=== PATIENT | female | born 1945 | race Caucasian/White ===

== ENCOUNTER 2017-02-27 13:48 | Inpatient (IN) | payer MEDICARE ==
[~2017-02-27] VITALS: Ht 167.6 cm; Wt 76.1 kg
--- NOTE | ~2017-02-27 | HEMODYNAMI ---
PATIENT:PAULINA CHARLES MEDICAL RECORD: [id number] : 41 LOCATION:D.MS [facility]2201 ADMISSION DATE: 02/28/17 Generatedon:03/11/201712:35 Patient name: PAULINA CHARLES Patient #: [id number] SSN: DO B: 1945 Date of study: 03/11/2017 Page: Of Hemodynamic Procedure Report Patient Data Patient Demographics Procedure consent was obtained First Name: PAULINA Gender: Female Last Name: RAACELI : 1945 Middle Initial: M Age: 71 year(s) Patient #: [id number] Race: Unknown Additional ID: [id number] Contact details Address: [address] [place] [address] ROAD State: [place] City: [place] Zip code: [address] Admission Admission Data Admission Date: 02/28/2017 Admission Time: 14:51 Room #: D.2201 Procedure Procedure Types Cath Procedure Peripheral Cath Diagnostic Procedure Miscellaneous Procedure Description Procedure Date Procedure Date: 03/11/2017 Procedure Start Time: 12:16 Procedure Staff Name Function Scar Nunez MD Performing Physician Shazia Moulton RN Nurse Susan Amos RT Scrub Cosme Rea RT Monitor Procedure Data Cath Procedure Fluoroscopy Diagnostic fluoroscopy Total fluoroscopy Time: 1.8 time: 1.8 min min Diagnostic fluoroscopy Total fluoroscopy dose: 48 dose: 48 mGy mGy Contrast Material Contrast Material Type Amount (ml) Isovue 300 25 Hemodynamics Rest Heart Rate: 85 (bpm) Snapshots Pre Cath Intra NCS Post Cath Vital Signs Time Heart Resp SPO2 NIBP (mmHg) Rhythm Pain Sedation Rate (ipm) (%) Status Level (bpm) 11:55:54 84 5 154/84(115) NSR 0 (11) 10(A) , No pain 12:00:12 83 149/82(122) NSR 0 (11) 10(A) , No pain 12:04:28 82 24 143/76(109) NSR 0 (11) 10(A) , No pain 12:08:38 85 2 141/95(124) NSR 0 (11) 10(A) , No pain 12:12:50 85 3 98 142/86(117) NSR 0 (11) 10(A) , No pain 12:17:04 82 30 98 142/81(125) NSR 0 (11) 10(A) , No pain 12:21:20 84 98 149/79(122) NSR 0 (11) 10(A) , No pain 12:26:13 81 26 97 152/83(120) NSR 0 (11) 10(A) , No pain 12:30:33 84 5 97 146/75(122) NSR 0 (11) 10(A) , No pain 12:34:47 81 23 97 148/86(126) NSR 0 (11) 10(A) , No pain Procedure Log Time Note 11:48:02 Cosme Rea RT (R) (CV) sent for patient. Start room use. 11:48:12 Time tracking: Regular hours 11:48:17 Plan of Care:Hemodynamics will remain stable., Cardiac rhythm will remain stable., Comfort level will be maintained., Respiratory function will remain adequate., Patient/ family verbilizes understanding of procedure., Procedure tolerated without complication., Recovers from procedure without complications.. 11:48:26 Patient received from Med/Surg to IR Alert and oriented. Tansferred to table in Supine position. 11:48:30 Correct patient and procedure confirmed by team. 11:48:32 Signed procedure consent form obtained from patient. 11:48:34 ECG and BP/O2 sat monitors applied to patient. 11:48:35 Full Disclosure recording started 11:48:36 - 11:48:39 H&P Date Dictated: 03/11/2017 Within 30 days and on chart.. 11:48:43 Pre-procedure instructions explained to patient. 11:48:45 Family unavailable. 11:48:47 Patient NPO since Midnight. 11:48:49 Is the patient allergic to Iodine/contrast media? No. 11:48:50 Is patient on blood thinner?No 11:48:55 Use device set IR Diagnostic 11:48:56 Bag Decanter opened to sterile field. 11:48:57 Sterile Angiographic Pack opened to sterile field. 11:49:12 Patient pain scale 0/10 no pain\. 11:49:26 Pre-op teaching completed and patient verbalized understanding. 11:49:47 Unable to provide pre-op teaching due to educational barrier. pt deaf wrote and communicated with note pad 11:54:48 Vital chart was started 11:54:49 Baseline sample Acquired. 11:55:00 Alarms reviewed by R. N. 11:55:01 Sharps counted by scrub and verified by R.N. 11:55:07 Right abdomen area was prepped with chlora-prep and draped in sterile fashion 12:14:16 Physician arrived 12:14:16 --------ALL STOP TIME OUT------ 12:14:17 Final Timeout: patient, procedure, and site verified with staff and physician. All members of the team are in agreement. 12:14:20 Right abdomen site verified by team. 12:14:29 Sedation plan: Local Anesthetic Lidocaine 12:16:01 Procedure started. 12:22:47 STOPCOCK 3-WAY LARGE BORE opened to sterile field. 12:25:04 STOPCOCK 3-WAY LARGE BORE opened to sterile field. 12:25:05 Cook DOC .035 guide wire opened to sterile field. 12:25:07 Abscession 8Fr drainage catheter opened to sterile field. 12:32:55 Procedure ended.(Physican Out) 12:33:40 Fluoroscopy time 01.80 minutes. 12:33:45 Fluoroscopy dose: 48 mGy 12:33:45 Flurop Dose total: 48 12:33:54 Contrast amount:Isovue 300 25ml. 12:33:56 Sharps counted by scrub and verified by R.N. 12:33:58 Insertion/operative site no bleeding no hematoma. 12:34:06 Post Abdominal area:stable 12:34:12 Post procedure instruction explained to patient.Patient verbalizes understanding. 12:34:13 Procedure and supply charges have been captured, reviewed, submitted an d are correct. 12:34:19 Report given to Med/Surg. 12:34:23 Patient transfered to Med/Surg with Bed. 12:35:27 Vital chart was stopped Device Usage Item Name Manufacture Quantity Catalog Hospital Part Current Minima l Lot# / Number Charge Number Stock Stock Serial# Code Bag Decanter Microtek 1 [id number] [id number] 5 Medical Inc. Sterile Cardinal 1 [id number] [id number] 5 Angiographic [facility] [id number] 220795 0399 [id number] 5 [id number] 3-WAY LARGE [id number] BORE Cook [facility] Cook Medical 1 [id number] 970675 834063 5 [id number] .035 guide wire Abscession Angiodynamics 1 [id number] 706080 392111 864083 5 8Fr drainage catheter Signature Audit [place] Stage Time Signature Unsigned Intra-Procedure 03/11/2017 Cosme 12:35:24 PM Rona RT (R) (CV) Signatures Monitor : Cosme Signature : Rona RT Date : Time : [place] [id number] [place] [address]
--- NOTE | ~2017-02-27 | HEMODYNAMI ---
PATIENT:PAULINA CHARLES MEDICAL RECORD: [id number] : 41 LOCATION:D.MS [facility]2201 ADMISSION DATE: 02/28/17 Generatedon:03/06/201715:02 Patient name: PAULINA CHARLES Patient #: [id number] SSN: DO B: 1945 Date of study: 03/06/2017 Page: Of Hemodynamic Procedure Report Patient Data Patient Demographics Procedure consent was obtained First Name: PAULINA Gender: Female Last Name: ARACELI : 1945 Middle Initial: M Age: 71 year(s) Patient #: [id number] Race: Unknown Additional ID: [id number] Contact details Address: [address] [place] [address] ROAD State: [place] City: [place] Zip code: [address] Admission Admission Data Admission Date: 02/28/2017 Admission Time: 14:51 Room #: D.2201 Procedure Procedure Types Cath Procedure Peripheral Cath Diagnostic Procedure Miscellaneous Procedure Description Procedure Date Procedure Date: 03/06/2017 Procedure Start Time: 13:54 Procedure Staff Name Function Judd Walker MD Performing Physician Susan Amos RT Scrub Shazia Moulton RN Nurse Cosme Rea RT Monitor Procedure Data Cath Procedure Fluoroscopy Diagnostic fluoroscopy Total fluoroscopy Time: time: 11.5 min 11.5 min Diagnostic fluoroscopy Total fluoroscopy dose: 301 dose: 301 mGy mGy Contrast Material Contrast Material Type Amount (ml) Isovue 300 42 Diagnostic catheters Device Type Used For End Catheter Placement Merit Impress KA 2 5Fr 40CM catheter Hemodynamics Rest Heart Rate: 85 (bpm) Snapshots Pre Cath Intra NCS Post Cath Vital Signs Time Heart Resp SPO2 NIBP (mmHg) Rhythm Pain Sedation Rate (ipm) (%) Status Level (bpm) 13:29:51 94 0 100 Measuring NSR 0 (11) 10(A) , No pain 13:30:09 84 6 100 153/75(107) NSR 0 (11) 10(A) , No pain 13:34:24 71 98 108/52(79) NSR 0 (11) 10(A) , No pain 13:38:35 72 20 98 113/54(76) NSR 0 (11) 10(A) , No pain 13:42:43 70 2 98 91/47(68) NSR 0 (11) 10(A) , No pain 13:46:51 69 18 98 93/48(78) NSR 0 (11) 10(A) , No pain 13:50:59 68 27 98 91/48(74) NSR 0 (11) 10(A) , No pain 13:55:11 76 22 98 99/52(78) NSR 0 (11) 10(A) , No pain 13:59:19 68 28 98 82/47(66) NSR 0 (11) 10(A) , No pain 14:03:26 67 16 98 82/43(64) NSR 0 (11) 10(A) , No pain 14:07:32 67 18 98 92/47(69) NSR 0 (11) 10(A) , No pain 14:11:40 69 18 98 99/54(75) NSR 0 (11) 10(A) , No pain 14:15:52 65 98 84/39(66) NSR 0 (11) 10(A) , No pain 14:20:02 63 25 98 78/37(66) NSR 0 (11) 10(A) , No pain 14:24:08 62 98 85/40(64) NSR 0 (11) 10(A) , No pain 14:28:15 62 9 98 82/42(61) NSR 0 (11) 10(A) , No pain 14:32:23 62 25 98 84/39(67) NSR 0 (11) 10(A) , No pain 14:36:31 61 16 98 86/43(72) NSR 0 (11) 10(A) , No pain 14:40:41 61 13 98 85/37(66) NSR 0 (11) 10(A) , No pain 14:44:49 62 23 98 83/44(61) NSR 0 (11) 10(A) , No pain 14:48:57 60 34 98 82/40(65) NSR 0 (11) 10(A) , No pain 14:52:56 98 No Cuff NSR 0 (11) 10(A) , No pain 14:56:56 No Cuff NSR 0 (11) 10(A) , No pain 15:00:56 No Cuff NSR 0 (11) 10(A) , No pain Procedure Log Time Note 12:57:14 Cosme Rea RT (R) (CV) sent for patient. Start room use. 12:57:25 Time tracking: Regular hours 12:57:30 Plan of Care:Hemodynamics will remain stable., Cardiac rhythm will remain stable., Comfort level will be maintained., Respiratory function will remain adequate., Patient/ family verbilizes understanding of procedure., Procedure tolerated without complication., Recovers from procedure without complications.. 12:57:43 Patient received from Med/Surg to IR Alert and oriented. Tansferred to table in Supine position. 12:57:52 Correct patient and procedure confirmed by team. 12:57:54 Signed procedure consent form obtained from patient. 12:57:55 ECG and BP/O2 sat monitors applied to patient. 12:57:58 - 12:58:23 SEE ANESTHESIA NOTE FOR PRE PROCEDURE TIVA 13:27:40 Use device set IR Diagnostic 13:27:41 Sterile Angiographic Pack opened to sterile field. 13:27:44 Bag Decanter opened to sterile field. 13:28:01 Vital chart was started 13:28:02 Baseline sample Acquired. 13:28:04 Full Disclosure recording started 13:36:45 Right abdomen area was prepped with betadine and draped in sterile fashion 13:36:53 Left abdomen area was prepped with betadine and draped in sterile fashion 13:36:55 Alarms reviewed by R. N. 13:36:55 Sharps counted by scrub and verified by R.N. 13:45:20 Physician arrived 13:45:23 --------ALL STOP TIME OUT------ 13:45:23 Final Timeout: patient, procedure, and site verified with staff and physician. All members of the team are in agreement. 13:45:32 Right abdomen site verified by team. 13:45:36 Left abdomen site verified by team. 13:45:40 Physical assessment completed. ASA score P 4 - A patient with severe systemic disease that is a constant threat to life as per Judd Walker MD. 13:45:44 Sedation plan: TIVA Propofol 13:54:04 Procedure started. 13:54:10 Local anesthetic to Abdominal area with Lidocaine 1% by Judd Walker MD.INITIAL ACCESS ONLY 13:56:50 CHIBA 20 X 15 needle opened to sterile field. 13:56:52 KIT, INTRODUCER ACCUSTICK II W/C opened to sterile field. 14:12:[address]NER .035 145 glide wire opened to sterile field. 14:13:31 A [place] KA 2 5Fr 40CM catheter was advanced over the wire and used for . 14:19:49 Cook MITCHELL 180 guide wire opened to sterile field. 14:19:50 PEEL-A-WAY INTRODUCER 9FR. opened to sterile field. 14:19:51 Terumo 6Fr Sweet Briar Destination Sheath opened to sterile field. 14:20:06 BasixTOUCH Inflation Syringe opened to sterile field. 14:20:21 Terumo 6Fr Sweet Briar Destination Sheath opened to sterile field. 14:20:48 Inflation number: 1 A Cordis Powerflex Pro 6.0 x 40 x 80cm balloon was prepped and advanced across the Undefined1, then inflated 14:30:57 [place] Sci All Purpose 8Fr drainage catheter opened to sterile field. 14:30:58 DILATOR, VESSEL 10/20 opened to sterile field. 14:41:56 SUTURE ETHILON 2-0 BLK MONO FS opened to sterile field. 14:42:17 BAG, DRAINAGE EMPTY 600ML W/ZULEIKA opened to sterile field. 14:44:44 Procedure ended.(Physican Out) 14:45:08 Fluoroscopy time 11.50 minutes. 14:45:19 Fluoroscopy dose: 301 mGy 14:45:19 Flurop Dose total: 301 14:45:23 Contrast amount:Isovue 300 42ml. 14:45:25 Sharps counted by scrub and verified by R.N. 14:45:30 Post Abdominal area:stable 14:45:44 SEE ANESTHESIA NOTE FOR POST PROCEDURE TIVA 15:00:24 Report given to Med/Surg. 15:00:27 Patient transfered to Med/Surg with Bed. 15:02:04 Vital chart was stopped Intervention Summary Intervention Notes Time ActionType Lesion and Equipment Action# Pressure Duration Attributes Used 14:20:48 Inflate Undefined1 Cordis 1 0 00:00 balloon Powerflex Pro 6.0 x 40 x 80cm balloon Device Usage Item Name Manufacture Quantity Catalog Hospital Part Current Minimal Lot# / Number Charge Number Stock Stock Serial# Code Sterile Cardinal 1 [id number] 5 Angiographic Health Pack Bag Decanter Microtek 1 2001S [id number] 69101 935814 5 Medical Inc. CHIBA 20 X [facility] 1 [id number] 097882 849219 5 15 needle KIT, [place] 1 [id number] 308918 375702 483359 5 INTRODUCER Scientific ACCUSTICK II W/C [facility] 1 [id number] 356877 396128 5 [id number] ROADRUNNER .035 145 glide wire Merit Merit 1 [id number] 583314 886853 5 Impress KA 2 Medical 5Fr 40CM catheter [facility] 1 [id number] 504257 489264 5 [id number] 180 guide wire PEEL-A-WAY [facility] 1 I48340 079035 846876 380674 5 [id number] INTRODUCER 9FR. Terumo 6Fr Terumo 2 RSR01 230004 58668 160764 5 Sweet Briar Destination Sheath BasixTOUCH Merit 1 WO2730 772896 712253 123827 5 Inflation Medical Syringe Cordis Cardinal 1 [id number] 092055 678366 357357 5 Powerflex Health Pro 6.0 x 40 x 80cm balloon [place] Sci [place] 1 [id number] 542460 367999 247724 5 All Purpose Scientific 8Fr drainage catheter DILATOR, Cook [facility] 1 K56230 751313 30312 353927 5 [id number] VESSEL 10/20 SUTURE Ethicon 1 664H 575580 132805 5 ETHILON 2-0 BLK MONO FS BAG, Merit 1 RHW728 692542 040046 535052 5 DRAINAGE Medical EMPTY 600ML W/ZULEIKA Signature Audit [place] Stage Time Signature Unsigned Intra-Procedure 03/06/2017 Cosme 3:02:01 PM [place] RT (R) (CV) Signatures Monitor : Cosme Signature : Rona RT Date : Time : [facility] [address] [place] [address]
[2017-02-27 14:37] LABS: BASOPHILS 0.2 % (0-2); EOSINOPHILS 2.5 % (0-7); HEMATOCRIT 35.8 % (36.0-48.0); HEMOGLOBIN 11.9 g/dL (12-16); IMMATURE GRANULOCYTES 0.2 % (0-5); MCH 30.3 pg (26.0-34.0); MCHC 33.2 g/dL (31.0-37.0); MCV 91.1 fL (80.0-100.0); MEAN PLATELET VOLUME 9.3 fL (7.4-10.4); MONOCYTES 8.2 % (2-11); NEUTROPHILS 60.9 % (40-80); PLATELET COUNT 165 10x3/uL (130-400); RBC 3.93 10x6/uL (4.00-5.40); RDW 13.2 % (11.5-14.5); WBC 6.3 10x3/uL (4.8-10.8)
[2017-02-27 14:50] LABS: ALBUMIN 3.6 g/dL (3.4-5.0); ANION GAP 15.6 mmol/L (8-16); BILIRUBIN - TOTAL 0.6 mg/dL (0.2-1.3); CARBON DIOXIDE 23.1 mmol/L (21.0-32.0); CREATININE - SERUM 2.2 mg/dL (0.6-1.3); POTASSIUM - SERUM 4.7 mmol/L (3.5-5.1); PROTEIN - SERUM 8.3 g/dL (6.4-8.2)
[2017-02-27 16:59] LABS: APPEARANCE HAZY (CLEAR); BILIRUBIN NEGATIVE (NEGATIVE); COLOR YELLOW (YELLOW); GLUCOSE NEGATIVE (NEGATIVE); KETONE NEGATIVE (NEGATIVE); LEUKOCYTE ESTERASE 2+ (NEGATIVE); NITRITE NEGATIVE (NEGATIVE); PROTEIN TRACE mg/dL (NEGATIVE); UROBILINOGEN NORMAL (NORMAL)
[2017-02-27 17:01] LABS: BACTERIA MODERATE /hpf (NONE SEEN); EPITHELIAL CELLS 0-5 /hpf (0-5); RED CELLS - URINE 0-5 /hpf (0-5); WHITE CELLS - URINE >50 /hpf (0-5)
[2017-02-27 20:00] VITALS: BP 144/85
[2017-02-28] VITALS (7 sets, daily range): BP systolic 105–144; BP diastolic 49–85; Ht 167.6 cm; Wt 76.1 kg
[2017-02-28 05:44] LABS: BASOPHILS 0.1 % (0-2); EOSINOPHILS 0.9 % (0-7); HEMATOCRIT 33.7 % (36.0-48.0); IMMATURE GRANULOCYTES 0.1 % (0-5); LYMPHOCYTES 21.9 % (15-50); MCH 29.9 pg (26.0-34.0); MCHC 32.6 g/dL (31.0-37.0); MCV 91.6 fL (80.0-100.0); MEAN PLATELET VOLUME 9.6 fL (7.4-10.4); MONOCYTES 9.6 % (2-11); NEUTROPHILS 67.4 % (40-80); PLATELET COUNT 159 10x3/uL (130-400); RBC 3.68 10x6/uL (4.00-5.40); RDW 13.2 % (11.5-14.5); WBC 6.9 10x3/uL (4.8-10.8)
[2017-02-28 05:55] LABS: ANION GAP 12.1 mmol/L (8-16); CALCIUM 8.4 mg/dL (8.5-10.1); CARBON DIOXIDE 24.9 mmol/L (21.0-32.0); CREATININE - SERUM 2.2 mg/dL (0.6-1.3)
--- NOTE | 2017-02-28 07:28 | NUR ---
RECIEVED REPORT, ASSUMED CARE OF PT. PT RESTING IN ROOM, FAMILY AT BEDSIDE. DEAF AND MUTE. NAME WRITTEN ON WHITEBOARD. NO ACUTE DISTRESS NOTED. BED IN LOWEST POSITION, SIDE RAILS UP X 2, CALL LIGHT WITHIN REACH.
[2017-02-28] MEDS ORDERED: LASIX40 MG PO (09:52)
[2017-02-28] MEDS ORDERED: GLIPIZIDE10 MG PO (09:52)
[2017-02-28] MEDS ORDERED: NORVASC5 MG PO (09:53)
[2017-02-28] MEDS ORDERED: LOTENSIN20 MG PO (09:53)
--- NOTE | 2017-02-28 10:00 | NUR ---
PT RESTING IN BED. SON AT BEDSIDE. NO NEEDS EXPRESSED. BED IN LOWEST POSITION, SIDE RAILS UP X 2, CALL LIGHT WITHIN REACH.
--- NOTE | 2017-02-28 10:32 | NUR ---
SPOKE WITH PRAKASH MARTINEZ DRAPERY HEAD FORMER REGARDING PATIENT DEAF AND MUTE. HE WILL ARRANGE FOR AN ADA INTERPERTER AND PROVIDE PATIENT WITH DRY ERASE BOARD PATIENT ALSO COMMUNICATE VIA READING AND WRITING.
--- NOTE | 2017-02-28 12:19 | NUR ---
PT WITH NO SIGNS OF ACUTE DISTRESS. RESTING WITH EYES SHUT. IV SALINE LOCKED. BED IN LOWEST POSITION, SIDE RAILS UP X 2, CALL LIGHT WITHIN REACH.
--- NOTE | 2017-02-28 16:37 | NUR ---
Rehab Note- Acute Rehab Prescreen order received. The patient has [facility] insurance and will require a PreAuth prior to an acute rehab stay. Will need the PT and OT eval completed for PreAuth. Will begin PreAuth process. Thank you fot his referral! Beulah Pat RN Clinical Liaison, [facility] Rehab
[2017-03-01] VITALS (7 sets, daily range): BP systolic 104–157; BP diastolic 43–92
--- NOTE | 2017-03-01 01:10 | NUR ---
RESTING WITHOUT DISTRESS.CALL LIGHT IN REACH
[2017-03-01 06:10] LABS: BASOPHILS 0.2 % (0-2); EOSINOPHILS 0.8 % (0-7); HEMOGLOBIN 10.3 g/dL (12-16); IMMATURE GRANULOCYTES 0.4 % (0-5); LYMPHOCYTES 16.5 % (15-50); MCHC 32.2 g/dL (31.0-37.0); MCV 93.3 fL (80.0-100.0); MEAN PLATELET VOLUME 9.3 fL (7.4-10.4); MONOCYTES 8.4 % (2-11); NEUTROPHILS 73.7 % (40-80); PLATELET COUNT 150 10x3/uL (130-400); RBC 3.43 10x6/uL (4.00-5.40); RDW 13.1 % (11.5-14.5); WBC 8.3 10x3/uL (4.8-10.8)
[2017-03-01 06:21] LABS: ANION GAP 13.6 mmol/L (8-16); CALCIUM 8.1 mg/dL (8.5-10.1); CARBON DIOXIDE 22.8 mmol/L (21.0-32.0); CREATININE - SERUM 2.5 mg/dL (0.6-1.3); POTASSIUM - SERUM 4.4 mmol/L (3.5-5.1)
--- NOTE | 2017-03-01 07:10 | NUR ---
RECIEVED REPORT, ASSUMED CARE OF PATIENT. NO ACUTE DISTRESS NOTED. FAMILY AT BEDSIDE. R HAND IV SALINE LOCKED, DRSG CLEAN, DRY AND INTACT. BED IN LOWEST POSITION, SIDE RAILS UP X 2, CALL LIGHT WITHIN REACH.
--- NOTE | 2017-03-01 14:57 | NUR ---
IN AND OUT CATHETER PERFORMED ORDERED. STERILE TECHNIQUE USED, ALL CONTENTS OF PACKAGE USED. PT TOLERATED WITH MINIMAL DISCOMFORT. RITA CARE PERFORMED. BED IN LOWEST POSITION, SIDE RAILS UP X 2, CALL LIGHT WITHIN REACH.
--- NOTE | 2017-03-01 14:58 | NUR ---
URINE SPECIMEN VIA IN AND OUT CATH COLLECTED. SENT TO LAB.
--- NOTE | 2017-03-01 15:44 | NUR ---
Patient Name: PAULINA CHARLES Admission Status: ER Accout number: [id number] Admission Date: 02-28-2017 : 1945 Admission Diagnosis:URINARY TRACT INFECTION, SITE NOT SPECIFIED Attending: GINETTE Current LOS: 1 Anticipated DC Date: 03-04-2017 Planned Disposition: Home Primary Insurance: [facility] Discharge Planning Comments: CM MET WITH PATIENTS DAUGHTER IN LAW WHO CONTACTED SON ON PHONE TO SPEAK WITH CM. SON STATED SHE LIVES ALONE AND REALLY NEEDS REHAB AT DISCHARGE. SON HAD SIGN MARY FORM FOR HIM FOR [facility]. PATIENT HAS BEEN INDEPENDENT WITH HER CARE AND HAS A WALKER, WHEELCHAIR, GLUCOMETER, AND SHOWER CHAIR AT HOME. PATIENTS CHECKS HER SUGAR 2X DAILY. PATIENT HAS NO STEPS OR STAIRS AT HER HOME PER SON. PATIENTS PCP IS DR. WIGGINS AND PHARMACY IS [facility]. CM WILL CONTINUE TO FOLLOW PATIENT WITH D/C NEEDS AND PLANS. PCP DR. FELICIANO FLEMING ON [facility]- [phone] BHARGAVI CHARLES (SON) [phone] [place] [phone] Lead Simulation Modeling Engineer: Monica Falcon How many steps to enter\exit or inside your home? 0 0 * PCP DR. WIGGINS 0 * Pharmacy [facility] 0 * Preadmission Environment Home with Family 0 * ADLs Independent 0 * Equipment Glucometer Shower Chair Walker Wheelchair 0 * List name and contact numbers for known caregivers / representatives who currently or will assist patient after discharge: BHARGAVI CHARLES (SON) [phone] * Community resources currently utilized None 0 * Additional services required to return to the preadmission environment? Yes 0 * Can the patient safely return to the preadmission environment? No 0 * Has this patient been hospitalized within the prior 30 days at any hospital? No 0 Grand Total: 0
--- NOTE | 2017-03-01 16:02 | NUR ---
Rehab Note- Prescreen started with [facility], reference #[id number]. Will continue to follow the patient at this time. Thank you for this referral! Beulah Pat RN Clinical Liaison, [facility] Rehab
--- NOTE | 2017-03-01 18:29 | NUR ---
OT NOTE: PT COMPLETED SIMPLE GROOMING TASK WITH SET UP. PT COMPLETED BUE AROM EXS FOR INCREASED ENDURANCE WITH BED MOB. THANK YOU, VESNA ORTIZ/Husam
--- NOTE | 2017-03-01 19:05 | NUR ---
PT RESTING IN ROOM, EYES SHUT, EASILY AWAKE. WHITE BOARD USED, NO COMPLAINTS OR NEEDS AT THIS TIME. FAMILY AT BEDSIDE. IV INFUSING ORDERED, PATENT, DRSG CLEAN, DRY AND INTACT. BED IN LOWEST POSITION, SIDE RAILS UP X 2, CALL LIGHT WITHIN REACH.
--- NOTE | 2017-03-01 19:07 | NUR ---
PT IS LYING IN BED WITH EYES CLOSED. EVEN RISE AND FALL OF CHEST, NO SIGNS OF DISTRESS, BED IN LOW POSITION, CALL LIGHT IN REACH
--- NOTE | 2017-03-02 02:00 | NUR ---
PT SLEEPING. RESP EVEN, UNLABORED. NO DISTRESS NOTED. CONTINUE YARD DRIVER'S PLAN OF CARE.
[2017-03-02 03:58] VITALS: BP 136/74
[2017-03-02 06:19] LABS: BASOPHILS 0.1 % (0-2); EOSINOPHILS 1.1 % (0-7); HEMATOCRIT 31.6 % (36.0-48.0); HEMOGLOBIN 10.1 g/dL (12-16); IMMATURE GRANULOCYTES 0.4 % (0-5); LYMPHOCYTES 19.1 % (15-50); MCV 93.8 fL (80.0-100.0); MEAN PLATELET VOLUME 9.4 fL (7.4-10.4); MONOCYTES 12.3 % (2-11); PLATELET COUNT 157 10x3/uL (130-400); RBC 3.37 10x6/uL (4.00-5.40); RDW 13.4 % (11.5-14.5); WBC 8.6 10x3/uL (4.8-10.8)
[2017-03-02 06:29] LABS: ANION GAP 11.6 mmol/L (8-16); CALCIUM 8.2 mg/dL (8.5-10.1); CARBON DIOXIDE 24.4 mmol/L (21.0-32.0); CREATININE - SERUM 2.7 mg/dL (0.6-1.3)
--- NOTE | 2017-03-02 07:56 | NUR ---
SLEEPING, NO DISTRESS NOTED, BREATHING EVEN UNLABORED, FAMILY AT BEDSIDE, CALL LIGHT IN REACH, BED LOWEST POSITION, WILL CONTINUE TO MONITOR
[2017-03-02 09:02] VITALS: BP 118/49
[2017-03-02 12:44] VITALS: BP 126/66
--- NOTE | 2017-03-02 13:00 | NUR ---
PATIENT ALERT IN BED WITH PHYSICIAN AT BEDSIDE. NO SIGNS OF DISTRESS NOTED. SIDE RAILS UP X2. BED IN LOW POSITION. CALL LIGHT IN REACH.
[2017-03-02 15:36] VITALS: BP 129/70
[2017-03-02 18:28] LABS: CREATININE - URINE 112.9 mg/dL (30-125); PROTEIN - URINE 93.8 mg/dL (0.0-11.9)
[2017-03-02 19:00] VITALS: BP 125/55
[2017-03-03] VITALS: BP 112/54
[2017-03-03 04:00] VITALS: BP 99/47
--- NOTE | 2017-03-03 05:08 | NUR ---
RIGHT HAND IV CAME OUT. RESITED 22 G TO RIGHT FOREARM BY DARWIN WOODS.
[2017-03-03 07:31] LABS: BASOPHILS 0.2 % (0-2); EOSINOPHILS 0.9 % (0-7); HEMATOCRIT 29.3 % (36.0-48.0); HEMOGLOBIN 9.6 g/dL (12-16); IMMATURE GRANULOCYTES 0.5 % (0-5); LYMPHOCYTES 12.8 % (15-50); MCH 30.3 pg (26.0-34.0); MCHC 32.8 g/dL (31.0-37.0); MCV 92.4 fL (80.0-100.0); MEAN PLATELET VOLUME 9.4 fL (7.4-10.4); MONOCYTES 12.9 % (2-11); NEUTROPHILS 72.7 % (40-80); PLATELET COUNT 145 10x3/uL (130-400); RBC 3.17 10x6/uL (4.00-5.40); RDW 13.3 % (11.5-14.5); WBC 8.5 10x3/uL (4.8-10.8)
--- NOTE | 2017-03-03 07:45 | NUR ---
SLEEPING, FAMILY AT BEDSIDE, NO DISTRESS NOTED, BREATHING EVEN UNLABORED, BED LOWEST POSITION, CALL LIGHT IN REACH, WILL CONTINUE TO MONITOR
[2017-03-03 08:01] LABS: CALCIUM 8.1 mg/dL (8.5-10.1); CARBON DIOXIDE 21.4 mmol/L (21.0-32.0); CREATININE - SERUM 2.6 mg/dL (0.6-1.3); POTASSIUM - SERUM 4.4 mmol/L (3.5-5.1)
--- NOTE | 2017-03-03 11:45 | NUR ---
RESTING QUIETLY WITH EYES CLOSED. FAMILY AT BEDSIDE. DENIES NEEDS. NO CHANGES NOTED.
[2017-03-03 12:33] VITALS: BP 100/47
--- NOTE | 2017-03-03 19:35 | NUR ---
PATIENT RESTING IN BED WITH EYES CLOSED AND NO VISIBLE SIGNS OF DISTRESS. BED IN LOWEST POSITION AND CALL LIGHT WITHIN REACH.
[2017-03-03 20:00] VITALS: BP 121/62
[2017-03-04] VITALS: BP 120/60
[2017-03-04 04:00] VITALS: BP 126/69
[2017-03-04 06:34] LABS: BASOPHILS 0.1 % (0-2); EOSINOPHILS 2.7 % (0-7); HEMATOCRIT 28.9 % (36.0-48.0); HEMOGLOBIN 9.3 g/dL (12-16); IMMATURE GRANULOCYTES 0.1 % (0-5); LYMPHOCYTES 15.9 % (15-50); MCH 29.7 pg (26.0-34.0); MCHC 32.2 g/dL (31.0-37.0); MCV 92.3 fL (80.0-100.0); MEAN PLATELET VOLUME 9.3 fL (7.4-10.4); MONOCYTES 11.4 % (2-11); NEUTROPHILS 69.8 % (40-80); PLATELET COUNT 169 10x3/uL (130-400); RBC 3.13 10x6/uL (4.00-5.40); RDW 13.3 % (11.5-14.5)
[2017-03-04 06:45] LABS: ANION GAP 13.4 mmol/L (8-16); CALCIUM 8.2 mg/dL (8.5-10.1); CARBON DIOXIDE 21.9 mmol/L (21.0-32.0); CREATININE - SERUM 2.6 mg/dL (0.6-1.3); POTASSIUM - SERUM 4.3 mmol/L (3.5-5.1)
--- NOTE | 2017-03-04 07:30 | NUR ---
RECIEVED PT DURING WALKING ROUNDS, PT RESTING IN BED WITH NO COMPLAINTS OF PAIN OR DISCOMFORT AT THIS TIME, PAIN PRESENT TO RIGHT ARM WHEN TOUCHED. ASSESSMENT DONE PER FLOWSHEET. BED IN LOW POSITION AND CALL LIGHT WITHIN REACH. WILL CONTINUE TO MONITOR.
[2017-03-04 08:17] VITALS: BP 113/58
--- NOTE | 2017-03-04 11:50 | NUR ---
URINE COLLECTION BAG CHANGED AT THIS TIME, 24-HR URINE STARTED.
--- NOTE | 2017-03-04 11:52 | NUR ---
Rehab Note- contacted from Ilene with [facility], requesting clnicals to be faxed. Faxed at this time to [phone]. [facility]. Will continue to follow the patient at this time. Beulah Pat RN Clinical Liaison, [facility] Rehab
[2017-03-04 12:03] VITALS: BP 117/60
[2017-03-04 16:14] VITALS: BP 116/62
--- NOTE | 2017-03-04 19:06 | NUR ---
PT IS SITTING UP IN BED, LT ARM SHOWS NO SIGNS OF SWELLING, PT IS STILL PROPPED UP IN BED, RASH ON BACK RED W/ SOME BLISTERS, NO SIGNS OF DISTRESS, BED IN LOW POSITION, VALLES BAG IN ICE FOR 24 HOUR URINE CATCH, NO OTHER NEEDS AT THIS TIME
[2017-03-04 20:00] VITALS: BP 123/60
--- NOTE | 2017-03-04 22:52 | NUR ---
PATIENT ON AIRBORNE ISOLATION. ISOLATION PRECAUTIONS MAINTAINED. PATIENT IS DEAF, SHE POINTED AT THE LIGHT AND MOTIONED A DOWN SIGNAL I TURNED OFF THE LIGHT, SHE SMILED AND MOTIONED HER HAND IN THE YES MOTION. BED IN LOWEST POSITION, CALL LIGHT IN REACH, BED RAILS UP X'S 2.NASAL CANNULA ON. NO SIGNS OF DISTRESS NOTED.
[2017-03-05] VITALS: BP 117/89
[2017-03-05 04:00] VITALS: BP 118/60
[2017-03-05 05:48] LABS: BASOPHILS 0.1 % (0-2); EOSINOPHILS 3.1 % (0-7); HEMATOCRIT 29.3 % (36.0-48.0); HEMOGLOBIN 9.5 g/dL (12-16); IMMATURE GRANULOCYTES 0.3 % (0-5); LYMPHOCYTES 19.4 % (15-50); MCH 29.4 pg (26.0-34.0); MCHC 32.4 g/dL (31.0-37.0); MCV 90.7 fL (80.0-100.0); MEAN PLATELET VOLUME 9.8 fL (7.4-10.4); MONOCYTES 12.3 % (2-11); NEUTROPHILS 64.8 % (40-80); PLATELET COUNT 189 10x3/uL (130-400); RBC 3.23 10x6/uL (4.00-5.40); RDW 13.2 % (11.5-14.5); WBC 6.7 10x3/uL (4.8-10.8)
[2017-03-05 06:04] LABS: ANION GAP 14.5 mmol/L (8-16); CALCIUM 8.3 mg/dL (8.5-10.1); CARBON DIOXIDE 21.1 mmol/L (21.0-32.0); CREATININE - SERUM 2.7 mg/dL (0.6-1.3); PHOSPHOROUS 4.2 mg/dL (2.5-4.9)
[2017-03-05 06:05] LABS: POTASSIUM - SERUM 3.6 mmol/L (3.5-5.1)
--- NOTE | 2017-03-05 07:35 | NUR ---
TAKEN TO IMAGING DEPARTMENT VIA BED AT THIS TIME.
[2017-03-05 09:29] VITALS: BP 138/78
--- NOTE | 2017-03-05 09:30 | NUR ---
SCHEDULED MEDICATIONS TAKEN WITHOUT DIFFICULTY AT THIS TIME. SON AT BEDSIDE. URINE REMAINS ON ICE IN VALLES BAG AND IN ORANGE 24HR COLLECTION CANISTER. ASSESSMENT PERFORMED PER FLOWSHEET. CALL LIGHT IN REACH, REMAINS IN AIRBORN ISOLATION. WILL CONTINUE WITH PLAN OF CARE.
--- NOTE | 2017-03-05 10:54 | NUR ---
Rehab Note- received call from [facility] requesting updated PT notes. Spoke with Yasir with PT to get an updated note for patient's progress. Will fax updated note when avaliable. Will continue to follow at this time. Beulah Pat RN Clinical Liaison, [facility] Rehab
--- NOTE | 2017-03-05 11:14 | NUR ---
IV OUT BY ACCIDENT WITH CATH TIP INTACT. BED BATH PERFORMED AT THIS TIME. PT REPOSITIONED FOR COMFORT.
--- NOTE | 2017-03-05 12:00 | NUR ---
VALLES CARE PROVIDED WITH VALLES CARE WIPES AT THIS TIME.
[2017-03-05 12:24] VITALS: BP 131/66
--- NOTE | 2017-03-05 12:59 | NUR ---
NUTRITION MONITORING & EVAL CHART REVIEWED. PT CURRENTLY IN ISOLATION. PRESCRIPTION CLERK REPORTS PT EATING ~ 75% OF MEALS. WILL CONTINUE TO PROVIDE ADA DIET, MONITOR INTAKE. RD FOLLOWING
[2017-03-05 13:51] LABS: PROTEIN - URINE 43.8 mg/dL (0.0-11.9)
[2017-03-05 16:14] VITALS: BP 117/69
--- NOTE | 2017-03-05 18:10 | NUR ---
SCHEDULED LASIX ADMINISTERED AT THIS TIME. DISCUSSED PT'S PROCEDURE WITH HER USING DISCUSSION BOARD AND SHE SHAKES HER HEAD YES IN UNDERSTANDING.
[2017-03-05 20:00] VITALS: BP 108/67
[2017-03-06] VITALS (10 sets, daily range): BP systolic 95–135; BP diastolic 49–71
[2017-03-06 06:21] LABS: BASOPHILS 0.3 % (0-2); HEMATOCRIT 30.7 % (36.0-48.0); HEMOGLOBIN 9.9 g/dL (12-16); IMMATURE GRANULOCYTES 0.2 % (0-5); MCH 29.5 pg (26.0-34.0); MCHC 32.2 g/dL (31.0-37.0); MCV 91.4 fL (80.0-100.0); MEAN PLATELET VOLUME 9.6 fL (7.4-10.4); NEUTROPHILS 58.5 % (40-80); PLATELET COUNT 208 10x3/uL (130-400); RBC 3.36 10x6/uL (4.00-5.40); RDW 13.2 % (11.5-14.5); WBC 6.3 10x3/uL (4.8-10.8)
[2017-03-06 06:38] LABS: APTT 33.2 SECONDS (22.8-39.4); INR 1.17 (0.85-1.17); PROTIME 14.8 SECONDS (11.6-15.0)
[2017-03-06 06:41] LABS: ANION GAP 15.7 mmol/L (8-16); BILIRUBIN - TOTAL 0.3 mg/dL (0.2-1.3); CALCIUM 8.3 mg/dL (8.5-10.1); CARBON DIOXIDE 22.9 mmol/L (21.0-32.0); CREATININE - SERUM 2.6 mg/dL (0.6-1.3); POTASSIUM - SERUM 3.6 mmol/L (3.5-5.1); PROTEIN - SERUM 6.7 g/dL (6.4-8.2)
--- NOTE | 2017-03-06 07:05 | NUR ---
ASSISTED PATIENT OFF OF BEDPAN AT THIS TIME. PT REMAINS NPO WITH IV TO RIGHT WRIST. REMAINS IN AIRBORNE ISOLATION FOR SHINGLES. CALL LIGHT IN REACH, WILL CONTINUE WITH PLAN OF CARE.
--- NOTE | 2017-03-06 10:15 | NUR ---
SCHEDULED EPOGEN ADMINISTERED PER ORDER. EXPLAINED TO PT THROUGH COMMUNICATION BOARD THAT HER PROCEDURE WOULD BE AROUND 1PM TODAY. PT NODDED IN UNDERSTANDING. REMAINS NPO AND IN ISOLATION. CALL LIGHT IN REACH, WILL CONTINUE WITH PLAN OF CARE.
--- NOTE | 2017-03-06 12:50 | NUR ---
TAKEN FOR PROCEDURE AT THIS TIME. WILL MONITOR PT WHEN SHE RETURNS.
--- NOTE | 2017-03-06 14:28 | NUR ---
Rehab Note- Received call from Gurvinder with [facility], stated that their pediatric medical assistant had denied the patient an acute rehab stay due to unable to tolerate the required 3hrs/day of therapy and could receive care at a lower level. Called & notified LU Gao of this. Reference #[id number], a peer to peer can be set up prior to Mar 07 at 1500 by calling the peer to peer hot line [phone]. Thank you for this referral! Beulah Pat RN Clinical Liaison, [facility] Rehab
--- NOTE | 2017-03-06 15:06 | NUR ---
REPORT RECEIVED FROM DARWIN COLLADO IN SPECIALS AT THIS TIME. WILL MONITOR PT WHEN SHE RETURNS TO ROOM 2201.
--- NOTE | 2017-03-06 15:17 | NUR ---
BACK FROM SURGERY AT THIS TIME. VITAL SIGNS STABLE. WILL MONITOR.
--- NOTE | 2017-03-06 15:19 | NUR ---
NOTIFIED PT'S SON, BHARGAVI THAT PROCEDURE WAS DONE AND PT WAS BACK TO HER ROOM IN STABLE CONDITION.
--- NOTE | 2017-03-06 23:20 | NUR ---
PATIENT IS RESTING QUIETLY WITH EYES CLOSED. NO SIGNS OF DISTRESS NOTED. AIRBORNE PRECAUTIONS MAINTAINED. BED IN LOWEST POSITION, CALL LIGHT IN REACH. BED RAILS UP X'S 2.
[2017-03-07 04:00] VITALS: BP 127/73
[2017-03-07 04:56] LABS: BASOPHILS 0.1 % (0-2); EOSINOPHILS 3.4 % (0-7); HEMOGLOBIN 9.8 g/dL (12-16); IMMATURE GRANULOCYTES 0.3 % (0-5); LYMPHOCYTES 17.3 % (15-50); MCH 29.9 pg (26.0-34.0); MCHC 32.7 g/dL (31.0-37.0); MCV 91.5 fL (80.0-100.0); MEAN PLATELET VOLUME 9.4 fL (7.4-10.4); MONOCYTES 9.2 % (2-11); NEUTROPHILS 69.7 % (40-80); PLATELET COUNT 206 10x3/uL (130-400); RBC 3.28 10x6/uL (4.00-5.40); RDW 13.1 % (11.5-14.5); WBC 6.8 10x3/uL (4.8-10.8)
[2017-03-07 05:11] LABS: ANION GAP 14.9 mmol/L (8-16); BILIRUBIN - TOTAL 0.3 mg/dL (0.2-1.3); CALCIUM 8.4 mg/dL (8.5-10.1); CARBON DIOXIDE 23.9 mmol/L (21.0-32.0); CREATININE - SERUM 2.3 mg/dL (0.6-1.3); PHOSPHOROUS 3.9 mg/dL (2.5-4.9); POTASSIUM - SERUM 3.8 mmol/L (3.5-5.1); PROTEIN - SERUM 6.7 g/dL (6.4-8.2)
--- NOTE | 2017-03-07 07:30 | NUR ---
AWAKE AND ALERT. ORIENTED X3. RESPONDS APPROPRIATELY TO YES/NO QUESTIONS. LUNGS ARE CLEAR BILATERALLY, NO COUGH NOTED. SKIN IS INTACT WITHOUT REDNESS EXCEPT TO RIGHT MID TO OUTER BACK WHICH HAS A OPEN AREA AND A ROUGH AREA NOTED. NEPHROSTOMY TUBE FOUND TO BE LEAKING. REATTACHED PER NURSE AND FLOWING WELL NOW. WILL MONITOR. IV TO RIGHT WRIST IS PATENT WITHOUT REDNESS AT INSERTION SITE. DENIES NEEDS AT THIS TIME.
--- NOTE | 2017-03-07 10:00 | NUR ---
ATE ALMOST ALL OF BREAKFAST. TOOK AM MEDS WITHUT DIFFICULTY.
[2017-03-07 10:19] VITALS: BP 133/68
[2017-03-07 13:28] VITALS: BP 134/64
--- NOTE | 2017-03-07 16:35 | NUR ---
OT NOTE: PT COMPLETED SIMPLE HYGIENE TASK WITH MIN A. PT COMPLETED BUE AROM EXS FOR INCREASED AX TOLERANCE. THANK YOU, VESNA ORTIZ/Husam
[2017-03-07 18:10] VITALS: BP 125/65
--- NOTE | 2017-03-07 18:54 | NUR ---
ATE ONLY A FEW BITES OF SUPPER. NO CHANGES NOTED.
--- NOTE | 2017-03-07 19:06 | NUR ---
PT IS LYING IN BED VISITING WITH SP, STATED FOOT IS DOING VERY WELL AND HAS STOPPED BLEEDING WHEN DRESSING WAS CHANGED THIS MORNING. NO COMPLAINTS OF PAIN, STILL UNHAPPY IN REGARDS TO BEING BEDRIDDEN, REINFORCED TEACHING OF STAYING OFF FOOT TO REDUCE SWELLING. BED IS IN LOW POSITION, CALL LIGHT IN REACH, WILL CONTINUE WITH PLAN OF CARE FOR PT
[2017-03-07 20:00] VITALS: BP 129/69
[2017-03-07 23:37] VITALS: BP 124/69
--- NOTE | 2017-03-08 02:00 | NUR ---
PATIENT RESTING WITH EYES CLOSED AND NO VISIBLE SIGNS OF DISTRESS. BED IN LOWEST POSITION AND CALL LIGHT WITHIN REACH.
[2017-03-08 04:00] VITALS: BP 125/65
[2017-03-08 05:02] LABS: BASOPHILS 0.4 % (0-2); EOSINOPHILS 2.5 % (0-7); HEMATOCRIT 30.3 % (36.0-48.0); HEMOGLOBIN 9.6 g/dL (12-16); IMMATURE GRANULOCYTES 0.3 % (0-5); LYMPHOCYTES 18.4 % (15-50); MCH 29.3 pg (26.0-34.0); MCHC 31.7 g/dL (31.0-37.0); MCV 92.4 fL (80.0-100.0); MEAN PLATELET VOLUME 9.6 fL (7.4-10.4); MONOCYTES 10.3 % (2-11); NEUTROPHILS 68.1 % (40-80); PLATELET COUNT 228 10x3/uL (130-400); RBC 3.28 10x6/uL (4.00-5.40); RDW 13.2 % (11.5-14.5); WBC 7.6 10x3/uL (4.8-10.8)
[2017-03-08 05:15] LABS: ALBUMIN 2.1 g/dL (3.4-5.0); ANION GAP 17.1 mmol/L (8-16); BILIRUBIN - TOTAL 0.29 mg/dL (0.2-1.3); CALCIUM 8.4 mg/dL (8.5-10.1); CARBON DIOXIDE 21.6 mmol/L (21.0-32.0); PHOSPHOROUS 3.5 mg/dL (2.5-4.9); POTASSIUM - SERUM 3.7 mmol/L (3.5-5.1); PROTEIN - SERUM 6.9 g/dL (6.4-8.2)
--- NOTE | 2017-03-08 07:52 | NUR ---
PATIENT IN BED WITH EYES CLOSED RESTING QUIETLY AT THIS TIME. NO SIGNS OF DISTRESS. CALL LIGHT WITHIN REACH.
[2017-03-08 09:23] VITALS: BP 151/92
--- NOTE | 2017-03-08 09:40 | NUR ---
REFERRAL SENT TO [facility]
[2017-03-08 13:23] VITALS: BP 129/67
--- NOTE | 2017-03-08 14:10 | NUR ---
PATIENT NEPHROSTOMY CLAMP TURNED BACK ON. REGGIE STATED HE DIDNT WANT IT CLAMPED ANYMORE. FLUSHED WITH 10 ML OF SALINE. DRAIN STILL LEAKING. PATIENT CHANGED AND REPOSITIONED. IV INTACT. NO COMPLAINTS. DENIES NEEDS AT THIS TIME. CALL LIGHT WITHIN REACH.
[2017-03-08 17:27] VITALS: BP 137/68
--- NOTE | 2017-03-08 18:45 | NUR ---
PATIENT IN BED WITH IV INTACT. NO COMPLAINTS AT THIS TIME. RESTING QUIETLY. CALL LIGHT WITHIN REACH.
[2017-03-08 20:00] VITALS: BP 145/73
--- NOTE | 2017-03-08 20:30 | NUR ---
ALERT,ORIENTED. PATENT IS MUTE AND DEAF. DENIES DISCCOMFORT. IV INFUSING TO RIGHT ARM WITOUT REDNESS OR EDEMA NOTED. NEPHROSTOMY TUBE PATENT AND DRAINING. VALLES PATENT AND DRAINING CLEAR YELLOW URINE. CL IN REACH.
[2017-03-09] VITALS: BP 140/72
--- NOTE | 2017-03-09 00:40 | NUR ---
RESTING QUIETLY. NO DISTRESS NOTED. CL IN REACH
--- NOTE | 2017-03-09 03:19 | NUR ---
AIRBORNE ISOLATION. PT RESTING QUIETLY, EYES CLOSED. RESP EASY, UNLABORED. NO DISTRESS NOTED. CONTINUE SUPERVISOR SULFURIC AC[employer] PLANT'S PLAN OF CARE.
[2017-03-09 04:00] VITALS: BP 139/77
--- NOTE | 2017-03-09 05:19 | NUR ---
AROUSES EASIY. NO DISTRESS NOTED. CL IN REACH
[2017-03-09 05:54] LABS: BASOPHILS 0.4 % (0-2); EOSINOPHILS 2.8 % (0-7); HEMATOCRIT 29.8 % (36.0-48.0); HEMOGLOBIN 9.5 g/dL (12-16); IMMATURE GRANULOCYTES 0.4 % (0-5); LYMPHOCYTES 24.5 % (15-50); MCH 29.5 pg (26.0-34.0); MCHC 31.9 g/dL (31.0-37.0); MCV 92.5 fL (80.0-100.0); MEAN PLATELET VOLUME 9.4 fL (7.4-10.4); MONOCYTES 10.3 % (2-11); NEUTROPHILS 61.6 % (40-80); PLATELET COUNT 225 10x3/uL (130-400); RBC 3.22 10x6/uL (4.00-5.40); RDW 13.3 % (11.5-14.5); WBC 7.2 10x3/uL (4.8-10.8)
[2017-03-09 06:02] LABS: ALBUMIN 2.1 g/dL (3.4-5.0); ANION GAP 13.3 mmol/L (8-16); BILIRUBIN - TOTAL 0.3 mg/dL (0.2-1.3); CALCIUM 8.5 mg/dL (8.5-10.1); CARBON DIOXIDE 23.2 mmol/L (21.0-32.0); CREATININE - SERUM 1.9 mg/dL (0.6-1.3); PHOSPHOROUS 3.7 mg/dL (2.5-4.9); POTASSIUM - SERUM 3.5 mmol/L (3.5-5.1); PROTEIN - SERUM 6.6 g/dL (6.4-8.2)
--- NOTE | 2017-03-09 07:20 | NUR ---
REPORT RECIEVED, ASSUMED CARE OF PT. AIRBORNE PRECAUTIONS IN PLACE, PT SLEEPING, EASILY AROUSED. NO SIGNS OF ACUTE DISTRESS AT THIS TIME. BED IN LOWEST POSITION, SIDE RAILS UP X 2, CALL LIGHT WITHIN REACH.
[2017-03-09 09:50] VITALS: BP 142/74
[2017-03-09 11:51] VITALS: BP 140/68
[2017-03-09 16:20] VITALS: BP 139/71
--- NOTE | 2017-03-09 18:45 | NUR ---
PT RESTING IN ROOM, EYES SHUT, EASILY AROUSED. NO SIGNS OF ACUTE DISTRESS. BED IN LOWEST POSITION, SIDE RAILS UP X 2, CALL LIGHT WITHIN REACH.
--- NOTE | 2017-03-09 19:56 | NUR ---
REC'D IN BED AWAKE AND ALERT. RESP EVEN AND UNLABORED WITH NO DISRESS NOTED. NO PAIN OR DISCOMFORT NOTED SUCH MOANING OR FACIAL GRIMACES. ASSESSMENT COMPLETED. C/L IN REACH AT BEDSIDE.
[2017-03-09 20:00] VITALS: BP 144/72
--- NOTE | 2017-03-09 20:10 | NUR ---
PATIENT IS AWAKE AND ALERT. WROTE TO PATIENT TO TELL HER I WAS CHECKING ON HER PATIENT SMILING AND HAND MOTIONED SHE'S OKAY. THEN SHE POINTED TO THE LIGHT AND OFF. HANDED HER HER CALL LIGHT THAT WAS IN HER LAP, SHOWED HER THE NURSE BUTTON SHE SMILED AND NODDED YES. TURNED OFF THE LIGHT. AIRBORNE ISOLATION PRECAUTIONS MAINTAINED.
[2017-03-10] VITALS: BP 141/74
[2017-03-10 04:00] VITALS: BP 141/74
[2017-03-10 04:39] LABS: BASOPHILS 0.3 % (0-2); EOSINOPHILS 2.8 % (0-7); HEMATOCRIT 30.9 % (36.0-48.0); HEMOGLOBIN 9.8 g/dL (12-16); IMMATURE GRANULOCYTES 0.4 % (0-5); LYMPHOCYTES 23.2 % (15-50); MCH 29.3 pg (26.0-34.0); MCHC 31.7 g/dL (31.0-37.0); MCV 92.5 fL (80.0-100.0); MEAN PLATELET VOLUME 9.2 fL (7.4-10.4); NEUTROPHILS 62.3 % (40-80); PLATELET COUNT 237 10x3/uL (130-400); RBC 3.34 10x6/uL (4.00-5.40); RDW 13.5 % (11.5-14.5); WBC 7.1 10x3/uL (4.8-10.8)
[2017-03-10 04:50] LABS: ALBUMIN 2.1 g/dL (3.4-5.0); ANION GAP 13.4 mmol/L (8-16); BILIRUBIN - TOTAL 0.4 mg/dL (0.2-1.3); CALCIUM 8.7 mg/dL (8.5-10.1); CARBON DIOXIDE 23.2 mmol/L (21.0-32.0); CREATININE - SERUM 1.8 mg/dL (0.6-1.3); POTASSIUM - SERUM 3.6 mmol/L (3.5-5.1); PROTEIN - SERUM 6.8 g/dL (6.4-8.2)
--- NOTE | 2017-03-10 07:05 | NUR ---
REPORT RECIEVED, ASSUMED CARE OF PT. NO COMPLAINTS AT THIS TIME. BED IN LOWEST POSITION, SIDE RAILS UP X 2, CALL LIGHT WITHIN REACH.
[2017-03-10 09:40] VITALS: BP 137/69
[2017-03-10 12:46] VITALS: BP 146/72
--- NOTE | 2017-03-10 16:03 | NUR ---
PATIENT HAS NEPHROSTOGRAM WITH POSSIBLE DRAIN REMOVAL PLANNED FOR SATURDAY PER IR 03/08 NOTE. LU SPOKE WITH WEEKEND TRUST MANAGER AT [facility]. SHE DOES NOT HAVE ANY INFORMATION REGARDING ACCEPTANCE. LU SPOKE WITH DR MACK.
[2017-03-10 16:26] VITALS: BP 132/68
--- NOTE | 2017-03-10 18:47 | NUR ---
PT RESTING IN BED, NO COMPLAINTS AT THIS TIME. NO SIGNS OF ACUTE DISTRESS, BED IN LOWEST POSITION, SIDE RAILS UP X 2, CALL LIGHT WITHIN REACH.
--- NOTE | 2017-03-10 19:53 | NUR ---
REC'D IN BED AWAKE WITH NO DISTRESS NOTED. RESP EVEN AND UNLABORED WITH NO DISTRESS NOTED. NO C/O NOTED AT THIS TIME. NO MOANING OR GROANING NOTED. ASSESSMENT COMPLETED. C/L IN REACH AT BEDSIDE.
[2017-03-10 20:00] VITALS: BP 144/68
--- NOTE | 2017-03-11 03:08 | NUR ---
CONTINUE TO REST WELL AT THIS TIME WITH NO DISTRESS NOTED. C/L IN REACH AT BEDSIDE.
--- NOTE | 2017-03-11 03:48 | NUR ---
RN NOTE: PT RESTING QUIETLY WITH EYES CLOSED. IV IN RIGHT WRIST SL. DROPLET ISOLATION IN PLACE. WILL CONTINUE TO MONITOR FOR NEEDS.
[2017-03-11 04:00] VITALS: BP 130/71
[2017-03-11 06:35] LABS: BASOPHILS 0.1 % (0-2); EOSINOPHILS 3.5 % (0-7); HEMOGLOBIN 10.4 g/dL (12-16); IMMATURE GRANULOCYTES 0.5 % (0-5); LYMPHOCYTES 22.5 % (15-50); MCH 29.3 pg (26.0-34.0); MCHC 31.5 g/dL (31.0-37.0); MEAN PLATELET VOLUME 9.4 fL (7.4-10.4); NEUTROPHILS 62.4 % (40-80); PLATELET COUNT 250 10x3/uL (130-400); RBC 3.55 10x6/uL (4.00-5.40); RDW 13.4 % (11.5-14.5); WBC 7.4 10x3/uL (4.8-10.8)
[2017-03-11 06:44] LABS: INR 1.13 (0.85-1.17); PROTIME 14.4 SECONDS (11.6-15.0)
[2017-03-11 07:05] LABS: CALCIUM 9.2 mg/dL (8.5-10.1); CREATININE - SERUM 1.8 mg/dL (0.6-1.3); URIC ACID 7.7 mg/dL (2.6-7.2)
[2017-03-11 08:09] VITALS: BP 136/69
--- NOTE | 2017-03-11 08:33 | NUR ---
AM MEDS GIVEN WITH NO COMPLICATIONS. BS 122 NO INSULIN GIVEN PER SLIDING SCALE. PT RESTING COMFORTABLY.
--- NOTE | 2017-03-11 11:30 | NUR ---
PT BEEN TRANSPORTED TO IR. CONSENT FORMS FOR NEPHROSTOGRAM WITH TOTAL INTRAVENOUS ANESTHESIA SIGNED. PRE-OP MEDS GIVEN PEPCID AND 500ML NS.
--- NOTE | 2017-03-11 12:50 | NUR ---
PT BACK FROM IR. NO SEDATION USED DURING PROCEDURE. NEPHROSTOMY TUBE CHANGED. PT ARRIVED IN BED FROM IR.
--- NOTE | 2017-03-11 13:00 | NUR ---
NUTRITION F/U CHART REVIEWED. PT REMAINS IN ISOLATION. ADA DIET WITH ~50% INTAKE RECENT MEALS. NPO THIS AM FOR PROCEDURE. WILL CONTINUE TO PROVIDE DIET, MONTIOR INTAKE. RD FOLLOWING
--- NOTE | 2017-03-11 13:12 | NUR ---
BS 148. NO INSULIN GIVEN PER SLIDING SCALE. SET UP LUNCH TRAY. CALL LIGHT IN REACH. BED IN LOW POSITION.
[2017-03-11 16:06] VITALS: BP 134/71
--- NOTE | 2017-03-11 18:00 | NUR ---
OT NOTE : PT COMPLETED ADL TASKS WITH SET UP. PT COMPLETED BUE GROSS MOTOR AXS FOR INCREASED AX TOLERANCE. THANK YOU, VESNA ORTIZ/Husam
[2017-03-11 19:00] VITALS: BP 133/70
--- NOTE | 2017-03-11 20:30 | NUR ---
PATIENT RESTING IN BED WITH GUESTS AT BEDSIDE. ADMINISTERED MEDS PER ORDERS. PATIENT DENIES OTHER NEEDS AT THIS TIME. BED IN LOWEST POSITION AND CALL LIGHT WITHIN REACH. ENCOURAGED THE PATIENT TO CALL IF SHE HAS NEEDS.
[2017-03-12] VITALS: BP 150/80
[2017-03-12 06:45] LABS: BASOPHILS 0.2 % (0-2); EOSINOPHILS 2.6 % (0-7); HEMATOCRIT 32.2 % (36.0-48.0); HEMOGLOBIN 10.3 g/dL (12-16); IMMATURE GRANULOCYTES 0.7 % (0-5); LYMPHOCYTES 17.9 % (15-50); MCH 29.9 pg (26.0-34.0); MCV 93.3 fL (80.0-100.0); MEAN PLATELET VOLUME 9.9 fL (7.4-10.4); MONOCYTES 11.1 % (2-11); NEUTROPHILS 67.5 % (40-80); PLATELET COUNT 268 10x3/uL (130-400); RBC 3.45 10x6/uL (4.00-5.40); RDW 13.6 % (11.5-14.5); WBC 8.9 10x3/uL (4.8-10.8)
[2017-03-12 07:26] LABS: ANION GAP 17.6 mmol/L (8-16); CALCIUM 8.8 mg/dL (8.5-10.1); CARBON DIOXIDE 22.2 mmol/L (21.0-32.0); CREATININE - SERUM 2.1 mg/dL (0.6-1.3); MAGNESIUM - SERUM 1.9 mg/dL (1.8-2.4); POTASSIUM - SERUM 3.8 mmol/L (3.5-5.1)
[2017-03-12 08:58] VITALS: BP 129/71
--- NOTE | 2017-03-12 09:00 | NUR ---
ASSESSMENT PER FLOW SHEET.PT WITHOUT DISTRESS AT PRESENT.VALLES TO GRAVITY WITH YELLOW URINE IN BAG.NEPHROSTOMY TUBE FLUSHED, SITE WITHOUT DRAINAGE.GOOD RETURN IN NEPHROSTOMY BAG.RASH NOTED TO RIGHT SIDE/BACK.ALSO REDNESS NOTED UNDER BREAST AND ABDOMINAL FOLDS.ISOLATION MAINTAINED.FALL PREVENTION IN PLACE.
--- NOTE | 2017-03-12 09:47 | NUR ---
REFERRAL SENT FOR THE 2ND TIME TO [facility], SPOKE WITH JORGE LUIS
[2017-03-12 13:07] VITALS: BP 127/65
[2017-03-12 15:41] VITALS: BP 129/68
--- NOTE | 2017-03-12 18:22 | NUR ---
OT NOTE: PT COMPLETED GROOMING WITH SET UP. PT COMPLETED BUE STRENGTH EXERCISES FOR INCREASE I WITH BED MOBILITY. THANK YOU, VESNA ORTIZ/Husam
--- NOTE | 2017-03-12 19:45 | NUR ---
ASSISTED PATIENT ON AND OFF OF BEDPAN. PATIENT HAD A SMALL BM. PATIENT HAS GUESTS AT BEDSIDE AND DENIES OTHER NEEDS AT THIS TIME. BED IN LOWEST POSITION AND CALL LIGHT WITHIN REACH. ENCOURAGED THE PATIENT TO CALL IF SHE HAS NEEDS.
[2017-03-13] VITALS: BP 135/71
[2017-03-13 05:57] LABS: BASOPHILS 0.1 % (0-2); EOSINOPHILS 3.8 % (0-7); HEMATOCRIT 31.7 % (36.0-48.0); IMMATURE GRANULOCYTES 0.4 % (0-5); LYMPHOCYTES 25.2 % (15-50); MCH 29.2 pg (26.0-34.0); MCHC 31.5 g/dL (31.0-37.0); MCV 92.7 fL (80.0-100.0); MEAN PLATELET VOLUME 9.7 fL (7.4-10.4); MONOCYTES 11.9 % (2-11); NEUTROPHILS 58.6 % (40-80); PLATELET COUNT 264 10x3/uL (130-400); RBC 3.42 10x6/uL (4.00-5.40); RDW 13.7 % (11.5-14.5); WBC 7.6 10x3/uL (4.8-10.8)
[2017-03-13 06:26] LABS: ANION GAP 15.2 mmol/L (8-16); CALCIUM 8.6 mg/dL (8.5-10.1); CARBON DIOXIDE 23.9 mmol/L (21.0-32.0); PHOSPHOROUS 4.2 mg/dL (2.5-4.9); POTASSIUM - SERUM 4.1 mmol/L (3.5-5.1)
--- NOTE | 2017-03-13 07:00 | NUR ---
PT REC'D FROM [facility]. RESTING IN BED WITH EYES CLOSED. NO SIGNS OF DISTRESS. RESP EVEN AND UNLABORED. VALLES CATHETER DRAINING TO GRAVITY. NO URINE IN BAG CURRENTLY. NEPHROSTOMY TUBE DRAINING URINE TO GRAVITY. CLEAR AND YELLOW WITH SOME SEDIMENT. PIV TO R WRIST FREE OF REDNESS AND SWELLING. BED LOW, LARRY LIGHT IN REACH, DENIES NEEDS. CPOC.
[2017-03-13 08:36] VITALS: BP 132/82
--- NOTE | 2017-03-13 08:45 | NUR ---
MORNING MEDS PASSED AT THIS TIME. SON AT BEDSIDE. ASSISTED WITH COMMUNICATION THROUGH SIGN LANGUAGE. AAOX4. NO COMPLAINTS OF PAIN. SON ASSISTED WITH REPOSITIONING AND WAS ABLE TO VIEW DRESSING TO NEPHROSTOMY AND DRESSING COVERING SHINGLES. DRESSING TO SHINGLES REMOVED TO ALLOW IT TO DRY. BED LOW, CALL LIGHT IN REACH, DENIES NEED. CPOC.
--- NOTE | 2017-03-13 12:10 | NUR ---
CURRENT FSBS 242. 4 UNITS OF INSULIN ADMINISTERED PER SS.
[2017-03-13 12:15] VITALS: BP 124/69
--- NOTE | 2017-03-13 13:57 | NUR ---
RECEIVED A CALL FROM JORGE LUIS FROM [facility] AND STATED THAT THEY WOULD ACCEPT THE PATIENT TODAY. SON BHARGAVI CHARLES NOTIFIED PATIENT WILL BE DISCHARGED VIA EMS TO A MEDICARE BED
--- NOTE | 2017-03-13 14:07 | NUR ---
RESTING QUIETLY IN BED. NO NEEDS NOTED.
[2017-03-13] MEDS ORDERED: PEPCID20 MG PO (14:50)
[2017-03-13] MEDS ORDERED: NEPHRO-VITE RX1 TAB PO (14:51)
[2017-03-13] MEDS ORDERED: ZYLOPRIM100 MG PO (14:51)
--- NOTE | 2017-03-13 15:54 | NUR ---
OT NOTE: PT COMPLETED SIMPLE GROOMING WITH SET UP. PT COMPLETED BUE EXS FOR INCREASED STRENGTH WITH BED MOB AND TRANSFERS. PT COMPLETED BED MOB WITH PALMA Malcolm THANK YOU, VESNA ORTIZ/Husam
[2017-03-13 15:57] VITALS: BP 142/76
--- NOTE | 2017-03-13 19:35 | NUR ---
ASSISTED WITH TRANSFER TO [facility]. DC INSTRUCTIONS DISCUSSED WITH SON EARLIER TODAY. PIV TO R WRIST DC'D WITH CATHETER INTACT. ESCORTED OUT VIA [facility] BY EMS.
== END 2017-03-13 19:36 | DRG 699 ==
LOC: D.ER 13:48 → D.MS 18:36 → D.SDCHOLD 18:36 → OBSVTIME 18:38 → D.MS 20:28
PROVIDERS: Emergency Medicine; Family Medicine; General Practice; Internal Medicine; Internal Medicine Nephrology; Radiology Diagnostic Radiology; ADMIT Emergency Medicine
PROC: 0T9B70Z Drainage of Bladder with Drainage Device, Via Natural or Artificial Opening (ICD-10-PCS; principal; 2017-03-03)
PROC: 0T9330Z Drainage of Right Kidney Pelvis with Drainage Device, Percutaneous Approach (ICD-10-PCS; 2017-03-06)
PROC: 0T763DZ Dilation of Right Ureter with Intraluminal Device, Percutaneous Approach (ICD-10-PCS; 2017-03-06)
PROC: BT1D1ZZ Fluoroscopy of Right Kidney, Ureter and Bladder using Low Osmolar Contrast (ICD-10-PCS; 2017-03-06)
PROC: 0T25X0Z Change Drainage Device in Kidney, External Approach (ICD-10-PCS; 2017-03-11)
DX: Q62.39 Other obstructive defects of renal pelvis and ureter (principal); N39.0 Urinary tract infection, site not specified; I13.0 Hypertensive heart and chronic kidney disease with heart failure and stage 1 through stage 4 chronic kidney disease, or unspecified chronic kidney disease; N13.1 Hydronephrosis with ureteral stricture, not elsewhere classified; N17.9 Acute kidney failure, unspecified; E11.22 Type 2 diabetes mellitus with diabetic chronic kidney disease; E11.65 Type 2 diabetes mellitus with hyperglycemia; N18.9 Chronic kidney disease, unspecified; I50.9 Heart failure, unspecified; Z79.84 Long term (current) use of oral hypoglycemic drugs; F32.9 Major depressive disorder, single episode, unspecified; H91.3 Deaf nonspeaking, not elsewhere classified; E11.42 Type 2 diabetes mellitus with diabetic polyneuropathy; Z66 Do not resuscitate; R33.9 Retention of urine, unspecified; B02.9 Zoster without complications

== ENCOUNTER 2017-03-22 06:00 | Outpatient (CLI) | payer MEDICARE ==
[~2017-03-22 06:00] MED LIST: FUROSEMIDE20 MG PO; GLIPIZIDE10 MG PO; LOTENSIN20 MG PO; NEPHRO-VITE RX1 TAB PO; NORVASC5 MG PO; PEPCID20 MG PO; ZYLOPRIM100 MG PO
[2017-03-22 13:44] LABS: HEMATOCRIT 33.6 % (36.0-48.0); HEMOGLOBIN 11.1 g/dL (12-16); MCH 29.7 pg (26.0-34.0); MCV 89.8 fL (80.0-100.0); MEAN PLATELET VOLUME 9.7 fL (7.4-10.4); RBC 3.74 10x6/uL (4.00-5.40); WBC 8.3 10x3/uL (4.8-10.8)
[2017-03-22 13:59] LABS: CALCIUM 8.4 mg/dL (8.5-10.1); CARBON DIOXIDE 23.6 mmol/L (21.0-32.0); CREATININE - SERUM 2.2 mg/dL (0.6-1.3); POTASSIUM - SERUM 3.6 mmol/L (3.5-5.1)
--- NOTE | 2017-03-29 09:12 | OP ---
PATIENT NAME: PAULINA CHARLES MEDICAL RECORD: [id number] :43 LOCATION:[facility] ADMISSION DATE: SURGEON: CYRUS ESTRADA MD DATE OF OPERATION: 03/28/2017 SURGEON: Cyrus Estrada MD ANESTHESIA: TIVA by Layo Durham CRNA PREOPERATIVE DIAGNOSIS: Infected right ureteral stent. PROCEDURES: Cystoscopy and right ureteral stent removal. FINDINGS: Right ureteral stent. SPECIMENS: Right ureteral stent. BLOOD LOSS: None. 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 She had an antegrade right ureteral stent placed by interventional radiology as well as placement of a right nephrostomy tube. In the interim, her urine grew Enterococcus. She had the nephrostomy tube changed after having been given IV antibiotics. She comes now to have the right ureteral stent removed as it is contaminated with the Enterococcus. She is deaf and mute. Consent was obtained through her son who communicates with her through sign language. She is already on IV antibiotics on the floor and we did not give any further antibiotics here. She is not allergic to any medications. DESCRIPTION OF PROCEDURE: The patient was given sedation. She was placed in the dorsal lithotomy position and prepped and draped. A 21-Irish cystoscope was used for visualization. The bladder was inflamed, but no bladder tumors were seen. The stent was seen. Grasping forceps were used and the stent was entirely removed. The stent was sent to pathology for identification. The scope was then removed. We inserted a new 16-Irish silver-coated silicone Souza catheter and filled the balloon with 10 cc of sterile water. The patient was awakened and brought to the recovery room. From there, she will return to the floor. Plan is to continue on with IV antibiotics and treat the infection. Next week, I will proceed with right percutaneous nephrolithotomy to get rid of the infected kidney stones on the right side and also perform balloon dilation and incision of the right UPJ obstruction using the Acucise device. TRANSINT:[id number] Voice Confirmation ID: [id number] DOCUMENT ID: [id number] OPERATIVE REPORT [id number] CHARLESPAULINA Orlando CYRUS ESTRADA MD at 0912 CC: [id number] DICTATION DATE: 03/28/17 1352 WEIGHT INSPECTOR: 03/28/171957 PRE [place] [id number] [place] [id number]
== END 2017-03-22 23:59 | disposition home or self-care (01) ==
LOC: D.OPS 06:00
PROVIDERS: Anesthesiology
DX: T83.592A Infection and inflammatory reaction due to indwelling ureteral stent, initial encounter (principal); R53.2 Functional quadriplegia; N10 Acute pyelonephritis; Z01.810 Encounter for preprocedural cardiovascular examination; Z01.811 Encounter for preprocedural respiratory examination; Z01.812 Encounter for preprocedural laboratory examination

== ENCOUNTER 2017-03-23 19:32 | Inpatient (IN) | payer MEDICARE ==
[~2017-03-23] VITALS: Ht 167.6 cm; Wt 93.2 kg
--- NOTE | ~2017-03-23 | HEMODYNAMI ---
PATIENT:PAULINA CHARLES MEDICAL RECORD: [id number] : 41 LOCATION:[facility] D.2225 ADMISSION DATE: 03/23/17 Generatedon:03/26/201710:51 Patient name: PAULINA CHARLES Patient #: [id number] SSN: DO B: 1945 Date of study: 03/26/2017 Page: Of Hemodynamic Procedure Report Patient Data Patient Demographics Procedure consent was obtained First Name: PAULINA Gender: Female Last Name: ARACELI : 1945 Middle Initial: M Age: 71 year(s) Patient #: [id number] Race: Unknown Additional ID: [id number] Contact details [address]: [address] [place] [address] ROAD State: [place] City: [place] Zip code: [address] Admission Admission Data Admission Date: 03/23/2017 Admission Time: 21:36 Room #: D.2225 Procedure Procedure Types Cath Procedure Peripheral Cath Diagnostic Procedure Nephro Nephrostogram Thru Existing Procedure Description Procedure Date Procedure Date: 03/26/2017 Procedure Start Time: 10:21 Procedure Staff Name Function Jamey Villegas MD Performing Physician Susan Amos RT Scrub Cosme Rea RT Monitor Forerst Subramanian MD Additional personnel Procedure Data Cath Procedure Fluoroscopy Diagnostic fluoroscopy Total fluoroscopy Time: 3.7 time: 3.7 min min Diagnostic fluoroscopy Total fluoroscopy dose: 76 dose: 76 mGy mGy Contrast Material Contrast Material Type Amount (ml) Isovue 300 13 Hemodynamics Rest Heart Rate: 71 (bpm) Snapshots Pre Cath Intra NCS Post Cath Vital Signs Time Heart Resp SPO2 NIBP (mmHg) Rhythm Pain Sedation Rate (ipm) (%) Status Level (bpm) 10:04:29 80 21 99 132/59(100) NSR 0 (11) 10(A) , No pain 10:08:45 71 0 100 151/76(111) NSR 0 (11) 10(A) , No pain 10:13:06 68 23 100 124/54(76) NSR 0 (11) 10(A) , No pain 10:18:05 68 18 100 Measuring NSR 0 (11) 10(A) , No pain 10:18:15 69 100 143/66(107) NSR 0 (11) 10(A) , No pain 10:22:33 71 23 100 139/74(96) NSR 0 (11) 10(A) , No pain 10:26:47 66 10 100 123/60(85) NSR 0 (11) 10(A) , No pain 10:31:46 66 20 100 118/56(77) NSR 0 (11) 10(A) , No pain 10:36:02 65 21 100 112/60(80) NSR 0 (11) 10(A) , No pain 10:40:59 70 15 100 138/72(98) NSR 0 (11) 10(A) , No pain 10:45:15 76 11 99 150/74(132) NSR 0 (11) 10(A) , No pain 10:49:31 77 4 100 159/83(125) NSR 0 (11) 10(A) , No pain Procedure Log Time Note 9:52:35 Cosme Rea RT (R) (CV) sent for patient. Start room use. 9:52:43 Time tracking: Regular hours 9:52:50 Plan of Care:Hemodynamics will remain stable., Cardiac rhythm will remain stable., Comfort level will be maintained., Respiratory function will remain adequate., Patient/ family verbilizes understanding of procedure., Procedure tolerated without complication., Recovers from procedure without complications.. 9:53:21 Patient received from Med/Surg to IR Alert and oriented. Tansferred to table in Prone position. 9:53:22 Correct patient and procedure confirmed by team. 9:53:24 Signed procedure consent form obtained from patient. 9:53:25 ECG and BP/O2 sat monitors applied to patient. 9:53:26 Full Disclosure recording started 9:53:27 - 9:53:30 H&P Date Dictated: 03/26/2017 Within 30 days and on chart.. 9:53:30 Pre-procedure instructions explained to patient. 9:53:31 Pre-op teaching completed and patient verbalized understanding. 9:53:33 Family unavailable. 9:53:35 Patient NPO since Midnight. 9:53:53 SEE ANESTHESIA NOTE FOR PRE PROCEDURE TIVA 9:54:09 AL VENKATESH FROM ANESTHESIA HERE FOR TIVA 10:03:26 Vital chart was started 10:10:18 Right abdomen area was prepped with betadine and draped in sterile fashion 10:10:25 Alarms reviewed by R. N. 10:10:25 Sharps counted by scrub and verified by R.N. 10:13:17 Use device set IR Diagnostic 10:13:18 Sterile Angiographic Pack opened to sterile field. 10:13:19 Bag Decanter opened to sterile field. 10:18:52 --------ALL STOP TIME OUT------ 10:18:53 Physician arrived 10:18:54 Final Timeout: patient, procedure, and site verified with staff and physician. All members of the team are in agreement. 10:19:00 Right abdomen site verified by team. 10:19:09 Physical assessment completed. ASA score P 4 - A patient with severe systemic disease that is a constant threat to life as per Forrest Subramanian MD. 10:19:13 Sedation plan: TIVA Propofol 10:19:42 Baseline sample Acquired. 10:21:29 Procedure started. 10:21:38 Local anesthetic to Abdominal area with Lidocaine 1% by Jamey Villegas MD.INITIAL ACCESS ONLY 10:25:13 [facility] .035 145 glide wire opened to sterile field. 10:31:47 Terumo 4FR Straight 65CM glide catheter opened to sterile field. 10:34:49 STOPCOCK 3-WAY LARGE BORE opened to sterile field. 10:34:53 Abscession 8Fr drainage catheter opened to sterile field. 10:36:11 BAG, DRAINAGE EMPTY 600ML W/ZULEIKA opened to sterile field. 10:40:05 Procedure ended.(Physican Out) 10:40:39 Fluoroscopy time 03.70 minutes. 10:40:43 Fluoroscopy dose: 76 mGy 10:40:43 Flurop Dose total: 76 10:40:55 Contrast amount:Isovue 300 13ml. 10:41:02 Sharps counted by scrub and verified by R.N. 10:41:25 SEE ANESTHESIA NOTE FOR POST PROCEDURE TIVA 10:41:29 Insertion/operative site no bleeding no hematoma. 10:42:06 Post Abdominal area:stable 10:42:20 Post procedure instruction explained to patient.Patient verbalizes understanding. 10:42:22 Procedure and supply charges have been captured, reviewed, submitted an d are correct. 10:49:00 Report given to Med/Surg. 10:49:02 Patient transfered to Med/Surg with Bed. 10:51:17 Vital chart was stopped Device Usage Item Name Manufacture Quantity Catalog Hospital Part Current Minima l Lot# / Number Charge Number Stock Stock Serial# Code Sterile Cardinal 1 [id number] 5 Angiographic Health Pack Bag Decanter Microtek 1 [id number] 26479 [id number] 5 Medical Inc[employer] 1 [id number] [id number] 156150 5 [id number] ROADRUNNER .035 145 glide wire Terumo 4FR Terumo 1 [id number] 325883 869562 5 Straight 65CM glide catheter [facility] 1 [id number] [id number] 4006 [id number] 5 [id number] 3-WAY LARGE BORE Abscession Angiodynamics 1 [id number] 792185 250341 739677 5 8Fr drainage catheter BAG, [facility] 1 [id number] 858622 541578 5 DRAINAGE EMPTY 600ML W/ZULEIKA Signature Audit [place] Stage Time Signature Unsigned Intra-Procedure 03/26/2017 Cosme 10:51:14 AM Rona RT (R) (CV) Signatures Monitor : Cosme Signature : Rona RT Date : Time : [address] [address]
--- NOTE | ~2017-03-23 | HEMODYNAMI ---
PATIENT:PAULINA CHARLES MEDICAL RECORD: [id number] : 41 LOCATION:D.MS Torres2225 ADMISSION DATE: 03/23/17 Generatedon:04/02/201711:48 Patient name: PAULINA CHARLES Patient #: [id number] SSN: DO B: 1945 Date of study: 04/02/2017 Page: Of Hemodynamic Procedure Report Patient Data Patient Demographics Procedure consent was obtained First Name: PAULINA Gender: Female Last Name: ARACELI : 1945 Middle Initial: M Age: 71 year(s) Patient #: [id number] Race: Unknown Additional ID: [id number] Contact details Address: [address] [place] [address] ROAD State: [place] City: [place] Zip code: [address] Past Medical History Allergies: No known allergies Admission Admission Data Admission Date: 03/23/2017 Admission Time: 21:36 Room #: D.2225 Weight (lbs.): 205 Weight (kg.): 92.99 Procedure Procedure Types Cath Procedure Peripheral Cath Diagnostic Procedure Cath Peripheral Nephro Nephrostomy Tube Exchange Procedure Description Procedure Date Procedure Date: 04/02/2017 Procedure Start Time: 11:21 Procedure Staff Name Function Judd Walker MD Performing Physician Cosme Rea RT Scrub Francie Goldberg RN Nurse Malgorzata Scott RT Technical Sales Representatives Malgorzata Scott RT Monitor Forrest Subramanian MD Additional personnel Procedure Data Cath Procedure Fluoroscopy Diagnostic fluoroscopy Total fluoroscopy Time: 6 time: 6 min min Diagnostic fluoroscopy Total fluoroscopy dose: 172 dose: 172 mGy mGy Contrast Material Contrast Material Type Amount (ml) Isovue 300 25 Diagnostic catheters Device Type Used For End Catheter Placement Merit Impress KA 2 5Fr 40CM catheter SLIME introducer Hemodynamics Rest Heart Rate: 46 (bpm) Snapshots Pre Cath Intra NCS Post Cath Vital Signs Time Heart Resp SPO2 NIBP (mmHg) Rhythm Pain Sedation Rate (ipm) (%) Status Level (bpm) 11:02:30 90 6 95 Measuring NSR 0 (11) 10(A) , No pain 11:03:54 89 95 Time NSR 0 (11) 10(A) Exceeded , No pain 11:07:25 84 98 Aborted NSR 0 (11) 10(A) , No pain 11:12:24 86 98 Measuring NSR 0 (11) 10(A) , No pain 11:13:24 85 30 97 133/81(110) NSR 0 (11) 10(A) , No pain 11:17:40 101 27 96 131/82(109) NSR 0 (11) 10(A) , No pain 11:21:56 86 7 93 125/70(97) NSR 0 (11) 10(A) , No pain 11:26:10 86 52 91 113/66(90) NSR 0 (11) 10(A) , No pain 11:30:24 83 31 92 114/66(92) NSR 0 (11) 10(A) , No pain 11:34:34 85 23 92 108/67(85) NSR 0 (11) 10(A) , No pain 11:38:48 96 22 85 108/62(84) NSR 0 (11) 10(A) , No pain 11:42:59 85 11 94 127/71(87) NSR 0 (11) 10(A) , No pain 11:47:15 87 24 95 109/68(94) NSR 0 (11) 10(A) , No pain Procedure Log Time Note 10:12:29 Patient Weight : 205 lbs 10:40:49 Use device set IR Diagnostic 10:40:51 Sterile Angiographic Pack opened to sterile field. 10:40:52 Bag Decanter opened to sterile field. 10:59:51 Time tracking: Regular hours 11:00:13 Plan of Care:Hemodynamics will remain stable., Cardiac rhythm will remain stable., Comfort level will be maintained., Respiratory function will remain adequate., Patient/ family verbilizes understanding of procedure., Procedure tolerated without complication., Recovers from procedure without complications.. 11:00:22 Patient received from Med/Surg to IR Alert and oriented. Tansferred to table in Prone position. 11:00:28 Correct patient and procedure confirmed by team. 11:00:37 Signed procedure consent form obtained from guardian. 11:00:40 ECG and BP/O2 sat monitors applied to patient. 11:00:42 Vital chart was started 11:00:43 Baseline sample Acquired. 11:01:11 Full Disclosure recording started 11:01:12 - 11:01:20 H&P Date Dictated: 04/02/2017 Within 30 days and on chart.. 11:01:29 Family in patients room. 11:01:32 Patient NPO since Midnight. 11:01:43 Patient allergic to No known allergies 11:01:49 Is the patient allergic to Iodine/contrast media? No. 11:02:21 see anesthesia notes for monitoring of patient during procedure 11:02:38 IV patent on arrival in left wrist with 0.9% NaCl at [facility]. 11:02:56 Right abdomen area was prepped with chlora-prep and draped in sterile fashion 11:17:55 Physician arrived 11:17:56 --------ALL STOP TIME OUT------ 11:17:57 Final Timeout: patient, procedure, and site verified with staff and physician. All members of the team are in agreement. 11:19:31 BAG, DRAINAGE EMPTY 600ML W/ZULEIKA opened to sterile field. 11:19:32 Terumo 4FR Straight 65CM glide catheter opened to sterile field. 11:19:34 Ifbyphone [facility] .035 145 glide wire opened to sterile field. 11:19:34 STOPCOCK 3-WAY LARGE BORE opened to sterile field. 11:19:41 Terumo 4FR Straight 65CM glide catheter opened to sterile field. 11:20:25 Abscession 8Fr drainage catheter opened to sterile field. 11:20:55 Sedation plan: TIVA Propofol 11:21:02 Procedure started. 11:21:12 Local anesthetic to Lumbar area with Lidocaine 1% by Judd Walker MD.INITIAL ACCESS ONLY 11:27:41 A [employer] KA 2 5Fr 40CM catheter was advanced over the wire and used for . 11:37:12 Ifbyphone STEPHEN 180 guide wire opened to sterile field. 11:37:15 A SLIME introducer was advanced over the wire and used for . 11:37:17 SUTURE ETHILON 2-0 BLK MONO FS opened to sterile field. 11:38:20 8fr abscession cath placed in rt kidney 11:38:59 STOPCOCK, 1-WAY MALE ROTATE LL C opened to sterile field. 11:43:19 Procedure ended.(Physican Out) 11:43:39 Fluoroscopy time 06.00 minutes. 11:43:44 Fluoroscopy dose: 172 mGy 11:43:44 Flurop Dose total: 172 11:43:56 Contrast amount:Isovue 300 25ml. 11:48:07 Procedure and supply charges have been captured, reviewed, submitted an d are correct. 11:48:29 Vital chart was stopped Device Usage Item Name Manufacture Quantity Catalog Hospital Part Current Minima l Lot# / Number Charge Number Stock Stock Serial# Code Sterile Cardinal 1 [id number] 5 Angiographic Health Pack Bag Decanter Microtek 1 [id number] 70648 542779 5 [employer] BAG, [employer] 1 [id number] [id number] 606492 887764 5 DRAINAGE EMPTY 600ML W/ZULEIKA Terumo 4FR Terumo 1 CG412 904272 210739 5 Straight 65CM glide catheter [facility] 1 [id number] 099268 789204 5 [id number] ROADRUNNER .035 145 glide wire [facility] 1 [id number] 104403 4037 233328 5 [id number] 3-WAY LARGE BORE Abscession Angiodynamics 1 [id number] 106040 896397 559151 5 8Fr drainage catheter [facility] 1 [id number] 714531 920029 5 Impress KA 2 5Fr 40CM catheter [facility] 1 [id number] 943618 218292 [id number] [facility] 1 [id number] 107484 006251 5 introducer SUTURE Ethicon 1 [id number] 259716 736536 5 ETHILON 2-0 BLK MONO FS STOPCOCK, Ifbyphone [facility] 1 [id number] 343909 54589 709576 5 [id number] 1-WAY MALE ROTATE LL C Signature Audit [place] Stage Time Signature Unsigned Intra-Procedure 04/02/2017 Malgorzata Scott 11:48:27 AM RT(R) Signatures Monitor : Malgorzata Scott RT Signature : Date : Time : [facility] [address] [place] [address]
[~2017-03-23 19:32] MED LIST changes: -FUROSEMIDE20 MG PO; +LASIX40 MG PO
[2017-03-23 19:58] LABS: BASOPHILS 0.5 % (0-2); EOSINOPHILS 4.1 % (0-7); HEMOGLOBIN 10.6 g/dL (12-16); IMMATURE GRANULOCYTES 0.2 % (0-5); LYMPHOCYTES 24.1 % (15-50); MCH 29.1 pg (26.0-34.0); MCHC 32.1 g/dL (31.0-37.0); MCV 90.7 fL (80.0-100.0); MEAN PLATELET VOLUME 9.4 fL (7.4-10.4); MONOCYTES 8.8 % (2-11); NEUTROPHILS 62.3 % (40-80); PLATELET COUNT 258 10x3/uL (130-400); RBC 3.64 10x6/uL (4.00-5.40); WBC 6.3 10x3/uL (4.8-10.8)
[2017-03-23 20:12] LABS: ALBUMIN 2.5 g/dL (3.4-5.0); ANION GAP 15.9 mmol/L (8-16); BILIRUBIN - TOTAL 0.25 mg/dL (0.2-1.3); CALCIUM 8.7 mg/dL (8.5-10.1); CARBON DIOXIDE 23.6 mmol/L (21.0-32.0); CREATININE - SERUM 2.2 mg/dL (0.6-1.3); POTASSIUM - SERUM 3.5 mmol/L (3.5-5.1); PROTEIN - SERUM 7.8 g/dL (6.4-8.2)
[2017-03-23 20:39] LABS: APPEARANCE HAZY (CLEAR); COLOR YELLOW (YELLOW); LEUKOCYTE ESTERASE 1+ (NEGATIVE); NITRITE NEGATIVE (NEGATIVE); SPECIFIC GRAVITY 1.015 (1.005-1.020)
[2017-03-23 20:40] LABS: BILIRUBIN NEGATIVE (NEGATIVE); GLUCOSE NEGATIVE (NEGATIVE); KETONE NEGATIVE (NEGATIVE); PROTEIN TRACE mg/dL (NEGATIVE); UROBILINOGEN NORMAL (NORMAL)
[2017-03-23 20:41] LABS: EPITHELIAL CELLS 0-5 /hpf (0-5); RED CELLS - URINE 0-5 /hpf (0-5)
[2017-03-23 20:42] LABS: BACTERIA MODERATE /hpf (NONE SEEN)
--- NOTE | 2017-03-23 22:25 | NUR ---
RECEIVED REPORT FROM DARWIN SCHROEDER IN ER.
--- NOTE | 2017-03-23 22:36 | NUR ---
PT ARRIVED ON UNIT VIA [facility] ESCORTED BY ER STAFF AND FAMILY MEMBERS. TRANSFERRED TO BED. PT CLEANED AND PADS CHANGED DUE TO INCONTINENCE OF STOOL. PT HAS STAGE 2 PRESSURE ULCERS ON BILATERAL BUTTOCK CHEEKS. CLEANSED AND APPLIED ARIC'S, AND COVERED WITH MEPILEX HEART. CHANGED DRESSING ON RIGHT SIDE WITH OLD SHINGLES SCABS / SORES. PT HAS RIGHT NEPHROSTOMY TUBE. REMOVED OLD DRESSING, CLEANSED INSERTION SITE AND PLACED NEW GAUZE AND OPSITE DRESSING. PT HAS REDDNESS IN GLUTEAL FOLDS...APPLIED ARIC'S AND POWDER FOR COMFORT. IV FLUIDS STARTED PER ORDER. CALL LIGHT WITHIN REACH. BED ALARM ACTIVATED FOR SAFETY. WILL MONITOR CLOSELY FOR NEEDS.
[2017-03-23 23:39] VITALS: BP 144/64; BMI 31.7; BMI 38.8
[2017-03-24] MEDS ORDERED: MIRALAX17 GM PO (03:54)
[2017-03-24 04:00] VITALS: BP 142/76
[2017-03-24 06:46] LABS: BASOPHILS 0.3 % (0-2); EOSINOPHILS 4.7 % (0-7); HEMATOCRIT 31.9 % (36.0-48.0); HEMOGLOBIN 10.1 g/dL (12-16); IMMATURE GRANULOCYTES 0.2 % (0-5); LYMPHOCYTES 27.4 % (15-50); MCH 28.8 pg (26.0-34.0); MCHC 31.7 g/dL (31.0-37.0); MCV 90.9 fL (80.0-100.0); MEAN PLATELET VOLUME 9.9 fL (7.4-10.4); MONOCYTES 7.2 % (2-11); NEUTROPHILS 60.2 % (40-80); PLATELET COUNT 254 10x3/uL (130-400); RBC 3.51 10x6/uL (4.00-5.40); RDW 14.1 % (11.5-14.5); WBC 5.7 10x3/uL (4.8-10.8)
[2017-03-24 06:58] LABS: ANION GAP 13.9 mmol/L (8-16); CALCIUM 8.5 mg/dL (8.5-10.1); CARBON DIOXIDE 21.1 mmol/L (21.0-32.0); CREATININE - SERUM 1.7 mg/dL (0.6-1.3)
--- NOTE | 2017-03-24 07:54 | NUR ---
REPORT RECEIVED FROM VOCAL MUSIC INSTRUCTOR NURSE. CALL LIGHT IN REACH.
[2017-03-24 08:15] VITALS: BP 155/72
--- NOTE | 2017-03-24 09:03 | NUR ---
ASSESSMENT COMPLETED. SCDs TO BLE. CALL LIGHT IN REACH. WILL CONTINUE WITH PLAN OF CARE.
--- NOTE | 2017-03-24 11:59 | NUR ---
AM MEDS ADMINISTERED. INCONTINENT OF STOOL WHICH HAD MUCUS IN IT. BED BATH GIVEN AND LINENS CHANGED. BED ALARM ON. [facility] ON. [facility]
[2017-03-24 13:04] VITALS: BP 115/76
--- NOTE | 2017-03-24 13:20 | NUR ---
FAMILY AT BEDSIDE. NO NEEDS VOICED AT THIS TIME. CALL LIGHT IN REACH.
--- NOTE | 2017-03-24 15:30 | NUR ---
NEW BAG OF IV FLUIDS INITIATED. FAMILY IN ROOM. NO NEEDS VOICED AT THIS TIME. CALL LIGHT IN REACH
[2017-03-24 15:58] VITALS: BP 170/78
--- NOTE | 2017-03-24 17:10 | NUR ---
NO NEEDS VOICED AT THIS TIME. CALL LIGHT IN REACH.
--- NOTE | 2017-03-24 18:06 | NUR ---
NO CHANGES IN INITIAL ASSESSMENT. CALL LIGHT IN REACH. SCDs TO BLE, BED ALARM ON. WILL CONTINUE WITH PLAN OF CARE.
[2017-03-24 19:00] VITALS: BP 146/75
--- NOTE | 2017-03-24 19:15 | NUR ---
PT IN BED. SIGNS NO NEEDS. IV INFUSING TO LEFT WRIST, PATENT. CALL LIGHT AT SIDE. BED LOW. RECEIVED CARE FROM DAY NURSE.
--- NOTE | 2017-03-25 02:02 | NUR ---
PT IN BED WITH EYES CLOSED. VALLES IN PLACE. CALL LIGHT AT SIDE. SCD'S IN PLACE. IV INFUSING TO LEFT WRIST.
--- NOTE | 2017-03-25 02:26 | NUR ---
RN NOTE: PT RESTING QUIETLY IN SEMI NOLAND'S POSITION WITH EYES CLOSED AND EASY RESPIRATIONS. IV IN LEFT WRIST PATENT WITH NS INFUSING AT 125 ML / HR. WILL CONTINUE TO MONITOR FOR NEEDS. CALL LIGHT WITHIN REACH.
[2017-03-25 04:00] VITALS: BP 148/58
[2017-03-25 05:40] LABS: BASOPHILS 0.2 % (0-2); EOSINOPHILS 5.5 % (0-7); HEMATOCRIT 29.6 % (36.0-48.0); HEMOGLOBIN 9.4 g/dL (12-16); IMMATURE GRANULOCYTES 0.2 % (0-5); LYMPHOCYTES 29.7 % (15-50); MCH 29.1 pg (26.0-34.0); MCHC 31.8 g/dL (31.0-37.0); MCV 91.6 fL (80.0-100.0); MEAN PLATELET VOLUME 9.8 fL (7.4-10.4); MONOCYTES 7.4 % (2-11); PLATELET COUNT 232 10x3/uL (130-400); RBC 3.23 10x6/uL (4.00-5.40); RDW 14.2 % (11.5-14.5); WBC 5.7 10x3/uL (4.8-10.8)
[2017-03-25 05:52] LABS: CALCIUM 8.2 mg/dL (8.5-10.1); CARBON DIOXIDE 19.2 mmol/L (21.0-32.0); CREATININE - SERUM 1.4 mg/dL (0.6-1.3)
[2017-03-25 05:55] LABS: ANION GAP 14.8 mmol/L (8-16)
--- NOTE | 2017-03-25 07:30 | NUR ---
RECIEVED PT DURING WALKING ROUNDS, PT RESTING IN BED WITH NO VISABLE SIGNS OF PAIN OR DISCOMFORT AT THIS TIME. ASSESSMENT DONE PER FLOWSHEET. BED IN LOW POSITON AND CALL LIGHT WITHIN REACH. WILL CONTINUE TO MONITOR.
--- NOTE | 2017-03-25 09:00 | NUR ---
CALLED DR. ESTRADA'S OFFICE AT THIS TIME DUE TO PTS SON STATING THE PT WAS HAVING PROCEDURE TODAY, THERE ARE NO ORDERS FOR PROCEDURE IN COMPUTER AT THIST TIME. SPOKE WITH NURSE AND MESSAGE WAS RELAYED TO DR. ESTRADA, AWAITING FURTHER ORDERS TO BE RECIEVED AT THIS TIME.
[2017-03-25 09:26] VITALS: BP 165/77
[2017-03-25 12:47] VITALS: BP 159/74
[2017-03-25 16:55] VITALS: BP 139/64
--- NOTE | 2017-03-25 17:21 | NUR ---
Patient Name: PAULINA CHARLES Admission Status: ER Accout number: [id number] Admission Date: 03-23-2017 : 1945 Admission Diagnosis:ACUTE PYELONEPHRITIS Attending: VALERI YOUNG Current LOS: 2 Anticipated DC Date: 03-29-2017 Planned Disposition: Snf Care Fac [facility]CR Primary Insurance: [facility] Discharge Planning Comments: CM CALLED PATIENTS SON (BHARGAVI) REGARDING D/C NEEDS AND PLANS. PATIENT IS A RESIDENT OF [facility]. PATIENT WILL RETURN THERE AT DISCHARGE PER SON. PATIENTS PCP IS DR. GARCIA AND PHARMACY IS IN HOUSE. PATIENT IS BED RIDDEN PER SON BUT SITS UP AT TIMES. PATIENT WAS IN HOSPITAL WITHIN PAST MONTH FOR SAME PROBLEM PER SON. CM WILL CONTINUE TO FOLLOW PATIENT WITH D/C NEEDS AND PLANS. PCP DR. GARCIA [facility] IN HOUSE PHARMACY BHARGAVI (SUSANA) [phone] Transfer Car Operator Drier: Monica Falcon How many steps to enter\exit or inside your home? 0 0 * PCP DR. GARCIA 0 * Pharmacy IN HOUSE AT [facility] 0 * Preadmission Environment [facility] 0 * Facility Name [facility] 0 * ADLs Partial Dependent 0 * Partial ADLs (Assistance needed) Bathing Dressing Medication Management Toileting Transfers 0 * Other Equipment FACILITY HAS NEEDED EQUIPMENT 0 * List name and contact numbers for known caregivers / representatives who currently or will assist patient after discharge: BHARGAVI (SUSANA) [phone] 0 * Community resources currently utilized None 0 * Additional services required to return to the preadmission environment? Yes 0 * Can the patient safely return to the preadmission environment? Yes 0 * Has this patient been hospitalized within the prior 30 days at any hospital? Yes 0 Grand Total: 0
[2017-03-25 20:00] VITALS: BP 141/56
[2017-03-25 23:44] VITALS: BP 154/67
--- NOTE | 2017-03-26 00:47 | NUR ---
TURNED PATIENT FROM HER RIGHT SIDE TO HER LEFT SIDE.
[2017-03-26 04:00] VITALS: BP 137/66
[2017-03-26 06:21] LABS: INR 1.15 (0.85-1.17); PROTIME 14.6 SECONDS (11.6-15.0)
[2017-03-26 06:28] LABS: ALBUMIN 2.1 g/dL (3.4-5.0); BILIRUBIN - TOTAL 0.2 mg/dL (0.2-1.3); CALCIUM 8.3 mg/dL (8.5-10.1); CARBON DIOXIDE 19.9 mmol/L (21.0-32.0); CREATININE - SERUM 1.2 mg/dL (0.6-1.3); PROTEIN - SERUM 6.4 g/dL (6.4-8.2)
[2017-03-26 06:29] LABS: ANION GAP 15.1 mmol/L (8-16); BASOPHILS 0.2 % (0-2); HEMATOCRIT 31.1 % (36.0-48.0); HEMOGLOBIN 9.6 g/dL (12-16); IMMATURE GRANULOCYTES 0.7 % (0-5); LYMPHOCYTES 30.1 % (15-50); MCH 28.8 pg (26.0-34.0); MCHC 30.9 g/dL (31.0-37.0); MCV 93.4 fL (80.0-100.0); MEAN PLATELET VOLUME 10.5 fL (7.4-10.4); MONOCYTES 7.5 % (2-11); NEUTROPHILS 56.5 % (40-80); PLATELET COUNT 196 10x3/uL (130-400); RBC 3.33 10x6/uL (4.00-5.40); RDW 14.6 % (11.5-14.5); WBC 6.1 10x3/uL (4.8-10.8)
--- NOTE | 2017-03-26 08:00 | NUR ---
PT ASSESSMENT COMPLETE PT AWAKE AND ALERT DEAF PT WITH VALLES CATHETER NPO FOR NEPHROSTOMY EXCHANGE TODAY.
--- NOTE | 2017-03-26 08:54 | NUR ---
PATIENT IN MID NOLAND POSITION ALERT AND RESTING QUIETLY. NO SIGNS OF DISTRESS NOTED. SIDE RAILS UP X2. BED IN LOW POSITION. CALL LIGHT IN REACH.
[2017-03-26 09:33] VITALS: BP 154/72
[2017-03-26 12:51] VITALS: BP 163/76
[2017-03-26 16:49] VITALS: BP 173/82
[2017-03-26 20:00] VITALS: BP 138/59
--- NOTE | 2017-03-26 23:00 | NUR ---
THERE IS NOT ANY URINE IN THE VALLES CATHETER COLLECTION BAG. BLADDER SCANNER SHOWED 334ML.
--- NOTE | 2017-03-26 23:01 | NUR ---
UA AND CULTURE COLLECTED FROM NEPHROSTOMY TUBE.
--- NOTE | 2017-03-26 23:15 | NUR ---
D/C VALLES CATHETER. ATTEMPTED TO PUT IN A 16FR VALLES CATHETER, UNSUCCESSFUL.
[2017-03-26 23:21] LABS: APPEARANCE HAZY (CLEAR); BACTERIA FEW /hpf (NONE SEEN); BILIRUBIN NEGATIVE (NEGATIVE); COLOR YELLOW (YELLOW); EPITHELIAL CELLS RARE /hpf (0-5); GLUCOSE NEGATIVE (NEGATIVE); KETONE NEGATIVE (NEGATIVE); LEUKOCYTE ESTERASE 1+ (NEGATIVE); NITRITE NEGATIVE (NEGATIVE); PROTEIN TRACE mg/dL (NEGATIVE); RED CELLS - URINE 0-5 /hpf (0-5); UROBILINOGEN NORMAL (NORMAL)
--- NOTE | 2017-03-26 23:30 | NUR ---
DARWIN FELIX INSERTED VALLES CATHETER, STERILE TECHNIQUE MAINTAINED.
[2017-03-27] VITALS: BP 143/68
[2017-03-27 04:00] VITALS: BP 162/63
[2017-03-27 05:19] LABS: BASOPHILS 0.4 % (0-2); EOSINOPHILS 5.2 % (0-7); HEMATOCRIT 30.6 % (36.0-48.0); HEMOGLOBIN 9.7 g/dL (12-16); LYMPHOCYTES 28.4 % (15-50); MCHC 31.7 g/dL (31.0-37.0); MCV 91.3 fL (80.0-100.0); MEAN PLATELET VOLUME 9.7 fL (7.4-10.4); MONOCYTES 6.5 % (2-11); NEUTROPHILS 59.5 % (40-80); PLATELET COUNT 197 10x3/uL (130-400); RBC 3.35 10x6/uL (4.00-5.40); RDW 14.5 % (11.5-14.5); WBC 5.5 10x3/uL (4.8-10.8)
[2017-03-27 05:35] LABS: ALBUMIN 2.1 g/dL (3.4-5.0); BILIRUBIN - TOTAL 0.2 mg/dL (0.2-1.3); CALCIUM 8.4 mg/dL (8.5-10.1); CARBON DIOXIDE 20.3 mmol/L (21.0-32.0); CREATININE - SERUM 1.2 mg/dL (0.6-1.3); PROTEIN - SERUM 6.2 g/dL (6.4-8.2)
[2017-03-27 05:38] LABS: ANION GAP 13.5 mmol/L (8-16); POTASSIUM - SERUM 2.8 mmol/L (3.5-5.1)
--- NOTE | 2017-03-27 06:07 | NUR ---
FLUSHED WITH 10ML OF SALINE. ASPIRATED BLOOD RETURN.
[2017-03-27 08:38] VITALS: BP 125/78
[2017-03-27 10:56] LABS: PHOSPHOROUS 3.2 mg/dL (2.5-4.9)
[2017-03-27 11:00] LABS: MAGNESIUM - SERUM 1.4 mg/dL (1.8-2.4)
--- NOTE | 2017-03-27 12:46 | NUR ---
POTASSIUM RIDER CHANGED AT THIS TIME, PT EXPRESSED NO PAIN OR DISCOMFORT. BED IN LOW POSITION AND CALL LIGHT WITHIN REACH. WILL CONTINUE TO MONITOR.
[2017-03-27 12:47] VITALS: BP 146/61
[2017-03-27 16:24] VITALS: BP 140/62
[2017-03-27 20:00] VITALS: BP 149/66
--- NOTE | 2017-03-27 23:05 | NUR ---
REC'D LYING IN BED. ALERT AND ORIENTED X4. DENIED PAIN AT THIS TIME. DENIED FURTHER NEEDS AT THIS TIME. INSTRUCTED TO CALL IF NEEDED ANYTHING. WILL CONT TO MONITOR. NO DISTRESS NOTED. WILL ADMIN PM/AM MEDS PRESCRIBED. WILL BE NPO AFTER MIDNIGHT.
[2017-03-28] VITALS (7 sets, daily range): BP systolic 108–147; BP diastolic 54–87; Ht 167.6 cm; Wt 93.2 kg
--- NOTE | 2017-03-28 03:56 | NUR ---
EYES CLOSED RESPIRATIONS WITH EASE AND UNLABORED SR UP X2 CALL LIGHT WITHIN REACH.
[2017-03-28 04:30] LABS: BASOPHILS 0.2 % (0-2); EOSINOPHILS 5.9 % (0-7); HEMATOCRIT 33.4 % (36.0-48.0); HEMOGLOBIN 10.7 g/dL (12-16); LYMPHOCYTES 28.1 % (15-50); MCV 90.5 fL (80.0-100.0); MEAN PLATELET VOLUME 9.5 fL (7.4-10.4); MONOCYTES 6.8 % (2-11); PLATELET COUNT 191 10x3/uL (130-400); RBC 3.69 10x6/uL (4.00-5.40); RDW 14.7 % (11.5-14.5); WBC 5.9 10x3/uL (4.8-10.8)
[2017-03-28 04:40] LABS: ALBUMIN 2.3 g/dL (3.4-5.0); BILIRUBIN - TOTAL 0.32 mg/dL (0.2-1.3); CALCIUM 8.2 mg/dL (8.5-10.1); CARBON DIOXIDE 22.3 mmol/L (21.0-32.0); CREATININE - SERUM 1.5 mg/dL (0.6-1.3); PROTEIN - SERUM 6.9 g/dL (6.4-8.2)
[2017-03-28 04:41] LABS: ANION GAP 13.5 mmol/L (8-16); POTASSIUM - SERUM 2.8 mmol/L (3.5-5.1)
--- NOTE | 2017-03-28 06:34 | NUR ---
POTASSIUM WAS 2.8 THIS AM. FOLLOWED ELECTROLYTE PROTOCOL IS ON FIRST BAG OF POSTASSIUM NOW.
--- NOTE | 2017-03-28 07:21 | NUR ---
PATIENT IS RESTING QUIETLY IN BED. EYES ARE CLOSED. NO S/S OF DISTRESS NOTED. CALL LIGHT IN PATIENT'S REACH. WILL MONITOR PATIENT.
--- NOTE | 2017-03-28 08:06 | NUR ---
PATIENT RESTING IN BED. PATIENT IS MUTE AND DEAF. PATIENT COMMUNICATES BY WRITING ON A NOTEPAD. SCHEDULED MEDICATIONS GIVEN TO PATIENT. ASSESSMENT COMPLETED. SEE FLOWSHEET FOR ANY DETAILS. PATIENT IS NPO FOR A SCHEDULED CYSTOSCOPY WITH A STENT REMOVAL TODAY. PATIENT DENIES ANY NEEDS AT PRESENT TIME. CALL LIGHT IN PATIENT'S REACH. WILL MONITOR PATIENT.
[2017-03-28 11:07] LABS: MAGNESIUM - SERUM 1.2 mg/dL (1.8-2.4); PHOSPHOROUS 2.7 mg/dL (2.5-4.9)
--- NOTE | 2017-03-28 12:22 | NUR ---
PATIENT TRANSFERRED VIA BED TO THE OPERATING ROOM.
--- NOTE | 2017-03-28 14:25 | NUR ---
RECEIVED PATIENT BACK TO ROOM 2225 VIA BED FROM THE RECOVERY ROOM. DARWIN MCCLOUD WITH THE PATIENT. VSS. TEMP 98.5 OXYGEN SATURATION IS 97% ON ROOM AIR. PATIENT DENIES ANY NAUSEA OR PAIN AT PRESENT TIME. CALL LIGHT PLACED IN PATIENT'S REACH. WILL MONITOR PATIENT.
[2017-03-29] VITALS: BP 150/74
[2017-03-29 04:00] VITALS: BP 150/75
--- NOTE | 2017-03-29 05:04 | NUR ---
RESTING QUIETLY WITH EYES CLOSED. NO SIGNS OF DISTRESS NOTED. BED IN LOWEST POSITION, CALL LIGHT IN REACH. BED RAILS UP X'S 2.
[2017-03-29 06:11] LABS: BASOPHILS 0.1 % (0-2); EOSINOPHILS 4.6 % (0-7); HEMATOCRIT 32.1 % (36.0-48.0); HEMOGLOBIN 10.1 g/dL (12-16); IMMATURE GRANULOCYTES 0.3 % (0-5); LYMPHOCYTES 24.6 % (15-50); MCH 28.8 pg (26.0-34.0); MCHC 31.5 g/dL (31.0-37.0); MCV 91.5 fL (80.0-100.0); MEAN PLATELET VOLUME 9.7 fL (7.4-10.4); MONOCYTES 8.5 % (2-11); NEUTROPHILS 61.9 % (40-80); PLATELET COUNT 179 10x3/uL (130-400); RBC 3.51 10x6/uL (4.00-5.40); RDW 14.9 % (11.5-14.5); WBC 7.2 10x3/uL (4.8-10.8)
[2017-03-29 07:17] LABS: ALBUMIN 2.3 g/dL (3.4-5.0); ANION GAP 14.6 mmol/L (8-16); BILIRUBIN - TOTAL 0.35 mg/dL (0.2-1.3); CALCIUM 8.2 mg/dL (8.5-10.1); CARBON DIOXIDE 22.4 mmol/L (21.0-32.0); CREATININE - SERUM 1.6 mg/dL (0.6-1.3); PROTEIN - SERUM 6.8 g/dL (6.4-8.2)
--- NOTE | 2017-03-29 07:25 | NUR ---
PATIENT RECEIVED IN MID NOLAND POSITION RESTING WITH EYES CLOSED. RESPIRATIONS EVEN AND UNLABORED. SIDE RAILS UP X2. BED IN LOW POSITION. CALL LIGHT IN REACH.
[2017-03-29 07:58] VITALS: BP 150/75
--- NOTE | 2017-03-29 08:59 | NUR ---
CM REASSESSMENT NOTE: CLINICALS SENT TO JORGE LUIS AT [facility] FOR RE-AUTH.
--- NOTE | 2017-03-29 10:19 | NUR ---
PATIENT ALERT IN BED. NO SIGNS OF DISTRESS NOTED. SCHEDULED MEDICATION ADMINISTERED. FAMILY AT BEDSIDE. SIDE RAILS UP X2. BED IN LOW POSITION. CALL LIGHT IN REACH.
--- NOTE | 2017-03-29 11:02 | NUR ---
ACCU CHECK 145
[2017-03-29 12:24] VITALS: BP 136/76
--- NOTE | 2017-03-29 14:19 | NUR ---
PATIENT ALERT IN BED WATCHING TV. NO SIGNS OF DISTRESS NOTED. SIDE RAILS UP X2. BED IN LOW POSITION. CALL LIGHT IN REACH.
[2017-03-29 15:27] VITALS: BP 115/61
--- NOTE | 2017-03-29 18:07 | NUR ---
POTASSIUM REPLACED PER PROTOCOL. WELL TOLERATED. CALL LIGHT IN REACH.
--- NOTE | 2017-03-29 19:15 | NUR ---
RECEIVED REPORT FROM DAY NURSE. PT LYING IN BED WITH EYES CLOSED. RESP EVEN AND UNLABORED. CALL LIGHT AT SIDE. SCD'S IN PLACE. IV INFUSING TO LEFT WRIST PATENT. VALLES TO GRAVITY. RIGHT NEPHROSTOMY.
--- NOTE | 2017-03-29 19:15 | NUR ---
RECEIVED CARE FROM DAY NURSE. PT LYING IN BED WATCHING TV. SIGNS NO NEEDS AT THIS TIME. CALL LIGHT AT SIDE. IV INFUSING TO LEFT WRIST, PATENT.
[2017-03-29 20:00] VITALS: BP 142/80
--- NOTE | 2017-03-29 23:40 | NUR ---
PT SITTING UP IN BED. NO NEEDS SIGNED. CALL LIGHT AT SIDE. COMMUNICATION VIA WRITTEN WORD. IV INFUSING TO LEFT FA PATENT. VALLES DRAINING.
[2017-03-30] VITALS (7 sets, daily range): BP systolic 125–153; BP diastolic 62–89
--- NOTE | 2017-03-30 03:37 | NUR ---
ASSESSED, PT IS ASLEEP WITH EASY RESPIRATIONS AND NO DISTRESS NOTED. THE BED IS LOW, RAILS UP X'S 2 WITH THE CALL LIGHT AT HAND.
[2017-03-30 06:32] LABS: BASOPHILS 0.3 % (0-2); HEMATOCRIT 29.9 % (36.0-48.0); HEMOGLOBIN 9.4 g/dL (12-16); IMMATURE GRANULOCYTES 0.1 % (0-5); LYMPHOCYTES 21.1 % (15-50); MCHC 31.4 g/dL (31.0-37.0); MCV 92.3 fL (80.0-100.0); MEAN PLATELET VOLUME 10.2 fL (7.4-10.4); MONOCYTES 9.7 % (2-11); NEUTROPHILS 63.8 % (40-80); PLATELET COUNT 171 10x3/uL (130-400); RBC 3.24 10x6/uL (4.00-5.40); RDW 15.2 % (11.5-14.5); WBC 6.8 10x3/uL (4.8-10.8)
[2017-03-30 06:54] LABS: ALBUMIN 2.2 g/dL (3.4-5.0); ANION GAP 14.4 mmol/L (8-16); BILIRUBIN - TOTAL 0.34 mg/dL (0.2-1.3); CARBON DIOXIDE 22.9 mmol/L (21.0-32.0); CREATININE - SERUM 1.8 mg/dL (0.6-1.3); POTASSIUM - SERUM 3.3 mmol/L (3.5-5.1); PROTEIN - SERUM 6.6 g/dL (6.4-8.2)
--- NOTE | 2017-03-30 07:25 | NUR ---
PATIENT RECEIVED IN MID NOLAND POSITION ALERT AND RESTING QUIETLY. NO SIGNS OF DISTRESS NOTED. SIDE RAILS UP X2. BED IN LOW POSITION. CALL LIGHT IN REACH.
--- NOTE | 2017-03-30 08:40 | NUR ---
PATIENT IN LOW NOLAND POSITION RESTING QUIETLY WITH EYES CLOSED. WAKES EASY. SCHEDULED MEDICATION ADMINISTERED. SIDE RAILS UP X2. BED IN LOW POSITION. CALL LIGHT IN REACH.
--- NOTE | 2017-03-30 11:05 | NUR ---
PATIENT ALERT IN BED. NO SIGNS OF DISTRESS NOTED. ACCU CHECK 101. BED IN LOW POSITION. SIDE RAILS UP X2. CALL LIGHT IN REACH.
--- NOTE | 2017-03-30 16:20 | NUR ---
ACCU CHECK 96. NO INSULIN PER SLIDING SCALE.
--- NOTE | 2017-03-30 17:05 | NUR ---
ALERT IN BED EATING DINNER. TOLERATING WELL. BED IN LOW POSITION. CALL LIGHT IN REACH.
--- NOTE | 2017-03-30 17:54 | NUR ---
SCDS ON AT THIS TIME. USE EXPLAINED.
--- NOTE | 2017-03-30 23:44 | NUR ---
PT LYING IN BED WITH EYES CLOSED. RESP EVEN AND UNLABORED. CALL LIGHT AT SIDE. VALLES TO GRAVITY DRAINING CLEAR YELLOW URINE. NEPHROSTOMY TO RIGHT SIDE.
--- NOTE | 2017-03-31 03:24 | NUR ---
PATIENT RESTING WITH EYES CLOSED AND NO VISIBLE SIGNS OF DISTRESS. BED IN LOWEST POSITION AND CALL LIGHT WITHIN REACH.
[2017-03-31 04:06] VITALS: BP 155/75
--- NOTE | 2017-03-31 04:10 | NUR ---
PT LYING IN BED WITH EYES CLOSED. RESP EVEN AND UNLABORED. IV INFUSING TO PATENT IV.
--- NOTE | 2017-03-31 07:45 | NUR ---
PATIENT RECEIVED ALERT IN MID NOLAND POSITION. NO SIGNS OF DISTRESS NOTED. BED IN LOW POSITION. SIDE RAILS UP X2. CALL LIGHT IN REACH.
[2017-03-31 08:31] LABS: ANION GAP 15.6 mmol/L (8-16); CALCIUM 8.1 mg/dL (8.5-10.1); CARBON DIOXIDE 20.8 mmol/L (21.0-32.0); CREATININE - SERUM 1.8 mg/dL (0.6-1.3); POTASSIUM - SERUM 3.4 mmol/L (3.5-5.1)
--- NOTE | 2017-03-31 08:48 | NUR ---
PATIENT REPOSITIONED IN BED. WELL TOLERATED. SCHEDULED MEDICATION ADMINISTERED. SIDE RAILS UP X2. BED IN LOW POSITION. CALL LIGHT IN REACH.
[2017-03-31 10:00] VITALS: BP 169/78
--- NOTE | 2017-03-31 12:18 | NUR ---
POTASSIUM RESULT 3.3 PATIENT REFUSES TO TAKE ORAL POTASSIUM. KCL RIDER INITIATED PER PROTOCOL.
[2017-03-31 12:20] VITALS: BP 131/80
[2017-03-31 16:06] VITALS: BP 185/102
[2017-03-31 16:11] VITALS: BP 150/83
--- NOTE | 2017-03-31 16:13 | NUR ---
ACCU CHECK 196. VISITORS AT BEDSIDE. BED IN LOW POSITION. SIDE RAILS UP X2. BED IN LOW POSITION. CALL LIGHT IN REACH.
--- NOTE | 2017-03-31 19:15 | NUR ---
RECEIVED CARE FROM DAY NURSE. PT SITTING UP IN BED. SIGNS NO NEEDS. CALL LIGHT AT SIDE. IV INFUSING TO PATENT LEFT WRIST IV. VALLES TO GRAVITY. RIGHT NEPHROSTOMY.
[2017-03-31 20:00] VITALS: BP 171/82
[2017-04-01] VITALS: BP 140/74
--- NOTE | 2017-04-01 02:17 | NUR ---
PATIENT RESTING IN BED WITH EYES CLOSED AND NO VISIBLE SIGNS OF DISTRESS. BED IN LOWEST POSITION AND CALL LIGHT WITHIN REACH.
--- NOTE | 2017-04-01 03:20 | NUR ---
PT LYING IN BED WITH EYES CLOSED. RESP EVEN AND UNLABORED. CALL LIGHT AT SIDE. IV INFUSING PER ORDER.
[2017-04-01 04:00] VITALS: BP 152/70
[2017-04-01 04:51] LABS: BASOPHILS 0.3 % (0-2); EOSINOPHILS 5.1 % (0-7); HEMATOCRIT 29.1 % (36.0-48.0); HEMOGLOBIN 9.1 g/dL (12-16); IMMATURE GRANULOCYTES 0.2 % (0-5); LYMPHOCYTES 23.9 % (15-50); MCH 29.3 pg (26.0-34.0); MCHC 31.3 g/dL (31.0-37.0); MCV 93.6 fL (80.0-100.0); MEAN PLATELET VOLUME 9.9 fL (7.4-10.4); MONOCYTES 6.7 % (2-11); NEUTROPHILS 63.8 % (40-80); PLATELET COUNT 150 10x3/uL (130-400); RBC 3.11 10x6/uL (4.00-5.40); RDW 15.4 % (11.5-14.5); WBC 6.3 10x3/uL (4.8-10.8)
[2017-04-01 04:59] LABS: ANION GAP 14.7 mmol/L (8-16); CALCIUM 7.8 mg/dL (8.5-10.1); CARBON DIOXIDE 21.9 mmol/L (21.0-32.0); CREATININE - SERUM 1.7 mg/dL (0.6-1.3); POTASSIUM - SERUM 3.6 mmol/L (3.5-5.1)
--- NOTE | 2017-04-01 07:20 | NUR ---
REPORT REACEIVED FORM NURSE. CALL LIGHT IN REACH.
[2017-04-01 08:31] VITALS: BP 156/81
--- NOTE | 2017-04-01 09:47 | NUR ---
AM MEDS ADMINISTERED PER DARWIN LARES. REFUSES SCDs. CALL LIGHT IN REACH.
--- NOTE | 2017-04-01 10:02 | NUR ---
AWAKE AND ALERT. ORIENTED X3. SON AT BEDSIDE TO TRANSLATE. BILIARY DRAIN IN PLACE WITH SEROUS DRAINAGE. DENIES NEEDS.
--- NOTE | 2017-04-01 10:17 | NUR ---
IV SL'D PER DR. FLORES ORDER. REFUSES SCDs. BEDBATH PER PRODUCTION SUPERVISOR. ALARM ON. SON AT BEDSIDE. IV TUBING CHANGED PER HOSPITAL POLICY. CALL LIGHT IN REACH. WILL CONITNUE WITH PLAN OF CARE.
[2017-04-01 12:28] VITALS: BP 154/85
--- NOTE | 2017-04-01 12:34 | NUR ---
AMP IVPB. FSBS 77 SO NO COVERAGE REQUIRED. CALL LIGHT IN REACH.
--- NOTE | 2017-04-01 13:09 | NUR ---
NUTRITION F/U CHART REVIEWED. PT CURRENTLY NPO. TOLERATING REG DIET PRIOR TO NPO STATUS. WILL PROVIDE DIET WHEN RESUMED, MONITOR PO INTAKE. RD FOLLOWING
--- NOTE | 2017-04-01 14:50 | NUR ---
DENIES NEEDS AT THIS TIME. CALL LIGHT IN REACH.
--- NOTE | 2017-04-01 16:30 | NUR ---
RESTING WITH EYES CLOSED. RESP EVEN AND UNLABORED. CALL LIGHT IN REACH.
[2017-04-01 16:38] VITALS: BP 154/81
--- NOTE | 2017-04-01 18:57 | NUR ---
NO CHANGES IN INITIAL ASSESSMENT. CALL LIGHT IN REACH. WILL CONTINUE WITH PLAN OF CARE.
[2017-04-01 20:00] VITALS: BP 145/77
--- NOTE | 2017-04-01 22:13 | NUR ---
REC'D LYING IN BED. ALERT AND ORIENTED X4. DENIED PAIN AT THIS TIME. DENIED NEEDS AT THIS TIME. INSTRUCTED TO CALL IF NEEDED ANYTHING VERBALIZED UNDERSTANDING. WILL ADMIN PM/AM MEDS PRESECRIBED. IS TO HAVE CANDIE IN THE AM, TOLD BY VALERIA CANDELARIA THAT SHE WOULD GET THE CONSENTS DUE TO HER NOT WANTING TO SIGN UNLESS SON IS IN THE ROOM WITH. WILL CONT TO MONITOR. BED LOW, LOCKED, CALL LIGHT IN REACH, ALARM ON.
--- NOTE | 2017-04-02 03:42 | NUR ---
PATIENT RESTING WITH EYES CLOSED AND NO VISIBLE SIGNS OF DISTRESS. BED IN LOWEST POSITION AND CALL LIGHT WITHIN REACH.
[2017-04-02 04:00] VITALS: BP 132/69
[2017-04-02 07:09] LABS: BASOPHILS 0.3 % (0-2); EOSINOPHILS 4.6 % (0-7); HEMATOCRIT 29.9 % (36.0-48.0); HEMOGLOBIN 9.2 g/dL (12-16); IMMATURE GRANULOCYTES 0.1 % (0-5); LYMPHOCYTES 20.8 % (15-50); MCH 28.8 pg (26.0-34.0); MCHC 30.8 g/dL (31.0-37.0); MCV 93.4 fL (80.0-100.0); MEAN PLATELET VOLUME 10.6 fL (7.4-10.4); NEUTROPHILS 66.2 % (40-80); PLATELET COUNT 171 10x3/uL (130-400); RDW 15.6 % (11.5-14.5); WBC 7.8 10x3/uL (4.8-10.8)
[2017-04-02 07:12] LABS: APTT 35.9 SECONDS (22.8-39.4); INR 1.15 (0.85-1.17); PROTIME 14.6 SECONDS (11.6-15.0)
--- NOTE | 2017-04-02 07:15 | NUR ---
REPORT RECEIVED FROM REFRACTORY TECHNICIAN NURSE. CALL LIGHT IN REACH.
[2017-04-02 07:22] LABS: ANION GAP 12.9 mmol/L (8-16); CALCIUM 8.2 mg/dL (8.5-10.1); CARBON DIOXIDE 21.6 mmol/L (21.0-32.0); CREATININE - SERUM 1.6 mg/dL (0.6-1.3); POTASSIUM - SERUM 3.5 mmol/L (3.5-5.1)
--- NOTE | 2017-04-02 08:20 | NUR ---
ASSESSMENT COMPLETED. NPO. CALL LIGHT IN REACH. WILL CONTINUE WITH PLAN OF CARE.
[2017-04-02 08:50] VITALS: BP 158/84
--- NOTE | 2017-04-02 10:34 | NUR ---
PREMEDS OF PEPCID AND REGLAN GIVEN PO WITH SIP OF WATER. SON AT BEDSIDE. DENIES ANY NEEDS AT THIS TIME. OFF FLOOR TO SPECIALS VIA BED.
--- NOTE | 2017-04-02 10:45 | NUR ---
TO IR VIA BED
--- NOTE | 2017-04-02 12:50 | NUR ---
DENIES NEEDS AT THIS TIME. CALL LIGHT IN REACH.
--- NOTE | 2017-04-02 14:50 | NUR ---
NO JUAQUINER NPO. SURGERY CANCELLED.
[2017-04-02 16:21] VITALS: BP 165/89
[2017-04-02 20:00] VITALS: BP 130/78
[2017-04-03] VITALS: BP 148/70
[2017-04-03 04:00] VITALS: BP 133/68
--- NOTE | 2017-04-03 04:54 | NUR ---
PATIENT RESTING WITH EYES CLOSED AND NO VISIBLE SIGNS OF DISTRESS. BED IN LOWEST POSITION AND CALL LIGHT WITHIN REACH.
[2017-04-03 05:00] VITALS: BP 149/68
[2017-04-03 05:36] LABS: BASOPHILS 0.4 % (0-2); EOSINOPHILS 3.7 % (0-7); HEMATOCRIT 29.5 % (36.0-48.0); HEMOGLOBIN 9.1 g/dL (12-16); IMMATURE GRANULOCYTES 0.1 % (0-5); LYMPHOCYTES 24.6 % (15-50); MCH 28.5 pg (26.0-34.0); MCHC 30.8 g/dL (31.0-37.0); MCV 92.5 fL (80.0-100.0); MEAN PLATELET VOLUME 10.4 fL (7.4-10.4); MONOCYTES 7.8 % (2-11); NEUTROPHILS 63.4 % (40-80); PLATELET COUNT 165 10x3/uL (130-400); RBC 3.19 10x6/uL (4.00-5.40); RDW 15.4 % (11.5-14.5); WBC 7.4 10x3/uL (4.8-10.8)
[2017-04-03 06:07] LABS: ANION GAP 15.8 mmol/L (8-16); CALCIUM 8.6 mg/dL (8.5-10.1); CARBON DIOXIDE 19.4 mmol/L (21.0-32.0); CREATININE - SERUM 1.5 mg/dL (0.6-1.3); PHOSPHOROUS 3.2 mg/dL (2.5-4.9); POTASSIUM - SERUM 3.2 mmol/L (3.5-5.1)
--- NOTE | 2017-04-03 07:25 | NUR ---
REPORT RECEIVED FROM DIRECTOR OF OPERATIONS HOME HEALTH NURSE. CALL LIGHT IN REACH.
[2017-04-03 08:19] VITALS: BP 120/62
--- NOTE | 2017-04-03 09:00 | NUR ---
ASSESSMENT COMPLETED. CALL LIGHT IN REACH. REFUSES SCDs. WILL CONTINUE WITH PLAN OF CARE.
--- NOTE | 2017-04-03 10:37 | NUR ---
PATIENT IN MID NOLAND POSITION RESTING WITH EYES CLOSED. RESPIRATIONS EVEN AND UNLABORED. SIDE RAILS UP X2. BED IN LOW POSITION. CALL LIGHT IN REACH.
--- NOTE | 2017-04-03 11:03 | NUR ---
AM MEDS ADMINISTERED. FSBS 134 SO NO COVERAGE REQUIRED. SON AT BEDSIDE. CALL LIGHT IN REACH.
--- NOTE | 2017-04-03 13:50 | NUR ---
NO NEEDS V OICED AT THIS TIME. CALL LIGHT IN REACH.
--- NOTE | 2017-04-03 15:50 | NUR ---
RESTING WITH EYES CLOSED. RESP EVEM AMD UNLABORED. CALL LIGHT IN REACH.
--- NOTE | 2017-04-03 16:58 | NUR ---
FSBS 120 SO NO COVERAGE REQUIRED. AFTERNOON MEDS ADMINISTERED. CALL LIGHT IN REACH.
--- NOTE | 2017-04-03 18:20 | NUR ---
NO CHANGES IN INITIAL ASSESSMENT. CALL LIGHT IN REACH. WILL CONTINUE WITH PLAN OF CARE.
[2017-04-03 20:00] VITALS: BP 144/75
[2017-04-04] VITALS (8 sets, daily range): BP systolic 141–167; BP diastolic 52–81
[2017-04-04 05:10] LABS: BASOPHILS 0.3 % (0-2); EOSINOPHILS 6.9 % (0-7); HEMOGLOBIN 8.5 g/dL (12-16); LYMPHOCYTES 29.4 % (15-50); MCH 29.1 pg (26.0-34.0); MCHC 31.5 g/dL (31.0-37.0); MCV 92.5 fL (80.0-100.0); MEAN PLATELET VOLUME 10.2 fL (7.4-10.4); MONOCYTES 9.3 % (2-11); NEUTROPHILS 54.1 % (40-80); PLATELET COUNT 152 10x3/uL (130-400); RBC 2.92 10x6/uL (4.00-5.40); RDW 15.4 % (11.5-14.5); WBC 6.2 10x3/uL (4.8-10.8)
[2017-04-04 05:28] LABS: ANION GAP 13.1 mmol/L (8-16); CALCIUM 8.4 mg/dL (8.5-10.1); CREATININE - SERUM 1.6 mg/dL (0.6-1.3); POTASSIUM - SERUM 3.1 mmol/L (3.5-5.1)
--- NOTE | 2017-04-04 07:30 | NUR ---
A&O, DENIES NEEDS, INFORMED OF SURGERY TODAY, SON AT BEDSIDE, CALL LIGHTIN REACH, BED LOWEST POSITION, WILL CONTINUE TO MONITOR
--- NOTE | 2017-04-04 19:00 | NUR ---
REPORT RECEIVED AND CARE OF PT ASSUMED. PT LYING IN SUPINE POSITION WITH EYES CLOSED AND UNLABORED BREATHING. IV IN LEFT FA PATENT WITH D5W INFUSING AT 40 ML /HR. VALLES CATHETER DRAINING TO GRAVITY WITH BLOODY DRAINAGE IN COLLECTION BAG. NEPHROSTOMY TUBE ON RIGHT SIDE WITH NO DRAINAGE IN COLLECTION BAG. DRESSING ON BACK CLEAN AND DRY. BUTTOCKS WITH SCABS / SORES / REDNESS. WILL MONITOR CLOSELY FOR NEEDS. CALL LIGHT WITHIN REACH.
--- NOTE | 2017-04-04 21:22 | NUR ---
HS MEDICATIONS GIVEN. FSBS 307 THIS CHECK REQUIRING COVERAGE WITH 8 UNITS OF INSULIN PER SLIDING SCALE.
--- NOTE | 2017-04-04 21:30 | NUR ---
HS SNACK OF APPLESAUCE AND VANILLA WAFERS GIVEN TO PT. WILL CONTINUE TO MONITOR FOR NEEDS. TURNED TO LEFT SIDE PROPPED WITH PILLOW.
[2017-04-05] VITALS: BP 115/62
--- NOTE | 2017-04-05 00:05 | NUR ---
TURNED PER TURN SCHEDULE. DRESSING ON BACK CLEAN AND DRY.
--- NOTE | 2017-04-05 02:12 | NUR ---
TURNED TO RIGHT SIDE WITH PILLOW SUPPORT. ARIC'S PASTE APPLIED TO REDDENED / SCABBED AREA ON BUTTOCKS.
[2017-04-05 04:00] VITALS: BP 122/49
[2017-04-05 05:50] LABS: BASOPHILS 0.2 % (0-2); EOSINOPHILS 3.5 % (0-7); HEMATOCRIT 28.4 % (36.0-48.0); IMMATURE GRANULOCYTES 0.2 % (0-5); LYMPHOCYTES 23.3 % (15-50); MCH 29.3 pg (26.0-34.0); MCHC 31.7 g/dL (31.0-37.0); MCV 92.5 fL (80.0-100.0); MEAN PLATELET VOLUME 10.2 fL (7.4-10.4); NEUTROPHILS 62.8 % (40-80); PLATELET COUNT 156 10x3/uL (130-400); RBC 3.07 10x6/uL (4.00-5.40); RDW 15.6 % (11.5-14.5); WBC 6.2 10x3/uL (4.8-10.8)
[2017-04-05 06:05] LABS: ANION GAP 12.9 mmol/L (8-16); CALCIUM 7.8 mg/dL (8.5-10.1); CARBON DIOXIDE 21.6 mmol/L (21.0-32.0); CREATININE - SERUM 1.8 mg/dL (0.6-1.3); PHOSPHOROUS 3.6 mg/dL (2.5-4.9); POTASSIUM - SERUM 3.5 mmol/L (3.5-5.1)
--- NOTE | 2017-04-05 07:30 | NUR ---
PT ASSESSMENT COMPLETE AWAKE AND ALERT ORIENTED X 3 DEAF AND MUTE HOWEVER COMMUNICATES WELL WITH WRITING AND READING. VALLES PATENT TO BLOODY URINE AND RT NEPHROSTOMY WITH NO OUTPUT NOTED DRESSING IN TACT
[2017-04-05 08:32] VITALS: BP 130/74
--- NOTE | 2017-04-05 11:00 | NUR ---
NO DISTRESS NTOED SON AT BEDSIDE. CALL LIGHT IN REACH SIDE RAILS UP STILL NO OUTPUT FROM NEPHROSTOMY
[2017-04-05 12:12] VITALS: BP 127/64
--- NOTE | 2017-04-05 12:52 | NUR ---
NUTRITION F/U CHART REVIEWED. PT VISIT DURING LUNCH. PT INDICATES SHE IS EATING GOOD. SIGNALS THUMBS UP! WILL CONTINUE TO PROVIDE DIET, MONITOR PO INTAKE. RD FOLLOWING
--- NOTE | 2017-04-05 14:04 | NUR ---
RESTING QUIETLY IN BED. DENIES NEEDS. REENA PATENT WITH DARK BROWNISH URINE.
[2017-04-05 16:04] VITALS: BP 128/67
--- NOTE | 2017-04-05 18:00 | NUR ---
PT RESTING IN BED WITH NO DISTRESS NOTED CALL LIGHT IN REACH SIDE RAILS UP X 3
--- NOTE | 2017-04-05 19:00 | NUR ---
REPORT RECEIVED AND CARE OF PT ASSUMED. PT LYING IN SEMI NOLAND'S POSITION WITH EYES CLOSED. IV IN LEFT FA PATENT WITH D5W INFUSING AT 30 ML / HR. RIGHT NEPHROSTOMY DRAINING TO GRAVITY WITH NO DRAINAGE IN COLLECTION BAG. VALLES CATHETER DRAINING TO GRAVITY WITH BLOOD TINGED URINE IN COLLECTION BAG. WILL MONITOR CLOSELY FOR NEEDS.
[2017-04-05 20:00] VITALS: BP 146/70
--- NOTE | 2017-04-05 20:15 | NUR ---
PT TURNED PER SCHEDULE.
--- NOTE | 2017-04-05 21:52 | NUR ---
HS MEDICATIONS GIVEN. FSBS 109 THIS CHECK REQUIRING NO COVERAGE PER SLIDING SCALE.
--- NOTE | 2017-04-05 22:30 | NUR ---
PT TURNED PER TURN SCHEDULE. CLEANSED ABDOMINAL FOLD AREA AND APPLIED NYSTATIN POWDER.
[2017-04-06] VITALS (13 sets, daily range): BP systolic 124–161; BP diastolic 58–81
--- NOTE | 2017-04-06 01:32 | NUR ---
PT RESTING QUIETLY AT THIS TIME WITH EYES CLOSED AND UNLABORED BREATHING. WILL CONTINUE TO MONITOR FOR NEEDS.
[2017-04-06 06:05] LABS: BASOPHILS 0.4 % (0-2); EOSINOPHILS 3.8 % (0-7); HEMOGLOBIN 8.4 g/dL (12-16); IMMATURE GRANULOCYTES 0.2 % (0-5); MCH 28.9 pg (26.0-34.0); MCHC 31.1 g/dL (31.0-37.0); MCV 92.8 fL (80.0-100.0); MEAN PLATELET VOLUME 10.3 fL (7.4-10.4); MONOCYTES 9.2 % (2-11); NEUTROPHILS 58.4 % (40-80); PLATELET COUNT 170 10x3/uL (130-400); RBC 2.91 10x6/uL (4.00-5.40); RDW 15.7 % (11.5-14.5); WBC 5.3 10x3/uL (4.8-10.8)
[2017-04-06 06:20] LABS: CALCIUM 8.1 mg/dL (8.5-10.1); CARBON DIOXIDE 21.6 mmol/L (21.0-32.0); CREATININE - SERUM 1.7 mg/dL (0.6-1.3); POTASSIUM - SERUM 3.6 mmol/L (3.5-5.1)
--- NOTE | 2017-04-06 06:30 | NUR ---
FSBS 64 THIS AM. GAVE ORANGE JUICE TO PT AND WROTE MESSAGE TELLING HER WHAT HER SUGAR LEVEL WAS. HELD GLIPIZIDE SCHEDULED FOR BEFORE BREAKFAST.
--- NOTE | 2017-04-06 18:26 | NUR ---
RESTING QUIETLY IN BED ON RIGHT SIDE. WANTING DOOR CLOSE. DENIES ANY FURTHER NEEDS AT THIS TIME.
--- NOTE | 2017-04-06 19:00 | NUR ---
REPORT RECEIVED AND CARE OF PT ASSUMED. PT LYING IN HIGH NOLAND'S POSITION WATCHING TV. IV OUT AT THIS TIME...WILL RE-SITE. VALLES CATHETER DRAINING TO GRAVITY WITH DARK URINE IN COLLECTION BAG. WILL MONITOR CLOSLEY FOR NEEDS.
--- NOTE | 2017-04-06 20:10 | NUR ---
IV RE-SITED TO LEFT UPPER ARM BY DARWIN HEWITT. IV FLUIDS RE-STARTED PER ORDER. WILL CONTINUE TO MONITOR FOR NEEDS.
--- NOTE | 2017-04-06 20:18 | NUR ---
HS MEDICATIONS GIVEN. WILL CONTINUE TO MONITOR FOR NEEDS.
--- NOTE | 2017-04-06 21:00 | NUR ---
SPOKE WITH SON WHO WANTED TO MAKE SURE WE KNEW THAT PT WAS TO RETURN TO [facility] ON DISCHARGE.
--- NOTE | 2017-04-06 21:55 | NUR ---
STARTED 1 UNIT OF PRBC'S PER ORDER. VITALS STABLE AND PT IS AFEBRILE.
[2017-04-07] VITALS (7 sets, daily range): BP systolic 122–179; BP diastolic 72–107
--- NOTE | 2017-04-07 00:42 | NUR ---
VITALS REMAIN STABLE AND PT IS AFEBRILE.
--- NOTE | 2017-04-07 01:10 | NUR ---
BLOOD TRANSFUSION COMPLETE. VITALS STABLE AND PT REMAINS AFEBRILE. WILL CONTINUE TO MONITOR FOR NEEDS.
[2017-04-07 04:50] LABS: BASOPHILS 0.5 % (0-2); EOSINOPHILS 3.7 % (0-7); HEMATOCRIT 29.9 % (36.0-48.0); HEMOGLOBIN 9.5 g/dL (12-16); IMMATURE GRANULOCYTES 0.3 % (0-5); LYMPHOCYTES 22.7 % (15-50); MCH 29.2 pg (26.0-34.0); MCHC 31.8 g/dL (31.0-37.0); MEAN PLATELET VOLUME 10.5 fL (7.4-10.4); MONOCYTES 9.1 % (2-11); NEUTROPHILS 63.7 % (40-80); PLATELET COUNT 174 10x3/uL (130-400); RBC 3.25 10x6/uL (4.00-5.40); RDW 15.8 % (11.5-14.5); WBC 6.3 10x3/uL (4.8-10.8)
[2017-04-07 05:14] LABS: ANION GAP 13.2 mmol/L (8-16); CALCIUM 8.3 mg/dL (8.5-10.1); CARBON DIOXIDE 20.7 mmol/L (21.0-32.0); CREATININE - SERUM 1.4 mg/dL (0.6-1.3); POTASSIUM - SERUM 3.9 mmol/L (3.5-5.1)
--- NOTE | 2017-04-07 07:15 | NUR ---
REPORT RECEIVED FROM PUBLIC RELATIONS SENIOR ASSOCIATE NURSE. CALL LIGHT IN REACH.
--- NOTE | 2017-04-07 08:52 | NUR ---
ASSESSMENT COMPLETED. CALL LIGHT IN REACH. REFUSES SCDs. WILL CONTINUE WITH PLAN OF CARE.
--- NOTE | 2017-04-07 10:10 | NUR ---
AM MEDS ADMINISTERED. CALL LIGHT IN REACH.
--- NOTE | 2017-04-07 12:39 | NUR ---
KERI CAO. FSBS 98.
--- NOTE | 2017-04-07 14:20 | NUR ---
NO NEEDS AT THIS TIME. CALL LIGHT IN REACH.
--- NOTE | 2017-04-07 15:33 | NUR ---
LISINOPRIL PO. NYSTATIN TOPICAL.
--- NOTE | 2017-04-07 17:48 | NUR ---
BLOOD SUGAR 178. DOES NOT WANT INSULIN.
--- NOTE | 2017-04-07 18:01 | NUR ---
NO CHANGES IN INITIAL ASSESSMENT. CALL LIGHT IN REACH. WILL CONTINUE WITH PLAN OF CARE.
--- NOTE | 2017-04-07 19:00 | NUR ---
REPORT RECEIVED AND CARE OF PT ASSUMED. PT LYING IN LOW NOLAND'S POSITION WITH EYES CLOSED AND UNLABORED BREATHING. IV IN LEFT UPPER ARM PATENT WITH D5W INFUSING AT 30 ML / HR. VALLES CATHETER DRAINING TO GRAVITY WITH DARK YELLOW URINE IN COLLECTION BAG. WILL MONITOR CLOSELY FOR NEEDS.
--- NOTE | 2017-04-07 20:54 | NUR ---
HS MEDICATIONS GIVEN. FSBS THIS CHECK 206 REQUIRING COVERAGE WITH 4 UNITS OF HUMALOG PER SLIDING SCALE. WILL CONTINUE TO MONITOR FOR NEEDS.
[2017-04-08] VITALS: BP 150/89
--- NOTE | 2017-04-08 00:09 | NUR ---
PT RESTING QUIETLY IN LOW NOLAND'S POSITION WITH EYES CLOSED AND UNLABORED BREATHING. SIDE RAILS UP X2 FOR SAFETY.
[2017-04-08 04:00] VITALS: BP 138/74
[2017-04-08 05:13] LABS: BASOPHILS 0.3 % (0-2); EOSINOPHILS 4.1 % (0-7); HEMATOCRIT 30.6 % (36.0-48.0); HEMOGLOBIN 9.8 g/dL (12-16); IMMATURE GRANULOCYTES 0.3 % (0-5); LYMPHOCYTES 22.9 % (15-50); MCH 29.5 pg (26.0-34.0); MCV 92.2 fL (80.0-100.0); MEAN PLATELET VOLUME 10.1 fL (7.4-10.4); MONOCYTES 9.2 % (2-11); NEUTROPHILS 63.2 % (40-80); PLATELET COUNT 186 10x3/uL (130-400); RBC 3.32 10x6/uL (4.00-5.40); RDW 15.9 % (11.5-14.5); WBC 6.5 10x3/uL (4.8-10.8)
[2017-04-08 05:36] LABS: CALCIUM 8.9 mg/dL (8.5-10.1); CARBON DIOXIDE 21.7 mmol/L (21.0-32.0); CREATININE - SERUM 1.4 mg/dL (0.6-1.3); POTASSIUM - SERUM 3.7 mmol/L (3.5-5.1)
--- NOTE | 2017-04-08 07:30 | NUR ---
RECIEVED PT DURING WALKING ROUNDS, PT RESTING IN BED WITH NO COMPLAINTS OF PAIN OR DISCOMFORT AT THIS TIME. ASSESSMENT DONE PER FLOWSHEET. BED IN LOW POSITION AND CALL LIGHT WITHIN REACH. WILL CONTINUE TO MONITOR.
[2017-04-08 08:43] VITALS: BP 154/84
[2017-04-08] MEDS ORDERED: ACETAMINOPHEN325 MG PO (15:37)
[2017-04-08] MEDS ORDERED: LISINOPRIL10 MG PO (15:37)
[2017-04-08] MEDS ORDERED: PROCRIT/EP4000 UNITS SC (15:37)
[2017-04-08] MEDS ORDERED: FLORAJEN3 CAPS460 MG PO (15:38)
[2017-04-08] MEDS ORDERED: NYSTATIN1 PWD TOPICAL (15:38)
[2017-04-08] MEDS ORDERED: AMPICILLIN TRI500 MG PO (15:40)
--- NOTE | 2017-04-08 15:56 | NUR ---
REPORT CALLED TO DIONE CLAYTON LPN AT [facility].
[2017-04-08] MEDS ORDERED: AMOXICILLIN875 MG PO (16:01)
[2017-04-08 16:13] VITALS: BP 158/82
--- NOTE | 2017-04-08 16:47 | NUR ---
CM REASSESSMENT NOTE: PATIENT IS DISCHARGING TODAY TO [facility] TO A SKILLED BED BY AMBULANCE.
--- NOTE | 2017-04-08 17:06 | NUR ---
PT DISCHARGED VIA AMBULANCE TO [facility].
--- NOTE | 2017-04-09 08:36 | OP ---
PATIENT NAME: PAULINA CHARLES MEDICAL RECORD: [id number] :43 LOCATION:D.[facility] ADMISSION DATE:03/23/17 SURGEON: HENRY ESTRADA MD DATE OF OPERATION: 04/04/2017 SURGEON: Henry Estrada MD ANESTHESIA: General anesthesia by Soto Roper CRNA. PREOPERATIVE DIAGNOSES: 1. Right pyelonephritis due to enterococcus of the calyx. 2. Infected renal stones. 3. Right ureteropelvic junction obstruction. PROCEDURES: 1. Cystoscopy and removal of ureteral stent. 2. Right percutaneous nephrolithotomy of multiple right lower pole stone. 3. Right Acucise endopyelotomy of the UPJ obstruction. SPECIMENS: Right renal stones times 4. They are about 1 cm + 1 cm + 6 mm + 4 mm in length. Also, findings, focal stenosis of the UPJ. ESTIMATED BLOOD LOSS: Minimal. COMPLICATIONS: None. CLINICAL HISTORY: This is a 71-year-old female with a rather complicated urological history. She has a somewhat atrophic right kidney, which was filled with a rather large stones. She came to the hospital with pyelonephritis. Cultures have shown Enterococcus. She was on the appropriate antibiotics for infection and infection was under control. She was found to have a right UPJ obstruction, which was the cause of the stones and ultimately the infection. Because of the UPJ obstruction, we cannot treat her with lithotripsy or ureteroscopy. Therefore, we are going to remove the stones via percutaneous nephrolithotomy. She did have a nephrostomy tube to drain the kidney for a while and that was converted 2 days ago to a nephroureteral access by interventional radiology. She had been scheduled for surgery 2 days ago, but we did not have a South African LithoClast device available at that time. Therefore, we had to wait until today when the machine was available on loan from [employer]. Since she was already on IV antibiotics on the floor, we did not have to give her any further antibiotics. DESCRIPTION OF PROCEDURE: The patient was first placed in supine position on the bed. She was given induction of general anesthesia. Her legs were placed in frog-leg position. I performed cystoscopy on the patient in order to get her nephroureteral access stent out of the urethra. The stent was seen and grasping forceps were used to pull the distal end of the stent out of the urethra. It was left hanging out of the urethra. The plan was to place my guidewire down this nephroureteral access and out of the urethra. Once it was out of the urethra, it will be clamped with a hemostat to prevent backwards migration of the wire and loss of the access. She was then turned onto the prone position using jelly rolls to support her. She was padded on all points. She was prepped and draped. Interventional radiology had actually left us with two nephroureteral catheters. I placed an Amplatz Super Stiff wire down one of them and that turned out to be the stent that I had exteriorized with the patient in OPERATIVE REPORT [id number] PAULINA CHARLES supine position. Once the wire was coming out of the exteriorized ureteral stent, it was clamped with a hemostat. I was then able to remove the nephroureteral access catheters from the back of the patient. A 1 cm long incision was made on either side of the Super Stiff wire. A dual-lumen catheter was introduced into the renal pelvis and down the proximal ureter. Through the second lumen, a Sensor wire was placed down into the bladder. This serves as a safety wire. We then removed the dual lumen catheter, leaving these wires in place. The sensor wire was then clamped to the drapes to act as a safety wire. We worked over the Super Stiff wire. Over the Super Stiff wire, we inserted the NephroMax tract dilation balloon. Once the balloon was in position under fluoroscopic guidance, the balloon was inflated with 20 atmospheres of pressure to dilate the tract. A 30-Salvadorean working sheath was slid over the balloon and down the tract into the renal pelvis. The balloon was then deflated and completely removed, leaving the Super Stiff wire in place. The nephroscope could then be introduced. It should note that, on fluoroscopy the stones did not appear to be radiodense. We could not see them fluoroscopically. However, going in with the nephroscope, we were easily able to see the stones and using grasping forceps, I was able to remove most of them. Some smaller stones were difficult to get with the graspers and I used the [place] LithoClast to break them down and suction them out. There was also one stone in the middle pole calyx that I had to use a Cook Rhgu-J-Majavv basket to remove entirely. Finally, further nephroscopy showed no further stones in the kidney. At this point, we opened up the Acucise endopyelotomy balloon. It was placed over the Amplatz Super Stiff wire through the nephroscope. I made sure that the wire was facing lateral on the patient. This was confirmed visually and fluoroscopically. The safety wire was completely removed. A 3 cc of diluted contrast were placed into the balloon and the waisting was seen as the focal stricture right at the UP junction. We then applied 75 almonte of pure cut current through the Acucise wire for 5 seconds. During this time, the balloon was inflated with 3 cc of diluted contrast. I should note that we did switch over the irrigation for the Acucise to sterile water, whereas before we had been using normal saline. Once the first application was done, I noted that there was still waisting visible. Therefore, application of energy with the Acucise balloon inflated was given for another 5 seconds. At this point, I could see the extrarenal tissues through the defect. Also, our second application of energy had burst our Acucise balloon. The balloon catheter was then completely removed, leaving the guidewire in place. We placed the Acucise endopyelotomy stent down the wire with a small end going into the bladder and the big end in the renal pelvis. At this point, we had dilemma on how to remove the wire, because if we pulled the wire down distally the stent will come out with it. Therefore, I had the circulating nurse cut the wire at the urethral meatus with wire cutters, which were sterile. The wire was then withdrawn completely under direct vision with the stent maintained in position using a pusher. The distal end of the stent was seen to coil up in the bladder. The proximal end of the stent was able to coil up in the renal pelvis. At this point, we removed the nephroscope. The 24-Salvadorean nephrostomy tube was placed into the renal pelvis. The stylet was removed to allow the Malecot wings to expand in the renal pelvis. Nephrostogram was performed. There was no obvious extravasation, but I am pretty sure that we have cut through full thickness in the UP junction. At this point, the working sheath was removed. The nephrostomy tube was sutured to the skin using 2-0 silk. An adapter was used to allow the nephrostomy tube to drain to a Souza catheter drainage bag. Dressings were applied for the patient and she was awakened and brought to the recovery room. The plan was to leave the nephrostomy drainage for 2 days while she was maintained on IV antibiotics. Once the nephrostomy drainage was no longer bloody, I can remove the nephrostomy OPERATIVE REPORT [id number] PAULINA CHARLES tube on the floor and she can be transferred back to a assisted. She will have the endopyelotomy stent in for a period of 6 weeks. Afterwards, I will bring her back for cystoscopy and stent removal. Once the stent was removed, we can then perform a Lasix renal scan to verify that the stricture has gone. TRANSINT:[id number] Voice Confirmation ID: [id number] DOCUMENT ID: [id number] HENRY ESTRADA MD at 0836 CC: [id number] DICTATION DATE: 04/04/17 1518 MANAGER UTILIZATION REVIEW: 04/04/17 1620 DIS IN 04/08/17 [facility] [address] [place] [address]
== END 2017-04-08 17:08 | DRG 698 ==
LOC: D.ER 19:32 → D.MS 21:36 → D.SDCHOLD 03-25 16:19 → D.MS 03-25 16:30
PROVIDERS: Family Medicine; Family Medicine Adult Medicine; Internal Medicine Nephrology; Radiology Diagnostic Radiology; Specialist; Student in an Organized Health Care Education/Training Program; ADMIT Emergency Medicine
PROC: 0T25X0Z Change Drainage Device in Kidney, External Approach (ICD-10-PCS; principal; 2017-03-26 10:00)
PROC: 0TP98DZ Removal of Intraluminal Device from Ureter, Via Natural or Artificial Opening Endoscopic (ICD-10-PCS; 2017-03-28)
PROC: 0T25X0Z Change Drainage Device in Kidney, External Approach (ICD-10-PCS; 2017-04-02)
DX: T83.592A Infection and inflammatory reaction due to indwelling ureteral stent, initial encounter (principal); R53.2 Functional quadriplegia; N10 Acute pyelonephritis; I13.0 Hypertensive heart and chronic kidney disease with heart failure and stage 1 through stage 4 chronic kidney disease, or unspecified chronic kidney disease; N17.9 Acute kidney failure, unspecified; E11.65 Type 2 diabetes mellitus with hyperglycemia; E11.22 Type 2 diabetes mellitus with diabetic chronic kidney disease; N18.9 Chronic kidney disease, unspecified; I50.9 Heart failure, unspecified; N20.0 Calculus of kidney; Z66 Do not resuscitate; H91.3 Deaf nonspeaking, not elsewhere classified; F32.9 Major depressive disorder, single episode, unspecified; B02.9 Zoster without complications; B96.20 Unspecified Escherichia coli [E. coli] as the cause of diseases classified elsewhere

== ENCOUNTER 2017-05-16 08:24 | Day surgery (SDC) | payer MEDICARE ==
[~2017-05-16 08:24] MED LIST changes: +ACETAMINOPHEN325 MG PO; +AMOXICILLIN875 MG PO; +AMPICILLIN TRI500 MG PO; +FLORAJEN3 CAPS460 MG PO; +FUROSEMIDE20 MG PO; -LASIX40 MG PO; +LISINOPRIL10 MG PO; +MIRALAX17 GM PO; +NYSTATIN1 PWD TOPICAL; +PROCRIT/EP4000 UNITS SC
[2017-05-16] MEDS ORDERED: FLORANEX / LACT1 TAB PO (09:05)
[2017-05-16] MEDS ORDERED: COLACE100 MG PO (09:05)
[2017-05-16] MEDS ORDERED: PEPCID20 MG PO (09:06)
[2017-05-16] MEDS ORDERED: SUPER B COMPLE150 MG PO (09:07)
[2017-05-16] MEDS ORDERED: NOVOLOG100 U/M1 SC (09:08)
[2017-05-16] MEDS ORDERED: ULTRAM50 MG PO (09:10)
[2017-05-16] MEDS ORDERED: CELEXA20 MG PO (09:11)
[2017-05-16 09:18] VITALS: BP 115/73; BMI 29.6
[2017-05-16 09:50] LABS: HEMATOCRIT 42.7 % (36.0-48.0); HEMOGLOBIN 12.8 g/dL (12-16); MCH 28.6 pg (26.0-34.0); MCV 95.3 fL (80.0-100.0); MEAN PLATELET VOLUME 10.4 fL (7.4-10.4); RBC 4.48 10x6/uL (4.00-5.40); RDW 16.4 % (11.5-14.5); WBC 5.4 10x3/uL (4.8-10.8)
[2017-05-16 10:02] LABS: ANION GAP 18.5 mmol/L (8-16); CALCIUM 9.3 mg/dL (8.5-10.1); CARBON DIOXIDE 22.8 mmol/L (21.0-32.0); CREATININE - SERUM 2.6 mg/dL (0.6-1.3); POTASSIUM - SERUM 5.3 mmol/L (3.5-5.1)
--- NOTE | 2017-05-16 14:34 | NUR ---
1430 DISCHARGE INSTRUCTIONS COMPLETE WITH THE HELP OF PATIENT'S SON BHARGAVI. THEY HAVE NO QUESTIONS OR CONCERNS AT THIS TIME. KATIA FROM [facility] ESCORTED PT OUT FOR DISCHARGE.
--- NOTE | 2017-05-17 08:58 | OP ---
PATIENT NAME: PAULINA CHARLES MEDICAL RECORD: [id number] :43 LOCATION:D.OPS ADMISSION DATE: SURGEON: HENRY ESTRADA MD DATE OF OPERATION: 05/16/2017 SURGEON: Henry Estrada MD ANESTHESIA: MAC by Soto Roper CRNA PREOPERATIVE DIAGNOSES: Right ureteropelvic junction obstruction, post-Acucise endopyelotomy, retained Acucise ureteral stent. PROCEDURES: Cystoscopy and removal of right ureteral stent. Findings were retained right ureteral stent. SPECIMENS: Right ureteral stent. ESTIMATED BLOOD LOSS: None. CLINICAL HISTORY: This is a 72-year-old female with a rather complicated medical history. She is completely deaf and she communicates only through sign language. She also has a history of diabetes mellitus, coronary artery disease with congestive heart failure. She came in initially with infection and right flank pain from numerous large stones and atrophic right kidney with a right UPJ obstruction. There is also a greater than 10-mm large lower pole stone in the left kidney, which is not causing any obstruction. She initially had a right ureteral stent inserted. Then, she had a right percutaneous nephrolithotomy. This was performed on 03/23/2017. At the same time, not only were all her stones removed. I performed an Acucise endopyelotomy of the ureteropelvic junction obstruction. An Acucise stent was placed. This was tapered stent with a large diameter portion of the stent being up against the incised area of the stricture. The stent is in place for 6 weeks. It is now time to remove the stent. Post-procedure, she will have a Lasix renal scan performed as an outpatient to see if the right UPJ obstruction has been relieved. Also, we eventually have to get rid of this large stone in the left lower pole of the kidney, most likely via a left PCNL. She is not allergic to any medication and she was given Ancef 2 grams IV ammunition and explosives handler to the OR. Dosing is based on the patient's weight. DESCRIPTION OF PROCEDURE: The patient was given IV sedation. She was then placed into dorsal lithotomy position. She has an indwelling Souza catheter from being a resident of a fpc and being relatively immobile. This was removed. She was then prepped and draped. A 21-Paraguayan cystoscope with 30-degree lens was used for visualization. The stent was immediately seen. Grasping forceps were used to completely remove the stent. The entire procedure took less than 15 seconds to perform. She was then brought back to her preoperative holding bed. We will make arrangements for her to have a Lasix renal scan as an outpatient. We will have to see her in followup to discuss what to do next. TRANSINT:[id number] Voice Confirmation ID: [id number] DOCUMENT ID: [id number] OPERATIVE REPORT [id number] PAULINA CHARLES, HENRY Velasco MD at 0858 CC: [id number] DICTATION DATE: 05/16/17 1232 [facility] BLACK AND WHITE: 05/16/17 1302 [facility] [place] 05/16/17 [id number] [place] [address]
== END 2017-05-16 14:30 | disposition home or self-care (01) ==
LOC: D.OPS 08:24
PROVIDERS: Anesthesiology
DX: Z96.0 Presence of urogenital implants (principal); N39.0 Urinary tract infection, site not specified; I13.0 Hypertensive heart and chronic kidney disease with heart failure and stage 1 through stage 4 chronic kidney disease, or unspecified chronic kidney disease; N18.9 Chronic kidney disease, unspecified; N17.9 Acute kidney failure, unspecified; E11.22 Type 2 diabetes mellitus with diabetic chronic kidney disease; Z01.812 Encounter for preprocedural laboratory examination; K21.9 Gastro-esophageal reflux disease without esophagitis

== ENCOUNTER → 2017-05-29 12:16 | Outpatient (CLI) | payer MEDICARE ==
[2017-05-16 09:18] VITALS: BMI 29.6
[~2017-05-29 12:16] MED LIST changes: +CELEXA20 MG PO; +COLACE100 MG PO; +FLORANEX / LACT1 TAB PO; +NOVOLOG100 U/M1 SC; +SUPER B COMPLE150 MG PO; +ULTRAM50 MG PO
== END | disposition home or self-care (01) ==
LOC: D.NM 05-28 14:30
DX: N13.0 Hydronephrosis with ureteropelvic junction obstruction (principal)

== ENCOUNTER 2017-09-11 06:47 | Outpatient (CLI) | payer MEDICARE ==
[2017-09-11 08:48] VITALS: BP 154/82; BMI 35.0
[2017-09-11 08:50] LABS: BASOPHILS 0.2 % (0-2); EOSINOPHILS 2.3 % (0-7); HEMATOCRIT 40.6 % (36.0-48.0); HEMOGLOBIN 12.7 g/dL (12-16); IMMATURE GRANULOCYTES 0.2 % (0-5); LYMPHOCYTES 28.3 % (15-50); MCH 28.5 pg (26.0-34.0); MCHC 31.3 g/dL (31.0-37.0); MCV 91.2 fL (80.0-100.0); MEAN PLATELET VOLUME 10.4 fL (7.4-10.4); MONOCYTES 6.6 % (2-11); NEUTROPHILS 62.4 % (40-80); PLATELET COUNT 169 10x3/uL (130-400); RBC 4.45 10x6/uL (4.00-5.40); WBC 10.7 10x3/uL (4.8-10.8)
[2017-09-11 08:55] LABS: ANION GAP 12.7 mmol/L (8-16); CALCIUM 9.2 mg/dL (8.5-10.1); CARBON DIOXIDE 26.3 mmol/L (21.0-32.0); CREATININE - SERUM 1.6 mg/dL (0.6-1.3)
[2017-09-11 09:05] LABS: APTT 31.8 SECONDS (22.8-39.4); INR 1.12 (0.85-1.17)
== END 2017-09-11 11:00 | disposition home or self-care (01) ==
LOC: D.OPS 06:47 → EDSTATUS 07:30 → D.OPS 09:00
PROVIDERS: General Practice
DX: N20.0 Calculus of kidney (principal); Z01.810 Encounter for preprocedural cardiovascular examination; Z01.811 Encounter for preprocedural respiratory examination; Z01.812 Encounter for preprocedural laboratory examination; Z53.9 Procedure and treatment not carried out, unspecified reason

== ENCOUNTER → 2017-11-11 09:11 | Outpatient (CLI) | payer MEDICARE | END | disposition home or self-care (01) | LOC: D.CT 09:11 | DX: N20.0 Calculus of kidney (principal) ==

== ENCOUNTER 2018-01-09 06:02 | Day surgery (SDC) | payer MEDICARE ==
[~2018-01-09] VITALS: Ht 172.7 cm; Wt 68.0 kg
--- NOTE | ~2018-01-09 | HEMODYNAMI ---
PATIENT:PAULINA CHARLES MEDICAL RECORD: [id number] : 43 LOCATION:P[facility]REZ ADMISSION DATE: 01/09/18 Generatedon:01/09/201810:54 Patient name: PAULINA CHARLES Patient #: [id number] SSN: DO B: 1945 Date of study: 01/09/2018 Page: Of Hemodynamic Procedure Report Patient Data Patient Demographics Procedure consent was obtained First Name: PAULINA Gender: Female Last Name: ARACELI : 1945 Middle Initial: M Age: 72 year(s) Patient #: [id number] Race: Unknown Additional ID: [id number] Contact details Address: [address] [place] [address] [facility] State: [place] City: [place] Zip code: [address] Past Medical History Allergies: No known allergies Admission Admission Data Admission Date: 01/09/2018 Admission Time: 6:02 Procedure Procedure Types Cath Procedure Peripheral Cath Diagnostic Procedure Nephro Procedure Description Procedure Date Procedure Date: 01/09/2018 Procedure Start Time: 9:30 Procedure Staff Name Function Scar Nunez MD Performing Physician Francie Goldberg RN Nurse Cosme Rea RT Monitor Susan Amos RT Scrub Procedure Data Cath Procedure Fluoroscopy Diagnostic fluoroscopy Total fluoroscopy Time: time: 15.6 min 15.6 min Diagnostic fluoroscopy Total fluoroscopy dose: 206 dose: 206 mGy mGy Contrast Material Contrast Material Type Amount (ml) Isovue 300 130 Procedure Medications Medication Administration Route Dosage unlisted medication 1 Lidocaine 1% added to field 20 Heparin Flush Bag added to field 1 bags (1000units/500ml NS) Versed I.V. 1 mg Fentanyl I.V. 50 mcg Versed I.V. 1 mg Fentanyl I.V. 50 mcg Versed I.V. 1 mg Fentanyl I.V. 50 mcg Versed I.V. 1 mg Fentanyl I.V. 50 mcg unlisted medication 100 Hemodynamics Rest Heart Rate: 89 (bpm) Snapshots Pre Cath Intra NCS Post Cath Vital Signs Time Heart Resp SPO2 etCO2 NIBP (mmHg) Rhythm Pain Sedation Rate (ipm) (%) (mmHg) Status Level (bpm) 9:10:19 20 93 24.7 170/103(134) NSR 0 (11) 10(A) , No pain 9:14:43 87 25 93 24.7 166/100(130) NSR 0 (11) 10(A) , No pain 9:19:06 87 23 94 25.5 169/101(132) NSR 0 (11) 10(A) , No pain 9:23:22 82 22 92 26.2 159/97(130) NSR 0 (11) 10(A) , No pain 9:27:40 77 30 92 26.2 152/91(121) NSR 0 (11) 10(A) , No pain 9:31:58 78 24 92 24.7 153/87(121) NSR 0 (11) 10(A) , No pain 9:36:16 76 40 93 24.7 146/86(125) NSR 0 (11) 8(A) , No pain 9:40:38 71 30 93 24.7 146/73(123) NSR 0 (11) 8(A) , No pain 9:44:56 71 30 93 25.5 145/81(117) NSR 0 (11) 8(A) , No pain 9:49:12 72 37 93 27.7 149/87(126) NSR 0 (11) 8(A) , No pain 9:53:26 72 35 93 24.7 144/83(124) NSR 0 (11) 8(A) , No pain 9:57:44 72 31 93 25.5 145/81(115) NSR 0 (11) 8(A) , No pain 10:01:58 66 13 91 27.7 126/67(104) NSR 0 (11) 8(A) , No pain 10:06:10 68 14 92 30.8 131/78(116) NSR 0 (11) 8(A) , No pain 10:10:22 71 22 92 21.7 137/82(113) NSR 0 (11) 8(A) , No pain 10:14:36 70 14 93 32.3 129/75(106) NSR 0 (11) 8(A) , No pain 10:18:52 70 13 93 32.3 136/71(113) NSR 0 (11) 8(A) , No pain 10:23:08 70 14 92 29.2 138/78(116) NSR 0 (11) 8(A) , No pain 10:27:20 66 12 91 34.5 122/67(108) NSR 0 (11) 8(A) , No pain 10:31:32 66 12 92 37.5 125/68(100) NSR 0 (11) 8(A) , No pain 10:35:44 67 13 91 37.5 128/75(106) NSR 0 (11) 8(A) , No pain 10:39:54 75 15 93 35.2 146/89(113) NSR 0 (11) 8(A) , No pain 10:44:12 74 27 91 36.7 141/82(117) NSR 0 (11) 8(A) , No pain 10:48:30 72 14 95 31.5 138/79(113) NSR 0 (11) 8(A) , No pain 10:52:48 68 13 95 31.5 139/73(113) NSR 0 (11) 8(A) , No pain Medications Time Medication Route Dose Verified Delivered Reason Notes Effec tiveness by by 9:03:17 cefepime ivpb 1 gm Scar Marmolejo used for Yusuf Nunez RN procedure 9:03:31 Lidocaine 1% added 20ml Scar Abbott used for to vial Enrique Nunez MD procedure field NO 9:03:43 Heparin Flush added 1 Scar Abbott used for Bag to bags Enrique Nunez MD procedure (1000units/500ml field NO NS) 9:31:56 Versed I.V. 1 mg Scar Venturaody for Yusuf Nunez RN sedation 9:32:09 Fentanyl I.V. 50 Scar Venturaody for mcg Yusuf Nunez RN sedation 9:46:40 Versed I.V. 1 mg Scar Francie for Yusuf Nunez RN sedation 9:46:49 Fentanyl I.V. 50 Scar Venturaody for mcg Yusuf Nunez RN sedation 10:22:12 Versed I.V. 1 mg Scar Francie for Yusuf Nunez RN sedation 10:22:20 Fentanyl I.V. 50 Scar Francie for mcg Yusuf Nunez RN sedation 10:24:29 Versed I.V. 1 mg Scar Marmolejo for Yusuf Nunez RN sedation 10:24:35 Fentanyl I.V. 50 Scar Venturaody for mcg Yusuf Nunez RN sedation 10:45:35 contrast iv 100 Scar Francie used for cc Yusuf Nunez RN procedure MD Procedure Log Time Note 8:35:39 Cosme Rea RT (R) (CV) sent for patient. Start room use. 8:35:47 Time tracking: Regular hours (M-F 7:00 - 5:00) 8:35:52 Plan of Care:Hemodynamics will remain stable., Cardiac rhythm will remain stable., Comfort level will be maintained., Respiratory function will remain adequate., Patient/ family verbilizes understanding of procedure., Procedure tolerated without complication., Recovers from procedure without complications.. 8:36:11 Patient received from Outpatients to IR Alert and oriented. Tansferred to table in Prone position. 8:36:15 Correct patient and procedure confirmed by team. 8:36:17 Signed procedure consent form obtained from patient. 8:36:18 ECG and BP/O2 sat monitors applied to patient. 8:36:21 Full Disclosure recording started 8:36:21 - 8:36:25 H&P Date Dictated: 01/09/2018 H&P Addendum completed by physician on day of procedure. (MUST COMPLETE FOR ALL OUTPATIENTS). 8:36:25 Pre-procedure instructions explained to patient. 8:36:26 Pre-op teaching completed and patient verbalized understanding. 8:36:27 Family in waiting room. 8:36:29 Patient NPO since Midnight. 8:36:37 Is the patient allergic to Iodine/contrast media? No. 8:36:47 Was the patient premedicated? No 8:36:49 Is patient on blood thinner?No 8:36:50 Patient diabetic? No. 8:36:51 - 8:36:52 ----Pre-sedation anethsthesia assessment.---- 8:36:56 Previous problem with sedation/anesthesia? No ? 8:36:57 Snore? No 8:36:59 Sleep apnea? No 8:37:04 Deviated septum? No 8:37:07 Opens mouth fully? Yes 8:37:09 Sticks out tongue? Yes 8:37:11 Airway obstruction? No ? 8:37:14 Dentures? No ? 8:37:21 Patient pain scale 0/10 no pain. 8:37:26 IV patent on arrival in left hand with 0.9% NaCl at KVO. 8:37:28 Sharps counted by scrub and verified by R.NRick 8:37:28 Alarms reviewed by RRick N. 8:37:50 Lumbar area was prepped with chlora-prep and draped in sterile fashion 8:37:57 Use device set IR Diagnostic 8:38:05 Sterile Angiographic Pack opened to sterile field. 8:38:06 Bag Decanter (2002S) opened to sterile field. 9:03:17 cefepime 1 gm ivpb was administered by Francie Goldberg RN; used for procedure; 9:03:31 Lidocaine 1% 20ml vial added to field was administered by Scar Nunez MD; used for procedure; 9:03:43 Heparin Flush Bag (1000units/500ml NS) 1 bags added to field was administered by Scar Nunez MD; used for procedure; 9:09:04 Baseline sample Acquired. 9:09:08 Vital chart was started 9:29:47 Physician arrived 9:29:48 --------ALL STOP TIME OUT------ 9:29:48 Final Timeout: patient, procedure, and site verified with staff and physician. All members of the team are in agreement. 9:29:52 Lumbar site verified by team. 9::57 Sedation plan: IV Moderate Sedation Medication:Versed, Fentanyl 9:30:06 Procedure started. 9:30:15 Local anesthetic to Abdominal area with Lidocaine 1% by Scar Nunez MD.INITIAL ACCESS ONLY 9:31:56 Versed 1 mg I.V. was administered by Francie Goldberg RN; for sedation; 9:32:09 Fentanyl 50 mcg I.V. was administered by Francie Goldberg RN; for sedation ; 9:45:02 KIT, INTRODUCER ACCUSTICK II W/C ([id number]) opened to sterile field. 9:45:02 CHIBA 22 X 15 needle opened to sterile field. 9:45:03 GLIDE CATHETER 5FR STRAIGHT 65cm (CG505) opened to sterile field. 9:46:40 Versed 1 mg I.V. was administered by Francie Goldberg RN; for sedation; 9:46:49 Fentanyl 50 mcg I.V. was administered by Francie Goldberg RN; for sedation ; 10:19:25 NITINOL .018 80cm wire ([id number]) opened to sterile field. 10:22:05 GLIDE WIRE Angled Super Stiff 180cm ([id number]) opened to sterile field. 10:22:12 Versed 1 mg I.V. was administered by Francie Goldberg RN; for sedation; 10:22:16 TORQUE DEVICE PLASTIC .038 ( TD01) opened to sterile field. 10:22:20 Fentanyl 50 mcg I.V. was administered by Francie Goldberg RN; for sedation ; 10:24:29 Versed 1 mg I.V. was administered by Francie Goldberg RN; for sedation; 10:24:35 Fentanyl 50 mcg I.V. was administered by Francie Goldberg RN; for sedation ; 10:44:45 Procedure ended.(Physican Out) 10:45:20 100 cc IV used for visualizaion 10:45:35 contrast 100 cc iv was administered by Francie Goldberg RN; used for procedure; 10:47:44 Fluoroscopy time 15.60 minutes. 10:47:54 Fluoroscopy dose: 206 mGy 10:47:54 Flurop Dose total: 206 10:48:03 Contrast amount:Isovue 300 130ml. 10:48:05 Sharps counted by scrub and verified by R.N. 10:48:09 Insertion/operative site no bleeding no hematoma. 10:48:17 Post-op/insertion site Right Lumbar area dressed using a 4 x 4 and Tegaderm. 10:49:10 Post Lumbar area:stable 10:49:17 Post procedure instruction explained to patient.Patient verbalizes understanding. 10:49:25 Procedure and supply charges have been captured, reviewed, submitted an d are correct. 10:54:22 Report given to Outpatients. 10:54:25 Patient transfered to Outpatients with Bed. 10:54:50 Vital chart was stopped Device Usage Item Name Manufacture Quantity Catalog Hospital Part Current Minimal Lot# / Number Charge Number Stock Stock Serial# Code Sterile Cardinal 1 [id number] 5 Angiographic Health Pack Bag Decanter Microtek 1 [id number] [id number] [id number] 5 (2001S) [employer] KIT, [place] 1 [id number] 561585 569964 943436 5 [id number] INTRODUCER Scientific ACCUSTICK II W/C ([id number]) CHIBA 22 X Cook Medical 1 [id number] 938433 [id number] 5 [id number] 15 needle GLIDE Terumo 1 CG505 317901 219409 5 CATHETER 5FR STRAIGHT 65cm (CG505) NITINOL .018 Medtronic 1 [id number] 398132 [id number] 5 [id number] 80cm wire ([id number]) GLIDE WIRE Terumo 1 [id number] 150401 045573 5 Angled Super Stiff 180cm (LC5049) TORQUE [place] 1 TD01 079028 512017 119718 5 DEVICE Scientific PLASTIC .038 ( TD01) Signature Audit Gatzke Stage Time Signature Unsigned Intra-Procedure 01/09/2018 Cosme 10:54:46 AM Rona RT (R) (CV) Signatures Monitor : Cosme Signature : Rona RT Date : Time : [facility] [address] [place] [address]
--- NOTE | ~2018-01-09 | OP ---
PATIENT NAME: PAULINA CHARLES MEDICAL RECORD: [id number] :43 LOCATION:D.MS Torres2230 ADMISSION DATE: SURGEON: CYRUS ESTRADA MD DATE OF OPERATION: 01/09/2018 SURGEON: Cyrus Estrada MD ANESTHESIA: General anesthesia by Anurag Guevara CRNA. DIAGNOSIS: Right lower pole 10 mm renal stone. PROCEDURE: Right nephroscopy. FINDINGS: Faintly radiodense right renal stone in the lower pole anterior devyn. SPECIMENS: None. BLOOD LOSS: Minimal. CLINICAL HISTORY: This is a 72-year-old female, who has diabetes mellitus. 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 We communicate with her through her son who no sign language. I saw her last year when she came in with a UTI from Enterococcus faecalis. She seems to have infected renal stones. She is diabetic. I performed an Acucise endopyelotomy to resolve a right ureteral stricture. Later she had a right percutaneous nephrolithotomy, which cleaned out virtually all of the stones in the right kidney, except for a 10 mm right lower pole stone. This was located in anterior lower pole devyn, which I could not get at through the mid pole access for the PCNL. The patient comes now for another attempt at PCNL to get rid of the right lower pole stone. There is also a large left anterior renal stone, which we will have to attend to at a later date. We gave her Ancef math interventionist to the OR. Earlier today, Dr. Nunez of interventional radiology attempted to get an access right onto the stone. He had a lot of difficulty with this access and eventually he got access into the posterior lower pole devyn. He may be assumption that I would be able to somehow swing around to the anterior lower pole devyn and get out the stone lodged in the anterior lower pole devyn. She comes to have this procedure attempted now. DESCRIPTION OF PROCEDURE: The patient was given induction of general anesthesia while she was in supine position. She was then placed in frog-leg position on the stretcher and prepped and draped. I performed cystoscopy using a rigid cystoscope. The right ureteral access catheter was taken out of the bladder and the distal end was pulled out through the urethra. This was done using grasping forceps. This will allow the wire from the kidney to be clamped with a hemostat to prevent loss of the access tract. The patient was then turned into the prone position on the Nolan frame. All pressure points were padded. She was prepped and draped. The nephroureteral access catheter was accessed by placement of an Amplatz Super Stiff wire down the lumen. The circulating nurse then intercepted the wire as it came out of the nephroureteral catheter through the urethra. A hemostat was placed on the wire to prevent loss of the access tract. The nephroureteral catheter was removed completely. An incision was made on either side of the wire using a #15 blade. We then used a dual lumen catheter and a Sensor wire was placed down the second lumen and this served as a safety wire. The dual lumen catheter was then removed, leaving the [address] The OPERATIVE REPORT [id number] PAULINA CHARLES Sensor wire was clamped to the drapes to act as a safety wire. We worked over the Amplatz Super Stiff wire. The tract was dilated using a 30-Tamazight balloon dilator. The working sheath was placed down. On fluoroscopy, I had a very hard time seeing the stone at all. I reviewed Dr. Nunez's fluoroscopic images from the morning and the stone is very faintly radiodense. Review of the stone analysis showed that there is about 5% to 10% calcium phosphate and the rest is ammonium urate. This would account for radiolucency. However, as the urate is already in compound with ammonia, trying to alkalize the urine will not make this dissolved. The scope was placed down. I attempted to perform nephroscopy. All the calices that I could access were visualized and no stone was visible. I had Dr. Nunez come into the room. He said that the stone was located in the lower pole anterior devyn. I attempted to get up into the said devyn. The scope was unable to twist around to get up at that awkward angle. I then attempted to use a flexible nephroscope, but the scope that I had was broken and it would not flex. Since we had no further sterile flexible scopes available, I decided to abandon the procedure. In discussing this case with Dr. Nunez, he suggests that I leave the nephrostomy tube in place. At our next attempt, he will inject contrast through the nephrostomy tube and he will be able to better access the devyn that contains the stone directly. At this point, further attempts to get out the stone were abandoned. A nephrostomy tube was placed down the Super Stiff wire. The stylet of the nephrostomy tube was removed to allow the Malecot wings to expand in the renal pelvis. The Super Stiff wire was withdrawn entirely by pulling it down distally per the urethra using a hemostat on it. The safety wire was entirely withdrawn. The working sheath was withdrawn entirely. The nephrostomy tube was sutured down to the skin with a drain suture of 2-0 nylon. Dressings of 4 x 4 gauze and tape were applied. The nephrostomy tube was put to bag drainage. I will keep the patient overnight for observation. If she does not have undue pain, then she can be transferred back to her fci with the nephrostomy tube in place. She has an appointment for 01/21/2018 to come back to interventional radiology to try to get another access right into the devyn containing the stone. If they are successful, we will proceed with a right percutaneous nephrolithotomy at that time. TRANSINT:[id number] Voice Confirmation ID: [id number] DOCUMENT ID: [id number] CYRUS ESTRADA MD at 1757 CC: [id number] DICTATION DATE: 01/09/18 1423 FAN INSTALLER: 01/09/18 1451 [facility] [address] [id number]
[2018-01-09 06:31] LABS: BASOPHILS 0.4 % (0-2); EOSINOPHILS 3.4 % (0-7); HEMATOCRIT 37.5 % (36.0-48.0); IMMATURE GRANULOCYTES 0.2 % (0-5); LYMPHOCYTES 37.7 % (15-50); MCH 29.9 pg (26.0-34.0); MCV 93.5 fL (80.0-100.0); MEAN PLATELET VOLUME 9.7 fL (7.4-10.4); MONOCYTES 6.7 % (2-11); NEUTROPHILS 51.6 % (40-80); RBC 4.01 10x6/uL (4.00-5.40); WBC 5.4 10x3/uL (4.8-10.8)
[2018-01-09 06:33] LABS: PLATELET COUNT 113 10x3/uL (130-400)
[2018-01-09 07:02] LABS: APTT 34.9 SECONDS (22.8-39.4); INR 1.14 (0.85-1.17); PROTIME 14.1 SECONDS (11.6-15.0)
[2018-01-09 07:07] LABS: ANION GAP 13.5 mmol/L (8-16); CALCIUM 9.1 mg/dL (8.5-10.1); CARBON DIOXIDE 26.5 mmol/L (21.0-32.0); CREATININE - SERUM 1.3 mg/dL (0.6-1.3)
[2018-01-09 08:15] VITALS: BP 152/70; BMI 22.8
[2018-01-09 15:50] VITALS: BP 138/72; BMI 22.8
[2018-01-10] VITALS: BP 148/73
[2018-01-10 04:00] VITALS: BP 92/62
[2018-01-10 08:17] VITALS: BP 121/65
[2018-01-10 12:26] VITALS: BP 122/56
[2018-01-10 13:43] VITALS: Ht 172.7 cm; Wt 68.0 kg
[2018-01-10 15:43] VITALS: BP 123/60
[2018-01-10 20:00] VITALS: BP 130/89
[2018-01-11] VITALS: BP 124/66
[2018-01-11 05:43] VITALS: BP 105/54
[2018-01-11 08:13] VITALS: BP 109/62
[2018-01-11 11:32] VITALS: BP 110/65
== END 2018-01-11 18:15 | disposition home or self-care (01) ==
LOC: D.MS 06:02 → D.SP 06:02 → D.OPS 08:00 → D.PAN 08:00 → D.MS 15:25 → D.SP 01-11 18:15
PROVIDERS: Anesthesiology
DX: N20.0 Calculus of kidney (principal); E11.9 Type 2 diabetes mellitus without complications; H91.8X3 Other specified hearing loss, bilateral; Z01.812 Encounter for preprocedural laboratory examination

== ENCOUNTER 2018-01-21 06:55 | Inpatient (IN) | payer MEDICARE, MEDICAID ==
[~2018-01-21] VITALS: Ht 167.6 cm; Wt 78.6 kg
--- NOTE | ~2018-01-21 | OP ---
PATIENT NAME: PAULINA CHARLES MEDICAL RECORD: [id number] :43 LOCATION:D.M2 D.2109 ADMISSION DATE: SURGEON: CYRUS ESTRADA MD DATE OF OPERATION: 01/22/2018 SURGEON: Cyrus Estrada MD ANESTHESIA: General anesthesia by Tomer Thurston MD DIAGNOSIS: Right lower pole renal stone, 10 mm. PROCEDURE: Right percutaneous nephrolithotomy. FINDINGS: 1. Faintly radiodense right lower pole renal stone, 10 mm. 2. Vaginal yeast infection. 3. Candidal skin infection around previous nephrostomy tube site. 4. Left buttock/sacral decubitus ulcer stage III, which is preexisting. PROCEDURES: Right percutaneous nephrolithotomy. SPECIMENS: Right lower pole renal stone. BLOOD LOSS: Minimal. CLINICAL HISTORY: This is a 72-year-old female, who has diabetes mellitus. 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 She communicates by sign language and by reading. She is bedridden. 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 She initially presented last year with severe right flank pain due to a staghorn calculus in the right kidney. The stone is infected and the urine grew Enterococcus. She is being treated with chronic antibiotics. She had a percutaneous nephrolithotomy, which removed almost all of the stone burden except for a one lower pole renal stone located in the lower pole anterior devyn, which I could not access. Two weeks ago, she was here in the hospital as we attempted to get this remaining stone out of the right kidney. Again, the access that was provided did not allow me to get into the devyn containing the stone. We left the nephrostomy tube in place. Yesterday, she had access by Dr. Nunez into the devyn containing the stone. The OR was very backed up yesterday and as a result I canceled her surgery for that day. We let her eat and kept her in the hospital. She has been n.p.o. since midnight. She comes today to have the surgery done. As the enterococcus is sensitive to all antibiotics, I placed her on Ancef 2 grams IV director on air to the OR. She is not allergic to any medications. DESCRIPTION OF PROCEDURE: The patient was given induction of general anesthesia while she was in supine position on the stretcher. She was then placed in frog-leg position and prepped and draped. We noticed a quite severe vaginal yeast infection. Her old indwelling Souza catheter was removed. I attempted to perform cystoscopy to try to retrieve the distal end of the ureteral access catheter. However, I could not get past the urethra due to its angulation. I therefore abandoned further attempts to do this. Instead, we inserted a brand new 16-Senegalese Souza catheter into the bladder and put this to straight drainage. The patient was then turned over into the prone position on the Nolan frame. Here, we discovered that she has a sacral decubitus ulcer on the left buttock, OPERATIVE REPORT [id number] PAULINA CHARLES which is about 3 cm in length. There is some sloughing of the superficial skin and it is down to the dermis. This is preexisting as she is a senior care resident. I will have wound care see the patient afterwards in order to manage this decubitus ulcer. Also, we took the dressing off the nephrostomy tube site. The old nephrostomy tube was still present. I cut the sutures on it and we removed the old nephrostomy tube entirely. It was discarded. The nephroureteral access was still in place. We prepped around this and then prepped and draped the patient. The nephroureteral access was accessed using an Amplatz Super Stiff wire. This went down into the bladder. Once the wire was in position, the nephroureteral catheter was entirely removed and discarded. A #15 blade was used to make an incision on either side of the wire. A dual-lumen catheter was then inserted over the wire and put into the proximal ureter. Through the second lumen, we put a Sensor wire down into the bladder. This wire actually fortuitously went out of the urethra. We were able to put a hemostat on this wire to clamp it to avoid loss of our access. This wire was kept as a safety wire. We worked over the Super Stiff wire. The balloon dilator was placed over the Super Stiff wire. The balloon was inflated to 20 atmospheres of pressure to dilate the tract. The working sheath, which is 30-Senegalese was placed down over the balloon and put into the renal pelvis level. The balloon was then deflated and removed completely. We then placed our nephroscope in. I was at the UP junction. Following the wire, we used the [place] LithoClast ultrasonic modality to suction out the clots from within the kidney. I then removed the ureteral access sheath more superficially as we backed out of the UP junction. We then entered the infundibulum of the lower pole devyn and finally we were in the lower pole devyn. In the most inferior portion of the lower pole devyn was located the stone. A basket was placed around the stone and the stone was removed entirely. I performed nephroscopy again and no further stones were visible. The stone was sent to pathology for stone analysis. At this point, we removed the scope. A 24-Senegalese Malecot nephrostomy tube was placed down into the renal pelvis. This was through the working sheath. The working sheath and the Amplatz Super Stiff wire were entirely removed. The safety wire, which has hemostat clamp on it, distal to the urethra was removed entirely by pulling it downwards and out of the urethra. The nephrostomy tube was sutured to the skin using 2-0 nylon. Dressings were applied to the old nephrostomy tube site as well as to the new nephrostomy tube site. The patient was awakened and she will be brought back to recovery room and eventually to her room in the hospital. TRANSINT:[id number] Voice Confirmation ID: [id number] DOCUMENT ID: [id number] CYRUS ESTRADA MD at 1327 CC: [id number] DICTATION DATE: 01/22/18 1145 WOODEN BOAT BUILDER: 01/22/18 1310 [facility] [address] [place] [address]
--- NOTE | ~2018-01-21 | HEMODYNAMI ---
PATIENT:PAULINA CHARLES MEDICAL RECORD: [id number] : 43 LOCATION:DESIREE ADMISSION DATE: 01/21/18 Generatedon:01/21/201812:22 Patient name: PAULINA CHARLES Patient #: [id number] SSN: DO B: 1945 Date of study: 01/21/2018 Page: Of Hemodynamic Procedure Report Patient Data Patient Demographics First Name: PAULINA Gender: Female Last Name: ARACELI : 1945 Middle Initial: M Age: 72 year(s) Patient #: [id number] Race: Unknown Additional ID: [id number] Contact details Address: [address] [place] [address] State: [place] City: [place] Zip code: [address] Past Medical History Allergies: No known allergies Admission Admission Data Admission Date: 01/21/2018 Admission Time: 6:55 Procedure Procedure Types Cath Procedure Peripheral Cath Diagnostic Procedure Miscellaneous Procedure Description Procedure Date Procedure Date: 01/21/2018 Procedure Start Time: 11:34 Procedure Staff Name Function Scar Nunez MD Performing Physician Malgorzata Scott RT Monitor Cosme Rea RT Scrub Olya Pat RN Nurse Procedure Data Cath Procedure Fluoroscopy Diagnostic fluoroscopy Total fluoroscopy Time: time: 10.6 min 10.6 min Diagnostic fluoroscopy Total fluoroscopy dose: 157 dose: 157 mGy mGy Contrast Material Contrast Material Type Amount (ml) Isovue 300 55 Diagnostic catheters Device Type Used For End Catheter Placement Merit Impress KA 2 5Fr Left Coronary 40CM catheter ([id number]) Angiography Procedure Medications Medication Administration Route Dosage Oxygen etCO2 Nasal cannula 4 l/min Lidocaine 1% added to field 20 Heparin Flush Bag added to field 1 bags (1000units/500ml NS) Versed I.V. 1 mg Fentanyl I.V. 50 mcg unlisted medication I.V. 1 g Versed I.V. 1 mg Fentanyl I.V. 50 mcg Hemodynamics Rest Heart Rate: 82 (bpm) Snapshots Pre Cath Intra NCS Post Cath Vital Signs Time Heart Resp SPO2 etCO2 NIBP (mmHg) Rhythm Pain Sedation Rate (ipm) (%) (mmHg) Status Level (bpm) 11:26:33 87 8 99 24.8 151/96(128) 1 0 (11) 10(A) degree , No AV pain Block 11:30:53 84 23 27.9 153/79(122) 1 0 (11) 10(A) degree , No AV pain Block 11:35:13 81 21 28.6 146/75(117) 1 0 (11) 9(A) degree , No AV pain Block 11:39:29 79 21 24.1 149/81(121) 1 0 (11) 8(A) degree , No AV pain Block 11:43:47 77 20 99 30.1 141/74(107) 1 0 (11) 8(A) degree , No AV pain Block 11:48:03 76 20 99 33.1 137/73(104) 1 0 (11) 8(A) degree , No AV pain Block 11:52:19 77 19 99 31.6 136/67(98) 1 0 (11) 8(A) degree , No AV pain Block 11:56:33 78 20 99 30.9 138/70(104) 1 0 (11) 8(A) degree , No AV pain Block 12:00:51 75 19 98 33.9 128/58(89) 1 0 (11) 8(A) degree , No AV pain Block 12:05:03 76 18 98 33.1 129/63(97) 1 0 (11) 8(A) degree , No AV pain Block 12:09:09 82 20 99 31.6 146/84(125) 1 0 (11) 8(A) degree , No AV pain Block 12:13:25 82 23 98 28.6 144/74(110) 1 0 (11) 8(A) degree , No AV pain Block 12:17:43 78 20 98 30.1 132/61(95) 1 0 (11) 8(A) degree , No AV pain Block Medications Time Medication Route Dose Verified Delivered Reason Notes Effec tiveness by by 11:33:18 Oxygen etCO2 4 Scar John Nasal l/min Bi Nunez RN protocol cannula 11:33:29 Lidocaine 1% added 20ml Scar John to vial Enrique Nunez MD protocol field 11:38:35 Heparin Flush added 1 Scar Abbott Per Bag to bags Enrique Nunez MD protocol (1000units/500ml field NO NS) 11:38:48 Versed I.V. 1 mg Scar Dobson for Callie swartz Bi Nunez RN sedation sleeping @ 11:54:27 11:38:57 Fentanyl I.V. 50 Scar Dobson for l y Bi Yao RN sedation sleeping @ 11:54:24 11:44:00 CEFIPIME I.V. 1 g Scar Dobson Per Bi Nunez RN protocol 11:54:07 Versed I.V. 1 mg Scar Dobson for Callie swartz Bi Nunez RN sedation sleeping @ 11:54:36 11:54:15 Fentanyl I.V. 50 Scar Dobson for Callie swartz Bi Yao RN sedation sleeping @ 11:54:32 Procedure Log Time Note 11:03:15 Olya Pat RN sent for patient. Start room use. 11:03:24 Time tracking: Regular hours (M-F 7:00 - 5:00) 11:03:32 Plan of Care:Hemodynamics will remain stable., Cardiac rhythm will remain stable., Comfort level will be maintained., Respiratory function will remain adequate., Patient/ family verbilizes understanding of procedure., Procedure tolerated without complication., Recovers from procedure without complications.. 11:03:40 Patient received from Outpatients to IR Alert and oriented. Tansferred to table in Prone position. 11:03:42 Correct patient and procedure confirmed by team. 11:03:43 ECG and BP/O2 sat monitors applied to patient. 11:03:55 Full Disclosure recording started 11:03:58 - 11:04:04 H&P Date Dictated: 01/21/2018 H&P Addendum completed by physician on day of procedure. (MUST COMPLETE FOR ALL OUTPATIENTS). 11:04:05 Pre-procedure instructions explained to patient. 11:04:05 Pre-op teaching completed and patient verbalized understanding. 11:04:07 Family in waiting room. 11:04:08 Patient NPO since Midnight. 11:04:14 Is the patient allergic to Iodine/contrast media? No. 11:04:19 Is patient on blood thinner?No 11:04:21 Patient diabetic? No. 11:04:25 - 11:04:26 ----Pre-sedation anethsthesia assessment.---- 11:04:29 Previous problem with sedation/anesthesia? No ? 11:04:30 Snore? No 11:04:31 Sleep apnea? No 11:04:34 Deviated septum? No 11:04:35 Opens mouth fully? Yes 11:04:36 Sticks out tongue? Yes 11:04:38 Airway obstruction? No ? 11:04:44 Dentures? No ? 11:05:04 Patient pain scale 0/10 no pain. 11:05:18 IV patent on arrival in right forearm with 0.9% NaCl at [facility]. 11:05:19 Sharps counted by scrub and verified by R.N. 11:05:20 Alarms reviewed by RRick N. 11:06:19 Lumbar area was prepped with chlora-prep and draped in sterile fashion 11:06:24 Use device set IR Diagnostic 11:06:26 Tegaderm 4 x 4 ([id number]) opened to sterile field. 11:06:28 Sterile Angiographic Pack opened to sterile field. 11:06:29 Bag Decanter (2002) opened to sterile field. 11:13:22 NOTED ON POSTERIOR SIDE OF RIGHT LEG REDDENED AREA SIZE AND SHAPE OF CATHETER APPEARING EARLY BREAKDOWN FROM CATHETER PORT BEING LEFT UNDER PATIENT LEG WELL DRESSING AROUND EXISTING RIGHT RENAL ACCESS WITH FOUL SMELLIMG DARK BROWN DRAINAGE COMING FROM AROUND RENAL ACCESS DR NUNEZ NOTIFIED AND DARK DRAINAGE IN BAG 11:25:01 Vital chart was started 11:33:10 Physician arrived 11:33:11 --------ALL STOP TIME OUT------ 11:33:12 Final Timeout: patient, procedure, and site verified with staff and physician. All members of the team are in agreement. 11:33:15 Lumbar site verified by team. 11:33:18 Oxygen 4 l/min etCO2 Nasal cannula was administered by Olya Pat RN; Per protocol; 11:33:21 Sedation plan: IV Moderate Sedation Medication:Versed, Fentanyl 11:33:29 Lidocaine 1% 20ml vial added to field was administered by Scar Nunez MD; Per protocol; 11:33:36 Baseline sample Acquired. 11:34:03 Procedure started. 11:34:08 Local anesthetic to Lumbar area with Lidocaine 1% by Scar Nunez MD.INITIAL ACCESS ONLY 11:34:16 GLIDE CATHETER 5FR STRAIGHT 65cm (CG505) opened to sterile field. 11:34:28 CHIBA 22 X 15 needle opened to sterile field. 11:38:35 Heparin Flush Bag (1000units/500ml NS) 1 bags added to field was administered by Scar Nunez MD; Per protocol; 11:38:48 Versed 1 mg I.V. was administered by Olya Pat RN; for sedation; 11:38:57 Fentanyl 50 mcg I.V. was administered by Olya Pat RN; for sedation; 11:42:49 KIT, INTRODUCER ACCUSTICK II W/C ([id number]) opened to sterile field. 11:44:00 CEFIPIME 1 g I.V. was administered by Olya Pat RN; Per protocol ; 11:54:07 Versed 1 mg I.V. was administered by Olya Pat RN; for sedation; 11:54:15 Fentanyl 50 mcg I.V. was administered by Olya Pat RN; for sedation; 11:54:24 Effectiveness of Fentanyl delivered @ 11:38:57 is: Mostly sleeping 11:54:27 Effectiveness of Versed delivered @ 11:38:48 is: Mostly sleeping 11:54:32 Effectiveness of Fentanyl delivered @ 11:54:15 is: Mostly sleeping 11:54:36 Effectiveness of Versed delivered @ 11:54:07 is: Mostly sleeping 12:11:13 Procedure ended.(Physican Out) 12:16:27 GLIDE WIRE Angled Super Stiff 180cm ([id number]) opened to sterile field. 12:16:53 GLIDE WIRE ANGLE 180cm ([id number]) opened to sterile field. 12:16:55 [place] 145cm wire ([id number]) opened to sterile field. 12:17:00 A [employer] KA 2 5Fr 40CM catheter ([id number]) was advanced over the wire and used for Left Coronary Angiography. 12:17:01 Bush 180 wire (C99126) opened to sterile field. 12:17:14 Fluoroscopy time 10.60 minutes. 12:17:20 Flurop Dose total: 157 12:17:20 Fluoroscopy dose: 157 mGy 12:17:26 Contrast amount:Isovue 300 55ml. 12:17:28 Sharps counted by scrub and verified by R.N. 12:17:29 Insertion/operative site no bleeding no hematoma. 12:17:36 Post-op/insertion site Left Lumbar area dressed using a 4 x 4 and Tegaderm. 12:17:41 Post Lumbar area:stable 12:17:44 Post procedure instruction explained to patient.Patient verbalizes understanding. 12:21:15 Procedure and supply charges have been captured, reviewed, submitted an d are correct. 12:21:19 Report given to Outpatients. 12:21:24 Patient transfered to Outpatients with Stretcher. 12:22:05 Vital chart was stopped Device Usage Item Name Manufacture Quantity Catalog Hospital Part Current Minimal Lot# / Number Charge Number Stock Stock Serial# Code Tegaderm 4 x 3M 1 [id number] 5 4 (1626W) Sterile Cardinal 1 [id number] [id number] 5 Angiographic Health Pack Bag Decanter Microtek 1 [id number] 59320 [id number] 5 () [employer] Inc. GLIDE Terumo 1 [id number] 863647 524909 5 CATHETER 5FR STRAIGHT 65cm (CG505) CHIBA 22 X [employer] 1 [id number] 550535 327126 5 15 needle KIT, [place] 1 [id number] 562890 907385 615945 5 INTRODUCER Scientific ACCUSTICK II W/C ([id number]) GLIDE WIRE Terumo 1 [id number] 823151 566510 5 Angled Super Stiff 180cm (WU6781) GLIDE WIRE Terumo 1 [id number] 090978 523866 165311 5 ANGLE 180cm (GB5859) [place] [employer] 1 D53422 910053 274562 5 [id number] 145cm wire (N51969) Merit Merit 1 [id number] 150570 079043 5 Impress KA 2 Medical 5Fr 40CM catheter ([id number]) Bush 180 [facility] 1 T84257 197785 291791 [id number] 5 [id number] wire (F08785) Signature Audit Freedom Stage Time Signature Unsigned Intra-Procedure 01/21/2018 Cosme 12:22:03 PM [facility] RT (R) (CV) Signatures Monitor : Malgorzata Scott RT Signature : Date : Time : [id number] [place] [address]
[2018-01-21 07:21] LABS: BASOPHILS 0.2 % (0-2); EOSINOPHILS 2.2 % (0-7); HEMATOCRIT 31.6 % (36.0-48.0); IMMATURE GRANULOCYTES 0.2 % (0-5); LYMPHOCYTES 20.2 % (15-50); MCH 29.6 pg (26.0-34.0); MCHC 31.6 g/dL (31.0-37.0); MCV 93.5 fL (80.0-100.0); MEAN PLATELET VOLUME 9.1 fL (7.4-10.4); MONOCYTES 8.7 % (2-11); NEUTROPHILS 68.5 % (40-80); RBC 3.38 10x6/uL (4.00-5.40); RDW 14.1 % (11.5-14.5); WBC 6.4 10x3/uL (4.8-10.8)
[2018-01-21 07:38] LABS: ANION GAP 12.7 mmol/L (8-16); CALCIUM 8.6 mg/dL (8.5-10.1); CARBON DIOXIDE 27.6 mmol/L (21.0-32.0); CREATININE - SERUM 1.6 mg/dL (0.6-1.3); POTASSIUM - SERUM 4.3 mmol/L (3.5-5.1)
[2018-01-21 07:40] LABS: PLATELET COUNT 170 10x3/uL (130-400)
[2018-01-21 08:24] LABS: APTT 40.1 SECONDS (22.8-39.4); INR 1.18 (0.85-1.17); PROTIME 14.6 SECONDS (11.6-15.0)
[2018-01-21 10:07] VITALS: BP 137/78
[2018-01-21] MEDS ORDERED: EPOGEN4000 U/ML SC (10:09)
[2018-01-21] MEDS ORDERED: REMERON15 MG PO (10:21)
[2018-01-21 18:11] VITALS: BP 136/75; BMI 24.2
[2018-01-21 20:00] VITALS: BP 134/75
[2018-01-22] VITALS: BP 137/74
[2018-01-22 04:00] VITALS: BP 116/62
[2018-01-22 11:00] VITALS: BP 124/64
[2018-01-22 20:00] VITALS: BP 104/50
[2018-01-23] VITALS: BP 100/66
[2018-01-23 04:00] VITALS: BP 110/75
[2018-01-23 13:21] VITALS: BP 103/57
[2018-01-23 16:10] VITALS: BP 110/60
[2018-01-23 20:00] VITALS: BP 129/63
[2018-01-24] VITALS (19 sets, daily range): BP systolic 97–159; BP diastolic 59–96; Ht 167.6 cm; Wt 78.6 kg
[2018-01-24 05:15] LABS: BASOPHILS 0.2 % (0-2); EOSINOPHILS 1.9 % (0-7); HEMATOCRIT 31.4 % (36.0-48.0); HEMOGLOBIN 9.9 g/dL (12-16); IMMATURE GRANULOCYTES 0.2 % (0-5); LYMPHOCYTES 12.5 % (15-50); MCH 29.2 pg (26.0-34.0); MCHC 31.5 g/dL (31.0-37.0); MCV 92.6 fL (80.0-100.0); MEAN PLATELET VOLUME 9.7 fL (7.4-10.4); NEUTROPHILS 77.2 % (40-80); PLATELET COUNT 163 10x3/uL (130-400); RBC 3.39 10x6/uL (4.00-5.40); RDW 14.2 % (11.5-14.5); WBC 5.7 10x3/uL (4.8-10.8)
[2018-01-24 05:29] LABS: ALBUMIN 2.1 g/dL (3.4-5.0); ANION GAP 12.5 mmol/L (8-16); BILIRUBIN - TOTAL 0.4 mg/dL (0.2-1.3); CALCIUM 7.9 mg/dL (8.5-10.1); CARBON DIOXIDE 22.9 mmol/L (21.0-32.0); CREATININE - SERUM 1.7 mg/dL (0.6-1.3); POTASSIUM - SERUM 4.4 mmol/L (3.5-5.1); PROTEIN - SERUM 6.6 g/dL (6.4-8.2)
[2018-01-25] VITALS (22 sets, daily range): BP systolic 101–155; BP diastolic 50–90
[2018-01-26 03:00] VITALS: BP 107/54
[2018-01-26 05:38] LABS: BASOPHILS 0.5 % (0-2); EOSINOPHILS 5.7 % (0-7); HEMATOCRIT 28.8 % (36.0-48.0); HEMOGLOBIN 8.7 g/dL (12-16); LYMPHOCYTES 36.1 % (15-50); MCH 28.4 pg (26.0-34.0); MCHC 30.2 g/dL (31.0-37.0); MCV 94.1 fL (80.0-100.0); MONOCYTES 9.4 % (2-11); NEUTROPHILS 48.3 % (40-80); PLATELET COUNT 152 10x3/uL (130-400); RBC 3.06 10x6/uL (4.00-5.40); RDW 14.4 % (11.5-14.5); WBC 4.4 10x3/uL (4.8-10.8)
[2018-01-26 06:18] LABS: ANION GAP 8.9 mmol/L (8-16); CALCIUM 7.8 mg/dL (8.5-10.1); CARBON DIOXIDE 25.4 mmol/L (21.0-32.0); CREATININE - SERUM 1.5 mg/dL (0.6-1.3); POTASSIUM - SERUM 4.3 mmol/L (3.5-5.1)
[2018-01-26 07:00] VITALS: BP 128/67
[2018-01-26 11:00] VITALS: BP 146/85
[2018-01-26 16:32] VITALS: BP 125/73
[2018-01-26 20:01] VITALS: BP 130/66
[2018-01-27 03:45] VITALS: BP 143/77
[2018-01-27 08:20] VITALS: BP 119/52
[2018-01-27 12:06] VITALS: BP 140/85
[2018-01-31 13:20] LABS: CALCULI - AMMONIUM ACID URATE 75 % (()); CALCULI - CA OXALATE MONOHYDR 10 % (()); CALCULI - COLOR Tan (()); CALCULI - COMMENT Note: (()); CALCULI - MAGNESIUM AMMON PHOS 10 % (()); CALCULI - SIZE 9x6x5 mm (())
== END 2018-01-27 13:45 | DRG 659 ==
LOC: D.OPS 06:55 → D.M2 06:55 → D.PAN 10:00 → D.OPS 10:00 → D.RAD 10:00 → D.SP 10:00 → D.OPS 13:00 → D.M2 17:52 → D.OPS 01-23 23:23 → D.M2 01-23 23:24 → D.ICU 01-23 23:24 → D.MS 01-26 13:19
PROVIDERS: General Practice; Urology
PROC: 0T9330Z Drainage of Right Kidney Pelvis with Drainage Device, Percutaneous Approach (ICD-10-PCS; principal; 2018-01-21 10:00)
PROC: 0TC03ZZ Extirpation of Matter from Right Kidney, Percutaneous Approach (ICD-10-PCS; 2018-01-22)
PROC: 0TP5X0Z Removal of Drainage Device from Kidney, External Approach (ICD-10-PCS; 2018-01-24)
DX: N20.0 Calculus of kidney (principal); L89.323 Pressure ulcer of left buttock, stage 3; N39.0 Urinary tract infection, site not specified; H91.3 Deaf nonspeaking, not elsewhere classified; E11.42 Type 2 diabetes mellitus with diabetic polyneuropathy; Z79.4 Long term (current) use of insulin; N31.8 Other neuromuscular dysfunction of bladder; R33.9 Retention of urine, unspecified; I50.9 Heart failure, unspecified; B37.3 Candidiasis of vulva and vagina; B37.2 Candidiasis of skin and nail; E11.649 Type 2 diabetes mellitus with hypoglycemia without coma; F32.9 Major depressive disorder, single episode, unspecified; B95.2 Enterococcus as the cause of diseases classified elsewhere

== ENCOUNTER 2018-02-19 14:18 | Observation (INO) | payer MEDICARE, MEDICAID ==
[~2018-02-19] VITALS: Ht 167.6 cm; Wt 64.3 kg
--- NOTE | ~2018-02-19 | EC ---
PATIENT:PAULINA CHARLES DATE OF SERVICE: 02/19/18 SEX: F MEDICAL RECORD: [id number] DATE OF : 41 LOCATION:D.M2 D.212 AGE OF PATIENT: 72 ADMISSION DATE: 02/19/18 REFERRING PHYSICIAN: INTERPRETING PHYSICIAN: GRAY JONES MD ECHOCARDIOGRAM REPORT ECHO CHARGES 4 ECHO COMPLETE Date: 02/20 CLINICAL DIAGNOSIS: CHF ECHOCARDIOGRAPHIC MEASUREMENTS (adult normal given) AC root (d.<3.7cm) 2.8 cm LV Septum d (<1.2 cm> 1.1 cm Valve Excursion 0.8 cm LV Septum (systole) 1.1 cm Left Atria (s.<4.0cm> 3.7 cm LVPW d(<1.2cm) 0.9 cm RV (d.<2.3cm) 2.3 cm LVPW (sytole) 1.0 cm LV diastole(<5.6CM) 5.6 cm MV E-F(>70mm/sec) cm LV systole 5.4 cm LVOT Diameter 1.8 cm MV exc.(>10mm) cm Est.ejection fraction (50-75%) % DOPPLER: LVIT cm/sec A 106 cm/sec E 105 cm/sec LA cm/sec RVSP 31.0 mmHg LVOT 79 cm/sec AOP1/2T m/s Asc. Ao 260 cm/sec RVOT 74 cm/sec RA cm/sec PA 89 cm/sec AV Gradient Peak 26.9 mmHg AV Mean 16.6 mmHg AV Area 0.7 cm MV Gradient Peak 5.5 mmHg MV Mean 2.4 mmHg MV Area cm COMMENTS: Stripping Cutter And Winder: Sheila NEVES Motor Vehicle Clerk: Humberto Varghese TAPE# PACS Pericardial Effusion N DATE OF SERVICE: 02/20/2018 ECHOCARDIOGRAM FINDINGS: 1. Left ventricular chamber size is mildly dilated. Left ventricular systolic function is markedly reduced. Overall ejection fraction is estimated at 25%. 2. Left atrium, right atrium, and right ventricle chamber sizes are within normal limit. 3. Valvular structures have normal structure and motion. ECHOCARDIOGRAM REPORT [id number] PAULINA CHARLES 4. Doppler interrogation reveals [id number] aortic insufficiency, moderate mitral regurgitation, and mild tricuspid regurgitation. No other valvular insufficiency or stenosis. Pulmonary systolic pressure is estimated at 31 mmHg. 5. A large pericardial effusion is present; however, this does not appear to be hemodynamically compromising. There is no evidence of right atrial or right ventricular diastolic collapse. No evidence of tamponade. 6. No evidence of left ventricular thrombus. TRANSINT:[id number] Voice Confirmation ID: [id number] DOCUMENT ID: [id number] GRAY JONES MD at 1752 CC: [id number] DICTATION DATE: 02/21/18 1124 LEAD REFINERY SUPERVISOR: 02/21/18 1346 DIS IN 02/22/18 [id number] [place] [address]
--- NOTE | ~2018-02-19 | HP ---
PATIENT: PAULINA CHARLES MEDICAL RECORD: [id number] ACCOUNT: [id number] LOCATION:[address] : [birth year] ADMISSION DATE: 02/19/18 HISTORY AND PHYSICAL EXAMINATION DATE OF ADMISSION: 02/19/2018 CHIEF COMPLAINT: Decreased appetite. HISTORY OF PRESENT ILLNESS: The patient is a 72-[facility]-old [facility] resident, who apparently presented to the Emergency Room at the request of the [facility] that she should be evaluated. Apparently, the patient has had decreased appetite over the past several days. The patient is admitted to Dr. Moya on unassigned medicine. The patient apparently is deaf and cannot relay any information. All information is coming from notes from the [facility]. Apparently over the last several days, the patient has had decrease in appetite. No other symptoms. The patient apparently has had a cerebrovascular accident. She has had history of deafness, anemia, renal calculi, some renal insufficiency in the past, heart failure, essential hypertension, gout, gastroesophageal reflux, vitamin B deficiency, type 2 diabetes mellitus. FAMILY HISTORY: Cannot be obtained. SOCIAL HISTORY: Cannot be obtained. ALLERGIES: No known drug allergies. According to [facility] notes, it looks like the patient may be a DNR. MEDICATIONS: Include lactobacillus 2 caps daily, Epogen 4000 international units subcutaneous, glipizide 10 mg p.o. b.i.d., Lasix 20 mg once a day, lisinopril 10 mg once a day, MiraLax 1 scoop every day, NovoLog on a sliding scale, Remeron 15 mg daily, tramadol 50 mg p.o. b.i.d., vitamin B complex. HABITS: Cannot be ascertained as well. REVIEW OF SYSTEMS: Cannot be evaluated. PHYSICAL EXAMINATION: GENERAL: In the Emergency Room, the patient was afebrile. VITAL SIGNS: Stable. The patient is unable to communicate orally, although she is alert. HEENT: Unremarkable. NECK: Supple. There is no adenopathy. HEART: Has a regular rate. LUNGS: She has some rales bibasilar. ABDOMEN: Soft, nontender. EXTREMITIES: She has ischemic changes noted in the feet. LABORATORY DATA: The patient had a chest x-ray. Chest x-ray revealed stable cardiomegaly with mild interstitial prominence related to mild pulmonary edema, congestive heart failure. The patient's EKG revealed normal sinus rhythm, left atrial enlargement, left bundle-branch block, rate of 75. She had a white count of 5.7, hemoglobin 12.2, hematocrit 40.5, and platelets are 100. The patient has sodium of 146, potassium 4.7, chloride 111, CO2 is 27.5, her BUN was 28, HISTORY AND PHYSICAL [id number] PAULINA CHARLES creatinine of 1.6, glucose was 84. The patient had moderate bacteria in her urine. She had a troponin of 0.192, checked later was 0.249. Her proBNP was 196,476. ASSESSMENT: Congestive heart failure, cardiac ischemia, history of left bundle-branch block, diabetes mellitus, hypertension, history of deafness, depression. PLAN: The patient will be given IV Lasix 40 mg every 8 hours. Echocardiogram will be obtained. Cardiology consultation will be obtained. We will contact [facility] to check on the code status of this patient. Continue to evaluate. TRANSINT:[id number] Voice Confirmation ID: [id number] DOCUMENT ID: [id number] NOHEMI NAVARRO MD at 0743 CC: [id number] DICTATION DATE: 02/20/18 0745 DOG WARDEN: 02/20/18 1049 DIS IN 02/22/18 [id number] [place] [address]
[~2018-02-19 14:18] MED LIST changes: +EPOGEN4000 U/ML SC; +REMERON15 MG PO
[2018-02-19 15:59] LABS: ALBUMIN 2.7 g/dL (3.4-5.0); ANION GAP 12.2 mmol/L (8-16); BILIRUBIN - TOTAL 1.05 mg/dL (0.2-1.3); CALCIUM 8.7 mg/dL (8.5-10.1); CARBON DIOXIDE 27.5 mmol/L (21.0-32.0); CREATININE - SERUM 1.6 mg/dL (0.6-1.3); POTASSIUM - SERUM 4.7 mmol/L (3.5-5.1); PROTEIN - SERUM 7.4 g/dL (6.4-8.2)
[2018-02-19 16:36] LABS: BASOPHILS 0.3 % (0-2); EOSINOPHILS 1.2 % (0-7); HEMATOCRIT 40.5 % (36.0-48.0); HEMOGLOBIN 12.2 g/dL (12-16); IMMATURE GRANULOCYTES 0.2 % (0-5); LYMPHOCYTES 30.8 % (15-50); MCH 28.4 pg (26.0-34.0); MCHC 30.1 g/dL (31.0-37.0); MCV 94.4 fL (80.0-100.0); MEAN PLATELET VOLUME 11.6 fL (7.4-10.4); NEUTROPHILS 60.5 % (40-80); PLATELET COUNT 100 10x3/uL (130-400); RBC 4.29 10x6/uL (4.00-5.40); RDW 16.2 % (11.5-14.5); WBC 5.7 10x3/uL (4.8-10.8)
[2018-02-19 17:33] LABS: APPEARANCE CLEAR (CLEAR); BILIRUBIN NEGATIVE (NEGATIVE); COLOR YELLOW (YELLOW); GLUCOSE NEGATIVE (NEGATIVE); KETONE NEGATIVE (NEGATIVE); NITRITE NEGATIVE (NEGATIVE); PROTEIN 1+ mg/dL (NEGATIVE); SPECIFIC GRAVITY 1.015 (1.005-1.020); UROBILINOGEN NORMAL (NORMAL)
[2018-02-19 17:34] LABS: BACTERIA MODERATE /hpf (NONE SEEN); EPITHELIAL CELLS 0-5 /hpf (0-5); WHITE CELLS - URINE 0-5 /hpf (0-5)
[2018-02-19 20:00] VITALS: BP 166/82
[2018-02-19 21:00] VITALS: BP 162/99
[2018-02-19 21:11] LABS: CKMB 1.1 U/L (0.0-3.6); CREATINE KINASE 29 UL (21-215)
[2018-02-19 21:12] LABS: PRO BNP 196476 pg/mL (0-125); TROPONIN-I 0.192 ng/mL (0.000-0.060)
[2018-02-19 22:00] VITALS: BP 174/96
[2018-02-20] VITALS (11 sets, daily range): BP systolic 122–158; BP diastolic 65–98; Ht 167.6 cm; Wt 64.3 kg
[2018-02-20 06:47] LABS: BASOPHILS 0.2 % (0-2); EOSINOPHILS 1.5 % (0-7); HEMATOCRIT 38.1 % (36.0-48.0); HEMOGLOBIN 11.5 g/dL (12-16); IMMATURE GRANULOCYTES 0.2 % (0-5); LYMPHOCYTES 27.1 % (15-50); MCH 28.3 pg (26.0-34.0); MCHC 30.2 g/dL (31.0-37.0); MCV 93.8 fL (80.0-100.0); MEAN PLATELET VOLUME 11.5 fL (7.4-10.4); PLATELET COUNT 106 10x3/uL (130-400); RBC 4.06 10x6/uL (4.00-5.40); RDW 16.2 % (11.5-14.5); WBC 6.1 10x3/uL (4.8-10.8)
[2018-02-20 07:42] LABS: ANION GAP 16.4 mmol/L (8-16); CALCIUM 8.7 mg/dL (8.5-10.1); CARBON DIOXIDE 23.9 mmol/L (21.0-32.0); CREATININE - SERUM 1.5 mg/dL (0.6-1.3); POTASSIUM - SERUM 4.3 mmol/L (3.5-5.1)
[2018-02-20 07:43] LABS: TROPONIN-I 0.249 ng/mL (0.000-0.060)
[2018-02-20 08:03] LABS: THYROID STIMULATING HORMONE 0.99 uIU/mL (0.36-3.74)
[2018-02-20 08:15] LABS: ALBUMIN 2.4 g/dL (3.4-5.0); BILIRUBIN - TOTAL 1.26 mg/dL (0.2-1.3); PROTEIN - SERUM 6.7 g/dL (6.4-8.2); T4 THYROXINE 7.2 ug/dL (4.7-13.3)
[2018-02-21 02:05] VITALS: BP 122/67
[2018-02-21 04:00] VITALS: BP 115/74
[2018-02-21 07:29] LABS: BASOPHILS 0.2 % (0-2); EOSINOPHILS 4.7 % (0-7); HEMATOCRIT 36.6 % (36.0-48.0); IMMATURE GRANULOCYTES 0.2 % (0-5); LYMPHOCYTES 29.6 % (15-50); MCH 28.4 pg (26.0-34.0); MCHC 30.1 g/dL (31.0-37.0); MCV 94.3 fL (80.0-100.0); MEAN PLATELET VOLUME 10.9 fL (7.4-10.4); MONOCYTES 8.5 % (2-11); NEUTROPHILS 56.8 % (40-80); PLATELET COUNT 103 10x3/uL (130-400); RBC 3.88 10x6/uL (4.00-5.40); RDW 16.1 % (11.5-14.5); WBC 5.5 10x3/uL (4.8-10.8)
[2018-02-21 08:03] VITALS: BP 117/73
[2018-02-21 08:23] LABS: CKMB 0.9 U/L (0.0-3.6); MAGNESIUM - SERUM 1.8 mg/dL (1.8-2.4)
[2018-02-21 08:26] LABS: PRO BNP 174550 pg/mL (0-125); TROPONIN-I 0.252 ng/mL (0.000-0.060)
[2018-02-21 08:36] LABS: ALBUMIN 2.1 g/dL (3.4-5.0); ALKALINE PHOSPHATASE 107 U/L (46-116); BILIRUBIN - TOTAL 0.93 mg/dL (0.2-1.3); CALC OSMOLALITY 295 mosm/kg (275-300); CALCIUM 8.2 mg/dL (8.5-10.1); CHLORIDE - SERUM 109 mmol/L (98-107); CREATININE - SERUM 1.6 mg/dL (0.6-1.3); GLUCOSE 75 mg/dL (74-106); POTASSIUM - SERUM 3.9 mmol/L (3.5-5.1); PROTEIN - SERUM 6.2 g/dL (6.4-8.2); SODIUM 146 mmol/L (136-145); UREA NITROGEN 29 mg/dL (7-18); eGFR NON AFRICAN AMERICAN 33 mL/min (90-120)
[2018-02-21 08:38] LABS: ALT (SGPT) 9 U/L (10-68); CARBON DIOXIDE 30.1 mmol/L (21.0-32.0)
[2018-02-21 11:10] VITALS: BP 153/84
[2018-02-21 21:12] VITALS: BP 121/64
[2018-02-22 02:11] VITALS: BP 139/64
[2018-02-22 04:30] LABS: BASOPHILS 0.2 % (0-2); EOSINOPHILS 3.2 % (0-7); HEMATOCRIT 38.5 % (36.0-48.0); HEMOGLOBIN 11.6 g/dL (12-16); IMMATURE GRANULOCYTES 0.2 % (0-5); LYMPHOCYTES 25.9 % (15-50); MCH 28.2 pg (26.0-34.0); MCHC 30.1 g/dL (31.0-37.0); MCV 93.7 fL (80.0-100.0); MONOCYTES 7.2 % (2-11); NEUTROPHILS 63.3 % (40-80); PLATELET COUNT 111 10x3/uL (130-400); RBC 4.11 10x6/uL (4.00-5.40); WBC 5.3 10x3/uL (4.8-10.8)
[2018-02-22 05:07] LABS: ALBUMIN 2.2 g/dL (3.4-5.0); ALKALINE PHOSPHATASE 106 U/L (46-116); ALT (SGPT) 9 U/L (10-68); BILIRUBIN - TOTAL 1.21 mg/dL (0.2-1.3); C-REACTIVE PROTEIN 5.1 mg/dL (0.0-0.9); CALC OSMOLALITY 293 mosm/kg (275-300); CALCIUM 8.4 mg/dL (8.5-10.1); CARBON DIOXIDE 31.5 mmol/L (21.0-32.0); CHLORIDE - SERUM 107 mmol/L (98-107); CKMB 0.7 U/L (0.0-3.6); CREATINE KINASE 18 UL (21-215); CREATININE - SERUM 1.6 mg/dL (0.6-1.3); GLUCOSE 84 mg/dL (74-106); MAGNESIUM - SERUM 1.8 mg/dL (1.8-2.4); PHOSPHOROUS 3.1 mg/dL (2.5-4.9); POTASSIUM - SERUM 3.9 mmol/L (3.5-5.1); PROTEIN - SERUM 6.4 g/dL (6.4-8.2); SODIUM 145 mmol/L (136-145); T4 THYROXIN - FREE 1.38 ng/dL (0.76-1.46); THYROID STIMULATING HORMONE 1.15 uIU/mL (0.36-3.74); UREA NITROGEN 29 mg/dL (7-18); eGFR NON AFRICAN AMERICAN 33 mL/min (90-120)
[2018-02-22 05:22] LABS: ERYTHROCYTE SEDIMENTATION RATE 19 mm/hr (0-30)
[2018-02-22 06:12] VITALS: BP 114/67
[2018-02-22 08:00] VITALS: BP 122/72
[2018-02-22 10:59] VITALS: BP 128/75
== END 2018-02-22 15:32 | disposition home or self-care (01) ==
LOC: D.ER 14:18 → D.EDHOLD 21:39 → D.ER 21:39 → D.M2 21:39 → OBSVTIME 21:39 → D.M2 02-20 10:53 → D.EDHOLD 02-20 10:53 → D.M2 02-20 13:20
PROVIDERS: Emergency Medicine; Family Medicine
DX: I11.0 Hypertensive heart disease with heart failure (principal); N39.0 Urinary tract infection, site not specified; R62.7 Adult failure to thrive; I50.23 Acute on chronic systolic (congestive) heart failure; I25.9 Chronic ischemic heart disease, unspecified; I44.7 Left bundle-branch block, unspecified; E11.649 Type 2 diabetes mellitus with hypoglycemia without coma; K21.9 Gastro-esophageal reflux disease without esophagitis; R79.89 Other specified abnormal findings of blood chemistry; E86.0 Dehydration; F32.9 Major depressive disorder, single episode, unspecified; H91.90 Unspecified hearing loss, unspecified ear; I13.10 Hypertensive heart and chronic kidney disease without heart failure, with stage 1 through stage 4 chronic kidney disease, or unspecified chronic kidney disease; N18.9 Chronic kidney disease, unspecified; D63.1 Anemia in chronic kidney disease